=== PATIENT | female | born 1980 | race Caucasian/White ===

== ENCOUNTER → 2018-10-04 14:54 | Outpatient (CLI) | payer OTHER, SELFPAY ==
--- NOTE | 2018-10-04 14:58 | MR_ITS ---
MR ankle RT wo/w con CLINICAL INDICATION: Bilateral ankle pain following injury, posterior tibial strain, anterior talofibular ligament sprain, strain of the peroneal muscle group, peroneal tendinitis ITS.REASON: pain, ankle sprain ORDERING PHYSICIAN: Monica Dillon DPM PATIENT AGE: 38 years Comparison: 09/26/2018 TECHNIQUE: Multiplanar multiecho sequences are performed of the ankle without and with gadolinium enhancement. FINDINGS: No fracture or bone bruises evident Edema is present within the subcutaneous tissues along the medial aspect of the lower leg and ankle and to a lesser extent laterally. The anterior and posterior tibiofibular ligaments appear intact. The anterior tibiofibular ligament is however somewhat thin There does appear to be tear of the anterior talofibular ligament. The posterior talofibular ligament shows some increased signal but does appear intact. The deltoid ligament appears intact as does the Achilles tendon. The posterior tibialis, flexor digitorum longus, and flexor hallucis longus tendons appear intact.. There does appear to be a tear of the peroneal longus tendon approximately 2.8 cm distal to the tip of the fibula. The tendon fragments appear retracted by approximately 2.5 cm. There may be a few intact fibers present. The peroneal brevis appears intact.. The other tendons and ligaments appear intact. IMPRESSION: 1. Tear of the anterior talofibular ligament with sprain of the posterior talofibular ligament. 2. Tear of the peroneal longus tendon as described above. There may be a few intact fibers present. 3. Soft tissue swelling along the medial aspect of the ankle
== END ==
PROVIDERS: PCP Family Medicine; Visit Provider Podiatrist
DX: S93.401A Sprain of unspecified ligament of right ankle, initial encounter (principal)
CPT/HCPCS: 73723; A9576

== ENCOUNTER → 2018-10-10 15:21 | Outpatient (CLI) | payer OTHER, SELFPAY ==
[2018-10-10 16:28] LABS: Basophils % 0.4 % (0.1-2.0); Eosinophils % 0.2 % (0.1-12.0); Hematocrit 39.6 % (37.0-47.0); Lymphocytes # 1.8 K/mm3 (0.7-4.5); Lymphocytes % 24.5 % (10-50); Mean Corpuscular HGB Conc 32.9 g/dL (31.8-35.4); Mean Corpuscular Hemoglobin 29.2 pg (27.0-31.2); Mean Corpuscular Volume 88.9 fl (81-99); Mean Platelet Volume 8.3 fl (7.4-10.4); Monocytes # 0.4 K/mm3 (0.1-1.0); Monocytes % 5.8 % (1.7-9.3); Platelet Count 303 K/mm3 (142-424); Red Blood Count 4.45 M/mm3 (4.20-5.40); Red Cell Distribution Width 13.1 % (11.5-17.5); White Blood Count 7.3 K/mm3 (4.8-10.8)
[2018-10-10 17:16] LABS: Anion Gap 14.1 mEq/L (5-15); Blood Urea Nitrogen 14 mg/dL (7-18); Calcium 9.7 mg/dL (8.5-10.1); Carbon Dioxide 28 mmol/L (21.0-32.0); Chloride 103 mmol/L (98-107); Creatinine,Serum 0.67 mg/dL (0.55-1.02); Estimated Glomerular Filt Rate 100 ml/min (>60); GFR (African American) 121 ML/MIN (>60); Glucose 87 mg/dL (74-106); Potassium 4.1 mmoL/L (3.5-5.1); Sodium 141 mmol/L (136-145)
== END ==
PROVIDERS: PCP Family Medicine; Visit Provider Podiatrist
DX: Z01.818 Encounter for other preprocedural examination (principal); S86.311D Strain of muscle(s) and tendon(s) of peroneal muscle group at lower leg level, right leg, subsequent encounter
CPT/HCPCS: 36415; 80048; 85025; 93005

== ENCOUNTER → 2018-11-29 13:25 | Outpatient (CLI) | payer OTHER, SELFPAY ==
--- NOTE | 2018-11-29 13:30 | XR_ITS ---
PROCEDURE: XR ANKLE WT BEARING RT MIN 3V CLINICAL INDICATION: Post-op Follow-up ORIF COMPARISON: Ankle R from 09/11/2018 Ankle R from 09/26/2018 FINDINGS: Status post lateral bone plate placement with translucent fixator through the distal aspect of the tibia and fibula with a button along the medial aspect of the distal tibia and a small metallic anchor in the distal fibula. There is good alignment. IMPRESSION: Postsurgical changes as described above Dictated by: Bret Devi MD 11/29/2018 14:58 Electronically signed by Bret Devi MD in [place] 11/29/2018 14:58
== END ==
PROVIDERS: PCP Family Medicine; Visit Provider Podiatrist
DX: Z98.890 Other specified postprocedural states (principal); M25.571 Pain in right ankle and joints of right foot
CPT/HCPCS: 73610

== ENCOUNTER 2019-01-12 08:30 | Outpatient (RCR) | payer OTHER, SELFPAY ==
--- NOTE | 2018-12-19 16:33 | HMH.PTOPEV ---
PT Outpatient Evaluation Rehab PT Outpatient Evaluation Start: 12/19/18 15:50 Freq: Status: Active Protocol: Document 12/19/18 15:51 PEREZ (Rec: 12/19/18 16:33 ISSAFABY [id number]) Electronically Signed By Alvaro Prajapati PT 12/19/18 15:51 Outpatient Therapy Subjective History Subjective History This is the initial Physical Therapy evaluation for Winifred Fulton. Pt is a 38 y/o female referred to PT s/p R ankle surgery. Pt had syndesmosis repair, peroneal tendon debridement and ATF repair. 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 Pt reports she just thought she sprained her ankle. Pt reports this occurred 09/09/18 and she saw MD 09/11/18. Pt reports she was referred to DPM for care and had sx on 10/21/18. Pt is PPWB in boot, pt came in w/out axillary crutches. Pt also reports she is supposed to be on light duty but was full duty today and her ankle is hurting. Chief Complaint Pain,Stiff,Swelling,Weakness Symptom Type Ache,Throb,Sharp,Dull,Stabbing ,Burning,Shooting Symptoms Relieved By Rest/Positioning,Ice,OTC Meds, Prescription Meds Symptoms Aggravated By Standing,Physical Activity, Walking Prior Functional Limitations None Current Functional Limitations Housework,Driving,Squatting, Recreation Activity,Walking, Stairs Symptom Description Intermittent Level of pain today (0-10) 5 Pain scale - at its best (0-10) 0 Pain scale - at its worst (0-10) 5 Ankle/Foot Eval Gait Observation General Gait Pattern Observation Antalgic Gait,Decrease Weight Bear (R) Assistive Device Ambulation Assistive Device None Palpation Tenderness right Ankle/Foot Palpation Findings Tenderness Ankle/Foot Palpation Overall Comment TTP along incision/peroneal line and T/C joint ATF TTP positive Deltoid ligament TTP positive ROM Ankle/Foot Dorsiflexion w/Knee Extended -12 Active Range Motion (degrees) Ankle/Foot Plantar Flexion Active Range 40 o
== END 2019-01-12 08:35 | disposition home or self-care (01) ==
LOC: PT 08:30
PROVIDERS: Visit Provider Podiatrist
DX: M25.571 Pain in right ankle and joints of right foot (principal); Z98.890 Other specified postprocedural states
CPT/HCPCS: 97010; 97014; 97016; 97033; 97035; 97110; 97140; 97163; 97164; G0283

== ENCOUNTER → 2019-01-26 08:58 | Outpatient (CLI) | payer OTHER, SELFPAY ==
--- NOTE | 2019-01-26 09:03 | XR_ITS ---
PROCEDURE: XR FOOT WT BEARING RT 3V CLINICAL INDICATION: post op Pain in the arch of the foot status post surgery COMPARISON: FTR3 FOOT-RT-3 VIEWS from 03/19/2015 Foot R from 09/26/2018 XR ANKLE WT BEARING RT MIN 3V from 11/29/2018 XR ANKLE WT BEARING RT MIN 3V from 01/26/2019 FINDINGS: Hallux valgus with osteoarthritis of the 1st MTP joint with bunion formation at the distal aspect of the 1st metatarsal. No acute fracture or dislocation. Status post syndesmotic repair of the distal tib fib with lateral bone plate and medial metallic button as well as the small anchor screw in the distal fibula unchanged. The ankle mortise is preserved. There is some faint subcortical lucency of the talar dome both medially laterally and centrally. Other findings:None. IMPRESSION: 1. Postsurgical changes of the distal tib fib. 2. Faint lucency in the subcortical region of the talus dome nonspecific and could be related to osteopenia or developing osteonecrosis 3. Hallux valgus with osteoarthritis of the 1st MTP joint with bunion formation Dictated by: Bret Devi MD 01/26/2019 16:02 Electronically signed by Bret Devi MD in [place] 01/26/2019 16:02
== END ==
PROVIDERS: PCP Family Medicine; Visit Provider Podiatrist
DX: Z98.890 Other specified postprocedural states (principal); S99.911D Unspecified injury of right ankle, subsequent encounter; S93.421D Sprain of deltoid ligament of right ankle, subsequent encounter; S93.491D Sprain of other ligament of right ankle, subsequent encounter; R20.2 Paresthesia of skin
CPT/HCPCS: 73610; 73630

== ENCOUNTER 2019-05-25 08:00 | Outpatient (RCR) | payer OTHER, SELFPAY ==
--- NOTE | 2019-02-14 10:39 | HMH.PTOPEV ---
PT Outpatient Evaluation Rehab PT Outpatient Evaluation Start: 02/14/19 10:17 Freq: Status: Active Protocol: Document 02/14/19 10:17 ALEXANDREA (Rec: 02/14/19 10:38 ALEXANDREA [id number]) Electronically Signed By Israel Clement, PT 02/14/19 10:17 Outpatient Therapy Subjective History Subjective History Patient is a 39 year old female presenting to oupatient PT with reports of R foot/ ankle pain S/P R peroneus brevis/longs and ATFL repair performed on 10/21. Pt reports hx of recurrent ankle sprains . Initial injury occurred 09/07 while running at work. She had previously started PT after surgery, which was put on hold when she experienced a pop and resultant elevated pain levels. Pt reports MD ordered to hold on PT for 4 weeks and continue with boot. Comorbidities include asthma and allergies. Chief Complaint Pain,Spasms,Stiff,Clicks, Swelling Symptom Type Throb,Sharp,Burning,Tingling Symptoms Relieved By Rest/Positioning,Ice,OTC Meds Symptoms Aggravated By Standing,Physical Activity, Walking Prior Functional Limitations Housework,Standing,Squatting, Recreation Activity,Walking, Stairs,Balance Current Functional Limitations Housework,Standing,Squatting, Recreation Activity,Walking, Stairs,Balance Symptom Description Intermittent Level of pain today (0-10) 0 Pain scale - at its best (0-10) 0 Pain scale - at its worst (0-10) 8 Ankle/Foot Eval Gait Observation General Gait Pattern Observation Antalgic Gait,Decrease Weight Bear (R) Palpation Tenderness right Ankle/Foot Palpation Findings Tenderness ATF TTP positive ROM Ankle/Foot Dorsiflexion w/Knee Extended -11 Active Range Motion (degrees) Ankle/Foot Dorsiflexion w/Knee Extended -5 Passive Range (degrees) Ankle/Foot Plantar Flexion Active Range 40 of Motion (degrees) Ankle/Foot Plantar Flexion Passive Range 50 of Motion (degrees) Ankle/Foot Eversion Active Range of 16 Motion (degrees) Ankle/Foot Eversion Passive Range of 20 Motion (degrees) Ankle/Foot Inversion Active Range of
--- NOTE | 2019-03-21 09:46 | HMH.RHREAS ---
Rehab Reassessment Rehab OP Re-assessment Start: 03/21/19 09:26 Freq: Status: Active Protocol: Document 03/21/19 09:32 ALEXANDREA (Rec: 03/21/19 09:44 ALEXANDREA [id number]) Electronically Signed By Israel Clement, PT 03/21/19 09:32 Rehab Re-assessment Subjective Subjective Pt reports 75% improvement since start of care. Objective Objective Notes AROM/PROM: DF -5/-2; PF WNL; INV WNL; EV MMT: DF 4+/5, PF 5/5; INV 4/5; EV 4/5 Neuro WNL Pain: current 0/10; at worst 6 /10 Special tests: neg Assessment Progress Assessment Progressing as Expected Assessment Notes Pt has been seen for 8 visits to date. AROM improvements as noted above. ROM deficits persist with DF. Pt continues to have difficulty with prolonged standing/ walking actvities resulting in functional limitations with household, work related and recreational activities. Patient goals met STG 2 Goals Not Met STG 1, LTG's Revised Goals NA Plan Plan Continue with current POC Frequency of Therapy 2x/week Duration of therapy 4 weeks Time and Billing Re-Eval Time 15 Re-Eval Billing Units 1 PHYSICIAN CERTIFICATION: I certify the specified therapy services for Winifred Sanders are required, authorized, and reviewed every 30 days.
--- NOTE | 2019-04-27 08:36 | HMH.RHREAS ---
Rehab Reassessment Rehab OP Re-assessment Start: 03/21/19 09:26 Freq: Status: Active Protocol: Document 04/27/19 08:20 ALEXANDREA (Rec: 04/27/19 08:35 ALEXANDREA [id number]) Electronically Signed By Israel Clement, PT 04/27/19 08:20 Rehab Re-assessment Subjective Subjective Pt reports 80% improvement since start of care. Objective Objective Notes AROM: DF -2; PF WNL; INV WNL; EV 20 MMT: DF 5-/5, PF 5/5; INV 4+/5 ; EV 4+/5 Neuro WNL Pain: current 03/17; at worst Special tests: neg Walking tolerance 20' Standing tolerance 20' Assessment Progress Assessment Progressing as Expected Assessment Notes Pt has been seen for 18 visits to date. AROM improvements as noted above. ROM deficits persist with DF. Pt continues to have difficulty with prolonged standing/ walking actvities resulting in functional limitations with household, work related and recreational activities. Overall, improvements noted. Patient goals met STG's; LTG 1 Goals Not Met LTG 2-6 Revised Goals NA Plan Plan Continue with POC Frequency of Therapy 2x/week Duration of therapy 2 weeks Time and Billing Re-Eval Time 15 Re-Eval Billing Units 1 PHYSICIAN CERTIFICATION: I certify the specified therapy services for Winifred Sanders are required, authorized, and reviewed every 30 days.
== END 2019-05-25 09:06 | disposition home or self-care (01) ==
LOC: PT 08:00
PROVIDERS: Visit Provider Podiatrist
DX: S92.014 Nondisplaced fracture of body of right calcaneus (principal)
CPT/HCPCS: 20560; 97010; 97014; 97016; 97033; 97035; 97110; 97140; 97163; 97164; G0283

== ENCOUNTER → 2019-07-04 07:59 | Outpatient (CLI) | payer OTHER, SELFPAY ==
--- NOTE | 2019-07-04 08:08 | XR_ITS ---
PROCEDURE: XR FOOT WT BEARING RT 3V CLINICAL INDICATION: POST OP Pain COMPARISON: FTR3 FOOT-RT-3 VIEWS from 03/19/2015 Foot R from 09/26/2018 XR FOOT WT BEARING RT 3V from 01/26/2019 FINDINGS: There is mild hallux valgus with mild osteoarthritis of the 1st MTP joint with bunion formation. Normal alignment. No acute fracture or dislocation. Postsurgical changes are present with a bone plate at the distal fibula and an anchor screw in the distal aspect of the fibula. The joint spaces are well-preserved. No significant degenerative/arthritic changes. No erosive changes evident. Other findings:None. IMPRESSION: Postsurgical changes. Hallux valgus. Otherwise negative Dictated by: Bret Devi MD 07/05/2019 14:50 Electronically signed by Bret Devi MD in [place] 07/05/2019 14:50
--- NOTE | 2019-07-04 08:08 | XR_ITS ---
PROCEDURE: XR ANKLE WT BEARING RT MIN 3V CLINICAL INDICATION: POST OP Follow-up surgery COMPARISON: Ankle R from 09/26/2018 XR ANKLE RT MIN 3V from 10/21/2018 XR ANKLE WT BEARING RT MIN 3V from 11/29/2018 XR ANKLE WT BEARING RT MIN 3V from 01/26/2019 FINDINGS: Lateral fibular bone plate is present with a translucent fixator to the distal tibia. There is preservation of the ankle mortise. There is slight decreased attenuation along the lateral aspect of the talar dome. This is of questionable clinical significance. There is some generalized osteopenia which could account for this finding. Small anchor screw remains present in the distal fibula IMPRESSION: Good alignment status post ORIF as described above Dictated by: Bret Devi MD 07/04/2019 14:01 Electronically signed by Bret Devi MD in [place] 07/04/2019 14:01
== END ==
PROVIDERS: PCP Family Medicine; Visit Provider Podiatrist
DX: S93.491D Sprain of other ligament of right ankle, subsequent encounter (principal); M76.821 Posterior tibial tendinitis, right leg; Z98.890 Other specified postprocedural states
CPT/HCPCS: 73610; 73630

== ENCOUNTER 2019-08-21 13:07 | Emergency (ER) | payer OTHER, SELFPAY ==
[2019-08-21 13:32] VITALS: BP 128/75; PULSE 85; RESP 20; TEMP 36.7; O2SAT 98; BMI 26.5
[2019-08-21 13:48] LABS: UTC Strep Screen (Rapid) Positive (Negative)
--- NOTE | 2019-08-21 13:50 | HMH.EDUTC ---
[facility] [place] [facility] Disposition Clinical Impression: Strep throat Disposition: Home, Self-Care Condition on Discharge: Good Instructions: Strep Throat, DI for Strep Throat Additional Instructions: Drink plenty of fluids. Take tylenol or ibuprofen for pain or fever. Take the medications as directed. Follow up with your regular doctor. GO TO THE ER FOR ANY WORSENING SYMPTOMS Throw your tooth brush away and get a new one. Prescriptions: Amoxicillin [Amoxicillin 500mg Tab] 500 mg PO TID 10 Days #30 tab Transmission Status: Received by [facility] #[id number] Referrals: Babak Weller MD [Primary Care Provider] - Forms: Work/School Release Time of Disposition: 13:53 Medical Decision Making - Medical Records Medical records reviewed: No: I reviewed the patient's medical records. - Eron Inquiry Pt receiving controlled substance: No Vital Signs: 08/21/19 13:32 08/21/19 13:59 Temperature 98.0 F 98.0 F Temperature Source Oral Pulse Rate 85 Pulse Rate [Right Brachial] 85 Respiratory Rate 20 20 Blood Pressure 128/75 Blood Pressure [Right Arm] 128/75 Blood Pressure Mean [Right Arm] 92 Blood Pressure Source [Right Arm] Automatic Cuff Blood Pressure Position [Right Arm] Sitting 02 Sat by Pulse Oximetry 98 Oxygen Delivery Method Room Air - Lab Data Lab results reviewed: Yes: I reviewed the patient's lab results. Lab Results 08/21/19 13:40: Strep Scn Rapid Clinic Positive [facility] HPI - General Stated complaint: fever Time Seen by Provider: 08/21/19 13:50 Mode of Arrival: Ambulatory Source of Information: Patient Limitations: No Limitations Description of Symptoms (Recalled from Triage Doc. by RN): PATIENT C/O SORE THROAT SINCE WEDNESDAY, BUT OTHERWISE FEELS FINE. SHE THINKS IT IS DUE TO ALLERGIES. STATES THAT HER WORK IS REQUESTING A NOTE THAT IT'S OK FOR HER TO RETURN TO WORK HEENT Symptoms (Recalled from RN notes): No Resp Symptoms (Recalled from RN notes): No Skin Symptoms (Recalled from RN notes): No MS Symptoms (Recalled from RN notes): Yes Functional Status (Recalled from RN notes): WNL - History of Present Illness Provider Complaint: She c/o sore throat for the past 2 days. When she had her temperature checked this morning on her way in at work, it was 99.4. So, she was told that she needed to get checked out. She denies any cough or other documented fever. - Related Data Home Medications Medication Instructions Recorded Confirmed Albuterol Sulfate [Ventolin HFA 2 puffs PO DIRECTED 04/17/18 07/04/19 Inhaler] Loratadine [Claritin 10mg 10 mg PO DAILY 04/17/18 07/04/19 Tablet] Montelukast Sodium [Singulair 10mg 10 mg PO PM 04/17/18 07/04/19 tablet] beclomethasone dipropionate 40 1 spray INHALATION DAILY 30 Days 06/15/18 07/04/19 mcg/actuation HFA breath activated #11 g aerosol fluticasone propionate 50 1 spray INTRANASAL DAILY 30 Days 06/15/18 07/04/19 mcg/actuation nasal #16 g spray,suspension epinephrine 0.3 mg/0.3 mL 0.3 ml IM NEEDED PRN #2 each 07/30/18 07/04/19 injection, auto-injector ketotifen fumarate 0.025 % (0.035 1 drp OPHTHALMIC DAILY #5 ml 07/30/18 07/04/19 %) eye drops oxcarbazepine 300 mg tablet 300 mg PO DAILY #60 tab 07/30/18 07/04/19 azelastine 137 mcg (0.1 %) nasal 1 spray INTRANASAL DAILY #30 ml 09/16/18 07/04/19 spray aerosol amitriptyline 25 mg tablet PO 05/23/19 07/04/19 diclofenac sodium 1 % topical gel TOPICAL 07/04/19 07/04/19 Previous Rx's Medication Instructions Recorded Amoxicillin [Amoxicillin 500mg Tab] 500 mg PO TID 10 Days #30 tab 08/21/19 Allergies Allergy/AdvReac Type Severity Reaction Status Date / Time No Known Allergies Allergy Verified 07/04/19 08:34 - Worker's Comp Is this a Worker's Comp case?: No H History - Hepatitis A Screen Drug use history?: No High risk sexual behaviors?: No History of sexually transmitted infection?: No Currently employed?: No [employer]
[2019-08-21 13:59] VITALS: BP 128/75; PULSE 85; RESP 20; TEMP 36.7; O2SAT 98
== END 2019-08-21 14:04 | disposition home or self-care (01) ==
PROVIDERS: Emergency Provider Nurse Practitioner Family; PCP Family Medicine
DX: J02.0 Streptococcal pharyngitis (principal); J45.909 Unspecified asthma, uncomplicated; G43.709 Chronic migraine without aura, not intractable, without status migrainosus; Z79.899 Other long term (current) drug therapy
CPT/HCPCS: 87880; 99201

== ENCOUNTER → 2019-10-26 13:37 | Outpatient (CLI) | payer OTHER, SELFPAY ==
[2019-10-27 13:56] LABS: Covid-19 Nasal PCR Sendout Lex Not Detected
== END ==
PROVIDERS: Visit Provider Nurse Practitioner Family
DX: Z03.818 Encounter for observation for suspected exposure to other biological agents ruled out (principal)
CPT/HCPCS: U0004

== ENCOUNTER → 2020-07-15 16:32 | Outpatient (CLI) | payer OTHER, SELFPAY ==
--- NOTE | 2020-07-15 16:37 | XR_ITS ---
PROCEDURE: XR ANKLE WT BEARING RT MIN 3V CLINICAL INDICATION: postop pain COMPARISON: CR XR ANKLE RT MIN 3V from 10/21/2018 CR XR ANKLE WT BEARING RT MIN 3V from 11/29/2018 CR XR ANKLE WT BEARING RT MIN 3V from 01/26/2019 CR XR ANKLE WT BEARING RT MIN 3V from 07/04/2019 FINDINGS: Internal fixation of the distal fibular and distal tibia noted. The ankle mortise is congruent and the lateral clear space is preserved. Bone density is normal. No significant soft tissue abnormality is noted. Achilles tendon enthesopathy is noted. IMPRESSION: Postsurgical changes of the distal tibia and fibula. No acute abnormality. Dictated by: Ghada Peacock 07/16/2020 09:57 Ghada Peacock in [place] 07/16/2020 09:57
== END ==
PROVIDERS: PCP Family Medicine; Visit Provider Podiatrist
DX: M25.579 Pain in unspecified ankle and joints of unspecified foot (principal)
CPT/HCPCS: 73610

== ENCOUNTER → 2020-12-09 15:21 | Outpatient (CLI) | payer OTHER, SELFPAY ==
--- NOTE | 2020-12-09 15:24 | XR_ITS ---
PROCEDURE: XR ANKLE WT BEARING RT MIN 3V CLINICAL INDICATION: ankle pain, postop pain COMPARISON: CR XR ANKLE WT BEARING RT MIN 3V from 11/29/2018 CR XR ANKLE WT BEARING RT MIN 3V from 01/26/2019 CR XR ANKLE WT BEARING RT MIN 3V from 07/04/2019 CR XR ANKLE WT BEARING RT MIN 3V from 07/15/2020 FINDINGS: Status post syndesmotic repair distal tib fib with lateral fibular bone plate and translucent fixator with an anchor screw at the distal fibula. The ankle mortise is preserved. No acute fracture or dislocation. There is good alignment. IMPRESSION: Postsurgical changes distal tib fib as described above Dictated by: Bret Devi MD 12/09/2020 15:56 Bret Devi MD in [place] 12/09/2020 15:56
== END ==
PROVIDERS: PCP Family Medicine; Visit Provider Podiatrist
DX: M25.571 Pain in right ankle and joints of right foot (principal)
CPT/HCPCS: 73610

== ENCOUNTER → 2021-01-08 14:21 | Outpatient (CLI) | payer OTHER, SELFPAY ==
--- NOTE | 2021-01-08 14:21 | MR_ITS ---
PROCEDURE INFORMATION: Exam: MR Right Lower Extremity Joint Without and With Contrast; Ankle Exam date and time: 01/08/2021 2:21 PM Age: 40 years old Clinical indication: Right; Prior surgery; Surgery date: 6+ months; Surgery type: Tendon/ligament repair; Patient HX: PT C/O medial RT ankle pain with no known injury or trauma. ; Additional info: Right ankle pain TECHNIQUE: Imaging protocol: MR of the Right lower extremity without and with contrast. Exam focused on the ankle. Contrast material: ISOVUE; Contrast volume: 17 ml; Contrast route: IV; COMPARISON: FINDINGS: Bones and cartilage: Postoperative internal fixation identified of the distal fibula and tibia. This is new compared to the previous MRI. Normal alignment of the tibiotalar joint. No acute marrow edema involving the ankle. Small calcaneal spur. Joint spaces: Minimal tibiotalar and subtalar joint effusions. LIGAMENTS: Distal tibiofibular syndesmosis: No tear. Anterior talofibular ligament: No tear. Posterior talofibular ligament: No tear. Calcaneofibular ligament: No tear. Deltoid ligament complex: No tear. TENDONS: Flexor tendons of foot: See below. Tibialis posterior tendon: See below. Peroneal tendons: Tendinosis of the peroneal tendons. Tenosynovitis of the posterior tibialis tendon. Minimal tenosynovitis of the flexor digitorum tendon. Extensor tendons of foot: Unremarkable as visualized. Tibialis anterior tendon: Unremarkable as visualized. Achilles tendon: Unremarkable as visualized. Tarsal canal (Sinus tarsi): Minimal edema within the sinus tarsi. Muscles: No visualized acute abnormality. Soft tissues: Minimal fluid within the retrocalcaneal bursa. Plantar fascia: Intact, as visualized. IMPRESSION: 1. Postoperative internal fixation identified of the distal fibula and tibia. This is new compared to the previous MRI. 2. Tendinosis of the peroneal tendons. Tenosynovitis of the posterior tibialis tendon. Minimal tenosynovitis of the flexor digitorum tendon. 3. Minimal tibiotalar and subtalar joint effusions. 4. Additional findings described above.
== END ==
PROVIDERS: PCP Family Medicine; Visit Provider Podiatrist
DX: M25.571 Pain in right ankle and joints of right foot (principal); M76.821 Posterior tibial tendinitis, right leg; S86.111A Strain of other muscle(s) and tendon(s) of posterior muscle group at lower leg level, right leg, initial encounter; S99.911A Unspecified injury of right ankle, initial encounter; Z96.9 Presence of functional implant, unspecified
CPT/HCPCS: 73723; A9576

== ENCOUNTER → 2021-01-20 09:35 | Outpatient (CLI) | payer OTHER, SELFPAY | PROVIDERS: Visit Provider Nurse Practitioner | DX: Z20.822 Contact with and (suspected) exposure to COVID-19 (principal) | CPT/HCPCS: C9803; U0003; U0005 ==

== ENCOUNTER 2021-02-28 04:26 | Emergency (ER) | payer OTHER, SELFPAY ==
[2021-02-28 04:27] VITALS: BP 128/62; PULSE 122; RESP 18; TEMP 37.7; O2SAT 98; BMI 26.5
--- NOTE | 2021-02-28 04:52 | XR_ITS ---
PROCEDURE INFORMATION: Exam: XR Chest Exam date and time: 02/28/2021 4:52 AM Age: 41 years old Clinical indication: Shortness of breath and other: Weakness; Patient HX: SOA earlier tonight but not currently; Additional info: Darin TECHNIQUE: Imaging protocol: XR of the chest. Views: 2 views. COMPARISON: CR CXR CHEST(2 VIEWS-NOT PORTABLE) 09/29/2016 6:37 PM FINDINGS: Lungs: Unremarkable. No consolidation. Pleural spaces: Unremarkable. No pleural effusion. No pneumothorax. Heart/Mediastinum: Unremarkable. No cardiomegaly. Bones/joints: Unremarkable. IMPRESSION: No acute findings.
[2021-02-28 04:59] LABS: Influenza A, PCR Not Detected (NotDetected); Influenza B, PCR Not Detected (NotDetected); Microscopic, Urine URINE MICROSCOPIC (MICROSCOPIC)
[2021-02-28 05:02] LABS: Basophils # 0.1 K/mm3 (0-0.2); Basophils % 1.4 % (0.1-2.0); Eosinophils # 0.1 K/mm3 (0.0-0.4); Eosinophils % 1.3 % (0.1-12.0); Hematocrit 43.1 % (37.0-47.0); Hemoglobin 14.1 g/dL (12.2-16.2); Lymphocytes # 0.8 K/mm3 (0.7-4.5); Lymphocytes % 18.5 % (10-50); Mean Corpuscular HGB Conc 32.6 g/dL (31.8-35.4); Mean Corpuscular Hemoglobin 29.4 pg (27.0-31.2); Mean Corpuscular Volume 89.9 fl (81-99); Mean Platelet Volume 9.2 fl (7.4-10.4); Monocytes # 0.2 K/mm3 (0.1-1.0); Monocytes % 4.7 % (1.7-9.3); Neutrophils # 3.3 K/mm3 (1.8-7.8); Neutrophils % 74.1 % (37.0-80.0); Platelet Count 221 K/mm3 (142-424); Red Blood Count 4.79 M/mm3 (4.20-5.40); Red Cell Distribution Width 13.7 % (11.5-17.5); White Blood Count 4.5 K/mm3 (4.8-10.8)
[2021-02-28 05:05] LABS: Appearance,Urine CLEAR (Clear); Bilirubin,Urine Negative (Negative); Blood, Urine TRACE-I (Negative); Color,Urine YELLOW (Yellow); Glucose,Urine (UA) Negative (Negative); Ketones,Urine Negative (Negative); Leukocyte Esterase,Urine TRACE (Negative); Nitrate,Urine Negative (Negative); Protein,Urine Negative (Negative); Urobilinogen,Urine 0.2 EU/dl (0.2)
[2021-02-28 05:14] LABS: Alanine Aminotransferase 27 U/L (12-78); Albumin Level 4.5 g/dl (3.5-5.0); Albumin/Globulin Ratio 1.5 (1.1-1.8); Alkaline Phosphatase 107 U/L (38-126); Anion Gap 10.4 mEq/L (5-15); Aspartate Amino Transferase 36 U/L (14-36); Blood Urea Nitrogen 10 mg/dl (7-17); Calcium 8.9 mg/dl (8.4-10.2); Carbon Dioxide 30 mmol/L (22.0-30.0); Chloride 99 mmol/L (98-107); Creatinine Clearance Estimated 101 mL/min (50-200); Estimated Glomerular Filt Rate 80 ml/min (>60); GFR (African American) 97 ML/MIN (>60); Glucose 135 mg/dl (74-100); Potassium 3.4 mmoL/L (3.5-5.1); Sodium 136 mmol/L (136-145); Total Protein,Serum 7.5 g/dl (6.3-8.2)
[2021-02-28 05:15] LABS: Bilirubin,Total < 0.1 mg/dl (0.2-1.3)
[2021-02-28 05:18] LABS: Bacteria,Urine 1+ /lpf; Barbiturates Screen,Urine Negative ng/ml (<200); Benzodiazepines Screen,Urine Negative ng/ml (<200); WBC,Urine Occasional #/hpf (0-3)
[2021-02-28 05:19] LABS: Amphetamine/Metha Screen,Urine Negative ng/ml (<1000); Methadone Screen,Urine Negative ng/ml (<300)
[2021-02-28 05:20] LABS: C-Reactive Protein 29.8 mg/L (0-4); Cannabinoid Screen,Urine Negative ng/ml (<50)
[2021-02-28 05:21] LABS: Cocaine Screen,Urine Negative ng/ml (<300)
[2021-02-28 05:22] LABS: Opiate Screen,Urine Negative ng/ml (<300); Phencyclidine Screen,Urine Negative ng/ml (<25)
[2021-02-28 05:30] LABS: Coronavirus 19, PCR Detected (NotDetected)
[2021-02-28 05:33] LABS: Procalcitonin 0.067 ng/mL (0.0-2.0)
[2021-02-28 05:43] LABS: Erythrocyte Sedimentation Rate 41 mm/hr (0-20)
--- NOTE | 2021-02-28 05:44 | HMH.EDURI ---
ED Disposition Clinical Impression: COVID-19, Vasovagal episode Disposition: Home, Self-Care Condition on Discharge: Good Instructions: DI for COVID-19 (Suspected or Confirmed ) Additional Instructions: fluids and see pcp for follow up Referrals: Babak Weller MD [Primary Care Provider] - - Critical Care Critical Care Time: No Attestation: On 02/28/21, the high probability of a clinically significant, sudden or life threatening deterioration of the following system(s) required my full and direct attention, intervention and personal management. The time I documented below is in addition to time spent performing reported procedures but includes the following listed in this critical care notation. Medical Decision Making - Medical Records Medical records reviewed: Yes: I reviewed the patient's medical records. - Eron Inquiry Pt receiving controlled substance: No Vital Signs: 02/28/21 04:27 Temperature 99.9 F H Temperature Source Oral Pulse Rate [Right] 122 H Respiratory Rate 18 Blood Pressure [Right Arm] 128/62 Blood Pressure Mean [Right Arm] 84 02 Sat by Pulse Oximetry 98 - Lab Data Lab results reviewed: Yes: I reviewed the patient's lab results. Lab Results 02/28/21 04:44: Urine Color Yellow, Urine Appearance Clear, Urine pH 6.0, Ur Specific [place] 1.020, Urine Protein Negative, Urine Glucose (UA) Negative, Urine Ketones Negative, Urine Blood Trace-i, Urine Nitrate Negative, Urine Bilirubin Negative, Urine Urobilinogen 0.2, Ur Leukocyte Esterase Trace, Urine RBC 3-5, Urine WBC Occasional, Urine Bacteria 1+ 02/28/21 04:44: WBC 4.5 L, RBC 4.79, Hgb 14.1, Hct 43.1, MCV 89.9, MCH 29.4, MCHC 32.6, RDW 13.7, Plt Count 221, MPV 9.2, Neut % (Auto) 74.1, Lymph % (Auto) 18.5, [place] % (Auto) 4.7, Eos % (Auto) 1.3, Baso % (Auto) 1.4, Neut # (Auto) 3.3, Lymph # (Auto) 0.8, [place] # (Auto) 0.2, Eos # (Auto) 0.1, Baso # (Auto) 0.1, ESR 41 H 02/28/21 04:44: Sodium 136, Potassium 3.4 L, Chloride 99, Carbon Dioxide 30, Anion Gap 10.4, BUN 10, Creatinine 0.80, Estimated Creat Clear 101, Estimated GFR 80, Est GFR ( Amer) 97, Glucose 135 H, Calcium 8.9, Total Bilirubin < 0.1 L, AST 36, ALT 27, Alkaline Phosphatase 107, C-Reactive Protein 29.8 H, Total Protein 7.5, Albumin 4.5, Globulin 3.0, Albumin/Globulin Ratio 1.5, Procalcitonin 0.067 02/28/21 04:44: Urine Opiates Screen Negative, Urine Methadone Screen Negative, Ur Barbituates Screen Negative, Ur Phencyclidine Scrn Negative, Ur Amphetamines Screen Negative, U Benzodiazepines Scrn Negative, Urine Cocaine Screen Negative, U Marijuana (THC) Screen Negative 02/28/21 04:44: SARS-CoV-2 (PCR) Detected A, Influenza A Untype (PCR) Not detected, Influenza Type B (PCR) Not detected 02/28/21 04:57: Lactate 1.0 Result diagrams: 02/28/21 04:44 02/28/21 04:44 Orders (Tests/Meds): ED MEDICATIONS Generic Name Dose Route Start Last Admin Trade Name Freq PRN Reason Stop Dose Admin Sodium Chloride 1,000 mls @ 999 mls/hr 02/28/21 05:00 02/28/21 05:14 Sod Chlor 0.9% 1000ml Bag IV 02/28/21 06:00 999 mls/hr .[id number] HENRY Administration Discontinued Medications Generic Name Dose Route Start Last Admin Trade Name Freq PRN Reason Stop Dose Admin Dexamethasone Sodium Phosphate 10 mg 02/28/21 05:41 Dexamethasone 4mg/Ml 5ml Mdv IV 02/28/21 05:42 ONCE ONE Ketorolac Tromethamine 30 mg 02/28/21 05:41 Ketorolac 30mg/Ml Vial IV 02/28/21 05:42 ONCE ONE ORDERS Category Date Time Status Blood Culture Stat Micro 02/28/21 04:57 Received - Radiology Data #1 Image(s): Chest Image Reviewed: Yes I have reviewed radiologist's interpretation Preliminary Findings: Normal/NAD Medical Decision Narrative: has uri sx and cough with positive covid-19 and no o2 requirement and neg cxr URI/Sore Throat HPI - General Chief Complaint: Weakness Stated Complaint: abd pain , fainting Time Seen by Provider: 02/28/21 05:44 Mode of Arrival: A
[2021-02-28 06:31] VITALS: BP 116/59; PULSE 90; RESP 18; TEMP 37.2; O2SAT 98
== END 2021-02-28 06:35 | disposition home or self-care (01) ==
PROVIDERS: Emergency Provider Emergency Medicine; PCP Family Medicine
DX: U07.1 COVID-19 (principal); R55 Syncope and collapse; J45.909 Unspecified asthma, uncomplicated
CPT/HCPCS: 71046; 80053; 80305; 81001; 83605; 84145; 85025; 85651; 86140; 87040; 87086; 96365; 96375; 99284; C9803; U0003; U0005

== ENCOUNTER 2021-03-05 14:59 | Emergency (ER) | payer OTHER, SELFPAY ==
[2021-03-05 15:01] VITALS: BP 109/46; PULSE 103; RESP 18; TEMP 39.1; O2SAT 94; BMI 31.8
[2021-03-05 15:19] VITALS: BMI 31.8
--- NOTE | 2021-03-05 15:20 | XR_ITS ---
PROCEDURE: XR CHEST PORTABLE CLINICAL HISTORY: covid +, SOA, cough COMPARISON: No exams were available for comparison FINDINGS: The cardiomediastinal silhouette and pulmonary vascularity are within normal limits. Multifocal bilateral patchy areas of infiltrate in the mid lower lung zones suspicious for Covid19 pneumonia.. No acute bony abnormalities. IMPRESSION: Multifocal infiltrates suspicious for Covid19 pneumonia Dictated by: Bret Devi MD 03/05/2021 16:02 Bret Devi MD in OV 03/05/2021 16:02
--- NOTE | 2021-03-05 16:15 | HMH.EDGENADL ---
ED Disposition Clinical Impression: COVID-19 Disposition: Home, Self-Care Condition on Discharge: Good Referrals: Babak Weller MD [Primary Care Provider] - - Critical Care Critical Care Time: No Attestation: On 03/05/21, the high probability of a clinically significant, sudden or life threatening deterioration of the following system(s) required my full and direct attention, intervention and personal management. The time I documented below is in addition to time spent performing reported procedures but includes the following listed in this critical care notation. Medical Decision Making - Eron Inquiry Pt receiving controlled substance: No Vital Signs: 03/05/21 15:01 03/05/21 16:34 03/05/21 17:00 Temperature 102.3 F H Temperature Source Oral Pulse Rate 92 H 91 H Pulse Rate [Right Radial] 103 H Respiratory Rate 18 18 18 Blood Pressure 101/56 L 100/53 L Blood Pressure [Right Arm] 109/46 L Blood Pressure Mean 73 65 Blood Pressure Mean [Right Arm] 67 Blood Pressure Source [Right Arm] Automatic Cuff Blood Pressure Position [Right Arm] Sitting 02 Sat by Pulse Oximetry 94 L 95 94 L Oxygen Delivery Method Room Air Orders (Tests/Meds): ED MEDICATIONS Generic Name Dose Route Start Last Admin Trade Name Freq PRN Reason Stop Dose Admin Sodium Chloride 1,000 mls @ 999 mls/hr 03/05/21 16:30 03/05/21 16:37 Sod Chlor 0.9% 1000ml Bag IV 03/05/21 17:30 999 mls/hr .[id number] HENRY Administration Discontinued Medications Generic Name Dose Route Start Last Admin Trade Name Freq PRN Reason Stop Dose Admin Acetaminophen 1,000 mg 03/05/21 15:19 03/05/21 15:25 Acetaminophen 500mg Tab PO 03/05/21 15:20 1,000 mg ONCE ONE Administration Ketorolac Tromethamine 30 mg 03/05/21 16:19 03/05/21 16:37 Ketorolac 30mg/Ml Vial IV 03/05/21 16:20 30 mg ONCE ONE Administration Medical Decision Narrative: Patient presents with vital signs significant for fever and tachycardia. Patient is otherwise well-appearing with the exception of minor malaise. Patient's oxygenation remained stable while in emergency department. Patient was treated with symptomatic support including ibuprofen and Tylenol and observed for any signs of decline. After reasonable amount of observation, the patient was discharged. General Adult HPI - General Stated complaint: covid pos 02/28 worsening Time Seen by Provider: 03/05/21 16:15 - History of Present Illness HPI narrative: Patient is an otherwise healthy 41-year-old female who presents for worsening symptoms of Covid. Patient was diagnosed on the , symptoms preceded by 1 day. Patient's had persistent fevers and malaise. This has been complicated by a headache. Patient reports no neurologic symptoms such as weakness, numbness, ataxia. Patient has been taking ibuprofen and Tylenol without resolution of fever. No chest pain. Intermittent cough. No rash. - Related Data Home Medications Medication Instructions Recorded Confirmed Albuterol Sulfate [Ventolin HFA 2 puffs PO DIRECTED 04/17/18 02/28/21 Inhaler] Montelukast Sodium [Singulair 10mg 10 mg PO PM 04/17/18 02/28/21 tablet] fluticasone propionate 50 1 spray INTRANASAL DAILY 30 Days 06/15/18 02/28/21 mcg/actuation nasal #16 g spray,suspension epinephrine 0.3 mg/0.3 mL 0.3 ml IM NEEDED PRN #2 each 07/30/18 02/28/21 injection, auto-injector ketotifen fumarate 0.025 % (0.035 1 drp OPHTHALMIC DAILY #5 ml 07/30/18 02/28/21 %) eye drops oxcarbazepine 300 mg tablet 300 mg PO DAILY #60 tab 07/30/18 02/28/21 amitriptyline 25 mg tablet 25 mg PO DAILY 05/23/19 02/28/21 sumatriptan succinate 100 mg tablet 100 mg PO DAILY 09/25/19 02/28/21 levocetirizine 5 mg tablet 5 mg PO DAILY 12/23/20 02/28/21 Previous Rx's Medication Instructions Recorded diclofenac sodium 1 % topical gel 4 g TOPICAL QID PRN #30 g 09/25/19 Allergies Allergy/AdvReac Type Severi
[2021-03-05 16:34] VITALS: BP 101/56; PULSE 92; RESP 18; O2SAT 95
[2021-03-05 17:00] VITALS: BP 100/53; PULSE 91; RESP 18; O2SAT 94
[2021-03-05 17:46] VITALS: BP 100/53; PULSE 84; RESP 19; TEMP 36.9; O2SAT 94
== END 2021-03-05 17:46 | disposition home or self-care (01) ==
PROVIDERS: Emergency Provider Internal Medicine Critical Care Medicine; PCP Family Medicine
DX: U07.1 COVID-19 (principal); J45.909 Unspecified asthma, uncomplicated; G43.709 Chronic migraine without aura, not intractable, without status migrainosus
CPT/HCPCS: 71045; 96365; 96375; 99282

== ENCOUNTER → 2021-08-08 16:35 | Outpatient (CLI) | payer OTHER, SELFPAY ==
--- NOTE | 2021-08-08 16:43 | XR_ITS ---
PROCEDURE INFORMATION: Exam: XR Right Tibia and Fibula Exam date and time: 08/08/2021 4:45 PM Age: 41 years old Clinical indication: Pain; Ankle; Right; Prior surgery; Surgery date: 6+ months; Additional info: Pain, injury TECHNIQUE: Imaging protocol: XR Right tibia and fibula. Views: 2 views. COMPARISON: CR XR TIBIA FIBULA RT 2V 10/29/2018 6:47 PM FINDINGS: Bones/joints: Lateral fixation plate and numerous corticomedullary screws are identified along the distal lateral fibular diaphysis. There is a bone plug in the region of the lateral malleolus and a fixation button along the medial tibial diaphysis. Dorsal calcaneal spur is present. Soft tissues: Normal. IMPRESSION: 1. No acute fracture is identified. 2. Lateral fixation plate and numerous corticomedullary screws are identified along the distal lateral fibular diaphysis. There is a bone plug in the region of the lateral malleolus and a fixation button along the medial tibial diaphysis. 3. Dorsal calcaneal spur is present.
--- NOTE | 2021-08-08 16:43 | XR_ITS ---
PROCEDURE INFORMATION: Exam: XR Right Ankle Exam date and time: 08/08/2021 4:45 PM Age: 41 years old Clinical indication: Pain; Ankle; Right; Prior surgery; Surgery date: 6+ months; Additional info: Ankle pain, injury TECHNIQUE: Imaging protocol: XR Right ankle. Views: 3 or more views. COMPARISON: MR ANKLE RT WO/W CON 01/08/2021 2:30 PM FINDINGS: Bones/joints: Postoperative changes consistent with previous ORIF. Involving the distal tibia and fibula. No evidence of acute osseous injury. No findings to suggest widening of the syndesmosis. Soft tissues: Normal. IMPRESSION: 1. Postoperative changes as described above. 2. No evidence of acute osseous injury. No findings to suggest syndesmotic injury.
== END ==
PROVIDERS: PCP Family Medicine; Visit Provider Podiatrist
DX: S99.911A Unspecified injury of right ankle, initial encounter (principal); R52 Pain, unspecified
CPT/HCPCS: 73590; 73610

== ENCOUNTER → 2021-09-18 07:58 | Outpatient (CLI) | payer OTHER, SELFPAY ==
--- NOTE | 2021-09-18 08:17 | MR_ITS ---
FINAL REPORT CLINICAL HISTORY: pain.HISTORY OF ANKLE SURGERY 2 YEARS AGO. MEDIAL SIDED ANKLE PAIN FOR 1 MONTH SINCE ROLLED ANKLE. 17ML PROHANCE GIVEN. FINDINGS: Multiplanar MR imaging of the right ankle was obtained with and without contrast. The Achilles tendon appears intact. There is mild fusiform enlargement of the Achilles tendon which may be related to a mild chronic partial tear. Magnetic susceptibility artifact is seen in the distal fibula consistent with sideplate and screws. There is no evidence of osteochondral lesion. The supporting tendons appear intact. There is no evidence of abnormal contrast enhancement. IMPRESSION: Postsurgical changes in the distal fibula. Mild fusiform enlargement of the Achilles tendon, may be mild chronic partial tear. Reviewed, Interpreted and Dictated by Arpit Sam MD Transcribed by Ely Kennedy Authenticated and . [facility]
== END ==
PROVIDERS: PCP Nurse Practitioner Family; Visit Provider Podiatrist
DX: M25.572 Pain in left ankle and joints of left foot (principal)
CPT/HCPCS: 73723; A9576

== ENCOUNTER → 2021-10-29 14:19 | Outpatient (CLI) | payer OTHER, SELFPAY ==
--- NOTE | 2021-10-29 14:29 | XR_ITS ---
FINAL REPORT CLINICAL HISTORY: right knee pain FINDINGS: RIGHT KNEE: Four views of the right knee obtained. There is no acute fracture or dislocation. The joint spaces are intact.. There is no soft tissue abnormality. IMPRESSION: No acute bony abnormality. Reviewed, Interpreted and Dictated by Arpit Sam MD Transcribed by Lorena Alvarado Authenticated and . [facility]
== END ==
PROVIDERS: PCP Nurse Practitioner Family
DX: M25.561 Pain in right knee (principal)
CPT/HCPCS: 73564

== ENCOUNTER → 2021-12-31 16:15 | Outpatient (CLI) | payer OTHER, SELFPAY ==
--- NOTE | 2021-12-31 16:16 | MR_ITS ---
PROCEDURE INFORMATION: Exam: MR Right Lower Extremity Joint Without Contrast; Ankle Exam date and time: 12/31/2021 4:43 PM Age: 41 years old Clinical indication: Pain; Ankle; Right; Prior surgery; Surgery date: 6+ months; Additional info: Pain. Ankle surgery 2019. Fell and ankle pain 5 months ago. Swelling in ankle. TECHNIQUE: Imaging protocol: Magnetic resonance imaging of the Right lower extremity without contrast. Exam focused on the ankle. COMPARISON: MR ANKLE RT WO/W CON 09/18/2021 8:16 AM FINDINGS: Bones and cartilage: Magnetic susceptibility is associated with postoperative internal fixation of the distal tibia and fibula, stable compared to the previous exam. A calcaneal spur is identified. Degenerative spurring is identified of the 1st metatarsal head. Mild edema is again visualized within the 1st metatarsal head, likely secondary to arthropathy. Evaluation of the forefoot is limited on this study. Degenerative spurring of the medial malleolus and adjacent talus. No dislocation of the ankle. Aside from the areas of postoperative change, there is no significant marrow edema involving the ankle to suggest osteomyelitis. Joint spaces: Small tibiotalar and subtalar joint effusions. A small amount of fluid is seen within the spring ligament recess, with a small talonavicular effusion. LIGAMENTS: Distal tibiofibular syndesmosis: Minimal edema/fluid adjacent to the anterior tibiofibular ligament. Ligament sprain cannot be excluded. Anterior talofibular ligament: No visualized tear. Posterior talofibular ligament: No visualized tear. Calcaneofibular ligament: No visualized tear. Deltoid ligament complex: No visualized tear. TENDONS: Flexor tendons of foot: Unremarkable as visualized. Tibialis posterior tendon: Tenosynovitis of the posterior tibialis tendon. Peroneal tendons: Unremarkable as visualized. Extensor tendons of foot: Unremarkable as visualized. Tibialis anterior tendon: Unremarkable as visualized. Achilles tendon: Mild swelling is identified posterior to the Achilles tendon. No visualized Achilles tendon tear identified. Tarsal canal (Sinus tarsi): Edema is seen within the sinus tarsi. Muscles: No visualized acute abnormality. Soft tissues: Minimal fluid within the retrocalcaneal bursa. Additional soft tissue swelling is identified medial and lateral to the ankle, as well as involving the foot. Plantar fascia: Intact, as visualized. IMPRESSION: 1. Tenosynovitis of the posterior tibialis tendon. 2. Degenerative spurring is identified of the 1st metatarsal head. Mild edema is again visualized within the 1st metatarsal head, likely secondary to arthropathy. 3. Stable postoperative changes involving the distal tibia and fibula. 4. Small effusions. 5. Mild soft tissue swelling of the foot and ankle. 6. Additional findings described above.
== END ==
PROVIDERS: PCP Podiatrist; Visit Provider Podiatrist
DX: S86.011D Strain of right Achilles tendon, subsequent encounter (principal)
CPT/HCPCS: 73721

== ENCOUNTER 2022-01-27 16:00 | Outpatient (RCR) | payer OTHER, SELFPAY ==
--- NOTE | 2021-11-03 11:14 | HMH.PTOPEV ---
PT Outpatient Evaluation Rehab PT Outpatient Evaluation Start: 11/03/21 07:56 Freq: Status: Active Protocol: Document 11/03/21 07:59 VICKI (Rec: 11/03/21 11:14 VICKI [id number]) E-signed By Olesya Liu, PT Outpatient Therapy Subjective History Subjective History Pt is a 41 y/o female that reports she had right ankle surgery in 2018. 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 Pt reports she tried to rest that weekend without improvements then went to the doctor. Per operative report surgery performed on 10/21/18 included right peroneus brevis tendon debridement and repair , right peroneus longus tendon debridement and repair, right ATFL open primary repair modified Brostrum, right syndesmosis ORIF, and right ankle and STJ synovectomy. Pt reports she was progressing well, going to PT and was walking FWB in a tennis shoe until she fell on July 31 when her foot caught the edge of a sidewalk. Pt reports she had xrays after the fall without signs of fractures. Pt had an ankle MRI at [facility] on showing postsurgical changes of the distal fibula and potential mild chronic partial Thornton's tear. Pt reports after the fall she was placed in a short cast which was recently removed on and was placed in a boot with TTWB using bilateral axillary crutches. Pt reports she was given medication for pain she takes at night to assist with sleeping. Pt reports shooting pain into the posterior calf that started when she was placed in the
--- NOTE | 2021-12-02 18:12 | HMH.RHREAS ---
Rehab Reassessment Rehab OP Re-assessment Start: 12/02/21 16:21 Freq: Status: Active Protocol: Document 12/02/21 17:09 VICKI (Rec: 12/02/21 18:11 VICKI [id number]) E-signed By Olesya Liu PT Rehab Re-assessment Subjective Subjective Pt reports her knee has been feeling better since starting PT; however, states she feels that her ankle has not improved much. Pt reports it has become more irritated since getting injections. Pt reports hypersensitivty of the medial ankle & distal calf ( placing foot in water, with light touch), changing colors such as red/purple, and decreased temperature compared to the L foot when asked. Pt also reports noted swelling of the dorsum of the R foot. Pt reports stinging of the lower calf and sometimes medial ankle as well as intermittents sharp jabs. Pt denies noted sweating or dryness. Pt reports she has been trying to put some weight through the foor with 6-7/10 pain. Pt reports she has been performing her HEP off and on at home. Objective Objective Notes Observation: redness and swelling on dorsum of the R foot compared to L TTP: hypersensitivity to light touch of the heel, medial ankle, and achilles tendon R ankle figure 8: 51.5 cm (51 cm on L) R ankle AROM: DF 6, PF 30, Inv 13, Eversion 9 (pain with all planes) R ankle MMT: PF 3/5, DF 4-/5, Eversion 3+/5, Inv 4-/5 (all painful) Assessment Progress Assessment Slower Than Expected Assessment Notes Pt has attended 8 PT session consisting of [facility] ankle AROM, LE strengthening/stretching exercises, and modalities with
--- NOTE | 2022-01-01 09:07 | HMH.RHREAS ---
Rehab Reassessment Rehab OP Re-assessment Start: 12/02/21 16:21 Freq: Status: Active Protocol: Document 01/01/22 07:57 MAURYSHAUN (Rec: 01/01/22 09:06 VICKI [id number]) E-signed By Olesya Liu PT Rehab Re-assessment Subjective Subjective Pt reports her ankle doesn't seem like it is improving overall. Pt reports she has some days that it feels okay when she is not doing any activity but most days she is painful. Pt reports pain at worse as 7/10 within the past week with worse pain at night time, with driving, and when she is up on her feet a lot. Pt reports her knee feels better overall. Pt reports she has been trying to sit with her foot flat on the ground while at rest and only putting pressure through it when standing at rest. Pt reports on Wednesday she had her foot hanging down and noticed her pinky toe turned blue and then improved with elevation and her foot still feels cold a lot. Pt also reports intermittent tingling in various places of her foot. She reports stinging/stabbing pain of her calf. Objective Objective Notes R ankle AROM: DF 5, PF 22, 12 eversion (lateral p!), 13 inversion [5/10 pain with AROM ] R ankle strength: inversion 4- /5, eversion 3+/5, DF 4-/5, PF 4-/5 [6/10 pain with RROM ] Palpation: moderate tenderness to distal fibula, lateral malleolus, ATFL, medial malleolus, posterior tibialis tendon, Assessment Progress Assessment Slower Than Expected Assessment Notes Pt has attended 13 visits of PT consisting of [facility] ankle AROM, isometrics strengthening , stretching, hip/quad
== END 2022-01-27 16:05 | disposition home or self-care (01) ==
LOC: PT 16:00
PROVIDERS: PCP Nurse Practitioner Family; Visit Provider Podiatrist
DX: S86.001D Unspecified injury of right Achilles tendon, subsequent encounter (principal); Z98.890 Other specified postprocedural states
CPT/HCPCS: 97010; 97014; 97016; 97033; 97035; 97110; 97112; 97140; 97163; 97164; 97530; G0283

== ENCOUNTER → 2022-02-02 10:38 | Outpatient (CLI) | payer OTHER, SELFPAY ==
--- NOTE | 2022-02-02 10:53 | ECG_ITS ---
APPROVED REPORT Exam: Resting ECG HR:97 bpm ECG Measurements Heart Rate 97 AXES TX 176 P 68 QRSd 91 QRS 92 QT 316 T 19 QTc 371 Conclusion SINUS RHYTHM BORDERLINE RIGHT AXIS DEVIATION [QRS AXIS > 90] NONSPECIFIC T-WAVE ABNORMALITY BORDERLINE ECG UNCONFIRMED REPORT Electronically signed by : Babak Bui MD 02/02/2022 21:09:48
--- NOTE | 2022-02-02 11:05 | XR_ITS ---
FINAL REPORT CLINICAL HISTORY: asthma, pre op COMPARISON: 03/05/2021 FINDINGS: TWO-VIEW CHEST Two views of the chest were obtained. The heart size and pulmonary vascularity are within normal limits. The mediastinum is normal. There is resolved pneumonia since the prior exam. There is scattered scarring noted throughout the lungs at the site of the prior pneumonia. There is no acute consolidation. No pulmonary effusion is seen. There is no pneumothorax. The bony thorax is intact. IMPRESSION: Scattered scarring noted throughout the lungs from prior pneumonia. Reviewed, Interpreted and Dictated by Debra Womack MD Transcribed by Lore Chinchilla Authenticated and [facility]
[2022-02-02 11:30] LABS: Basophils % 0.8 % (0.1-2.0); Eosinophils # 0.2 K/mm3 (0.0-0.4); Eosinophils % 3.4 % (0.1-12.0); Hematocrit 42.4 % (37.0-47.0); Hemoglobin 13.5 g/dL (12.2-16.2); Lymphocytes # 1.7 K/mm3 (0.7-4.5); Lymphocytes % 31.8 % (10-50); Mean Corpuscular HGB Conc 31.8 g/dL (31.8-35.4); Mean Corpuscular Hemoglobin 28.5 pg (27.0-31.2); Mean Corpuscular Volume 89.7 fl (81-99); Mean Platelet Volume 8.7 fl (7.4-10.4); Monocytes # 0.3 K/mm3 (0.1-1.0); Neutrophils # 3.1 K/mm3 (1.8-7.8); Platelet Count 274 K/mm3 (142-424); Red Blood Count 4.72 M/mm3 (4.20-5.40); Red Cell Distribution Width 13.5 % (11.5-17.5); White Blood Count 5.3 K/mm3 (4.8-10.8)
[2022-02-02 12:13] LABS: Alanine Aminotransferase 18 U/L (12-78); Albumin Level 4.6 g/dl (3.5-5.0); Albumin/Globulin Ratio 1.8 (1.1-1.8); Alkaline Phosphatase 128 U/L (38-126); Aspartate Amino Transferase 23 U/L (14-36); Bilirubin,Total 0.2 mg/dl (0.2-1.3); Blood Urea Nitrogen 12 mg/dl (7-17); Calcium 9.9 mg/dl (8.4-10.2); Carbon Dioxide 29 mmol/L (22.0-30.0); Chloride 96 mmol/L (98-107); Estimated Glomerular Filt Rate 93 ml/min (>60); GFR (African American) 112 ML/MIN (>60); Globulin 2.6 g/dL (1.3-3.2); Glucose 100 mg/dl (74-100); Sodium 140 mmol/L (136-145); Total Protein,Serum 7.2 g/dl (6.3-8.2)
[2022-02-08 23:25] LABS: 1,25 Dihydroxy Vitamin D 57 pg/mL (.); 1,25-Dihydroxy, Vitamin D-2 <10 pg/mL (.); 1,25-Dihydroxy, Vitamin D-3 57 pg/mL (.)
== END ==
PROVIDERS: PCP Nurse Practitioner Family; Visit Provider Podiatrist
DX: S86.011A Strain of right Achilles tendon, initial encounter (principal); M65.9 Synovitis and tenosynovitis, unspecified; M76.811 Anterior tibial syndrome, right leg; Z01.818 Encounter for other preprocedural examination
CPT/HCPCS: 36415; 71046; 80053; 82652; 85025; 93005

== ENCOUNTER 2022-02-11 06:06 | Day surgery (SDC) | payer OTHER, SELFPAY ==
[2022-02-09 09:57] VITALS: BMI 31.8
[2022-02-11] VITALS (13 sets, daily range): BP systolic 127–138; BP diastolic 51–82; PULSE 89–99; RESP 15–18; TEMP 36.4–43; O2SAT 96–100
--- NOTE | 2022-02-11 07:12 | P.PN_ITS ---
[facility] Disclaimer: The information contained in this section may have been updated after the patient was seen, as this information can be updated by other users. Medical History Allergies Asthma History of anemia History of COVID-19 History of gastroesophageal reflux (GERD) Migraine Pneumonia Sinus headache Surgical History H/O tubal ligation History of surgery Family History Other Diabetes Social History Smoking Status: Never smoker second hand exposure: No alcohol intake: never substance use type: denies use current occupational status: employed Travel in the last 8 weeks: None household members: family housing: house current occupation: [employer] current occupational exposures/hazards: No caffeine: Yes [facility] Anesthesia Checklist Patient Identification Patient Identification: Arm Band Structural Data Admitted From: Home Planned Operative Procedure/s: Right Ankle Arthroscopy Consent for Planned Operative Procedure(s) Verified: Yes Verified Documents: Surgical Consent and History and Physical NPO Status Verified Time NPO: 00:00 Additional verifications Anesthesia Reactions: No Hx Blood Transfusions: No Blood Transfusion Reaction: No Airway Assessment C-Spine Mobility Assessed: Yes TMJ Mobility Assessed: Yes Dentition: Good Dentition Neurological Assessment Level of Consciousness: Awake and Alert Anesthesia Plan Anesthesia Risk discussed: Yes Anesthesia Plan: Verified ASA Class: II Anesthesia Type: General w/block (Popliteal/Adductor Canal)
[2022-02-11 07:17] LABS: HCG Qualitative, Serum Negative (Negative)
--- NOTE | 2022-02-11 08:41 | SUR.OPER ---
0821-family updated at this time
--- NOTE | 2022-02-11 10:00 | XR_ITS ---
FINAL REPORT CLINICAL HISTORY: Post op ankle stab FINDINGS: Fluoroscopy guidance was provided for operating services of the right ankle. Two spot films were obtained. 0.29 seconds of fluoroscopy time was utilized. IMPRESSION: 0.29 seconds of fluoroscopy time. Reviewed, Interpreted and Dictated by Noel Sanches III, MD Transcribed by Ely Kennedy Authenticated and [facility]
--- NOTE | 2022-02-11 10:21 | XR_ITS ---
FINAL REPORT CLINICAL HISTORY: TENDON REPAIR fluoro time: .29 FINDINGS: FLUORO TIME PROCEDURE: Fluoroscopy in the operating room. FINDINGS: Fluoroscopy time was provided by the radiology department for the clinical service. Two films were obtained. Fluoroscopy exposure time: 0.29 min IMPRESSION: See above Reviewed, Interpreted and Dictated by Noel Sanches III, MD Transcribed by Lore Chinchilla Authenticated and [facility]
--- NOTE | 2022-02-11 11:06 | EXP.ANES.I ---
[facility] Anesthesia Record Part I Anesthesia Record I Intake, IV Amount: 1,300 Estimated blood loss (mL): 10 Urine output (mL): 0 Blood Pressure: 135/76 SaO2: 96 Pulse Rate: 99 Respiratory Rate: 16 Temperature: 98.5 F Patient is:: Drowsy and Stable Stable to PACU at:: 11:05
--- NOTE | 2022-02-11 11:19 | EXP.OP.NOTE ---
Date of procedure: 02/11/22 Pre-op Diagnosis:: Right ankle instability Right posterior tibial tendonitis Right peroneal tendonitis Right ankle synovitis Right deltoid ligament tear Post-op Diagnosis:: Same Procedure performed:: Right ankle/foot synovectomy Right ankle ligament repair/modified Brostrum Right ankle arthroscopy w/ extensive debridement Right posterior tibial tendon debridement w/ repair Right PTT advancement/transplant (single tendon) Right peroneal tendon repair x2, peroneal tendon anastomosis Right deltoid ligament repair Application of allograft Surgeon:: Monica Dillon DPM BALLOON MAKER:: Martín Simmons Anesthesia: GETA and regional (right pop block) Estimated blood loss (mL): 20 Clinical Note:: Patient is a 42-year-old female who sustained an ankle sprain 07/18/21. She has failed conservative care including immobilization, RICE protocol, NSAIDs, steroid pack, steroid injections, formal physical therapy. Patient is not progressing as accepted. We reviewed her imaging including x-ray and the 2 MRIs. I explained is possible that there is something else going on that the MRI is missing. Her pain in the office does not match the MRI. The Achilles pain has resolved. She reports pain is getting worse to the medial ankle. I explained at this point I expected her to be improving with a period of immobilization plus the physical therapy however she is not responding. At this point she has failed conservative care. We discussed surgery including ankle scope, debridement and repair of the posterior tibial and peroneal tendons as needed, synovectomy, possible ankle stabilization. All risks and benefits were discussed including but not limited to: damage to blood vessels and nerves, bleeding, infection, wound complications, delayed, mal or non-union of bone, post-traumatic arthritis, need for further surgery, implant failure, need for removal of implant, prolonged or permanent swelling of the extremity, prolonged or permanent pain or deformity, CRPS/RSD, DVT/PE, and anesthetic complications including . No guarantees were given. All questions fully answered. The patient verbalized understanding and agreed to proceed with surgery. Consent was obtained. PCP: Debra Gonzalez 02/03/22 for clearance. Operative findings:: Positive anterior drawer. No definitive osteochondral defect noted to the talus. There is some scuffing on the tibial plafond anteriorly consistent with an impaction ankle twisting type injury. Right ankle synovitis noted. Partial tear of the deltoid ligament. Posterior tibial tendon had a longitudinal tear inferior to the medial malleolus. Prior debridement and suture intact to the peroneal tendons x2. There was thickening noted to the peroneus longus tendon at the level of the lateral malleolus. There was a lack of peroneus brevis eversion strength with thinning and a tear at the level of the lateral malleolus. Post debridement of the nonviable tissue, the peroneus brevis was nonviable so a 2 cm section was removed and the brevis was anastomosed to the longus via a pulverweave leonor suture technique. The syndesmosis was stable. Syndesmotic hardware from prior surgery left intact. Postanastomosis the eversion strength was improved. There was negative anterior drawer post modified Brostr?m and peroneal tendon anastomosis. Operative note:: On this date and time, the patient was deemed an appropriate surgical candidate. With informed consent signed, the patient was taken to the operating theater after a pre-op regional popliteal nerve block was given by anesthesia. The patient was positioned supine. General anesthesia induced. Tourniquet applied to right thigh @250mmHg. The lower extremity was prepped and draped in normal sterile fashion. The tourniquet was inflated at 250 mmHg.? Right ankle arthroscopy: Attention was directed to the ankle where anatomic structures were mapped out. Attention given to the ankle where saline was used to distend the joint.
--- NOTE | 2022-02-11 11:19 | SUR.PHASEI ---
1114 radiology at bedside
--- NOTE | 2022-02-11 11:35 | SUR.PHASEI ---
1130 called and gave detailed report to Benjamin Liu RN [id number] transported via stretcher to post op. vital signs stable. denies pain at this time. left in stable condition with Benjamin Liu RN at bedside
--- NOTE | 2022-02-11 11:38 | SUR.PHASEII ---
family states they have a polar pack and crutches at home and does not need new.
--- NOTE | 2022-02-12 07:31 | P.PNANES_ITS ---
[facility] Anesthesia Record Part II Anesthesia Record Part II Discharge Time: 11:35 Destination: Surgical Day Care (OP Surgery) PACU nurse assessment reviewed?: Yes Patient Condition:: Good Anesthesia Complications:: None Swallowing reflex intact?: Yes Cyanosis?: No Blood Pressure: 134/68 Pulse Rate: 97 Temperature: 98.2 F Mental Status: Alert & Oriented Pain level:: 0 Nausea and/or vomitting:: None Intake, IV Amount: 0
[2022-02-12 07:32] VITALS: BP 134/68; PULSE 97; TEMP 36.8
== END 2022-02-11 12:34 | disposition home or self-care (01) ==
PROVIDERS: PCP Nurse Practitioner Family; Visit Provider Podiatrist
PROC: (CPT 27626; principal; 2022-02-11 07:30)
DX: S86.011A Strain of right Achilles tendon, initial encounter (principal); M25.371 Other instability, right ankle; M76.821 Posterior tibial tendinitis, right leg; M65.871 Other synovitis and tenosynovitis, right ankle and foot; S86.111A Strain of other muscle(s) and tendon(s) of posterior muscle group at lower leg level, right leg, initial encounter; W01.0XXA Fall on same level from slipping, tripping and stumbling without subsequent striking against object, initial encounter; Y93.F9 Activity, other caregiving; Y92.89 Other specified places as the place of occurrence of the external cause
CPT/HCPCS: 27626; 27696; 29898; 27658; 15275; 73600; 73610; 84703; 96374; C1713; C1762; J2405; Q4211

== ENCOUNTER → 2022-04-30 08:46 | Outpatient (CLI) | payer OTHER, SELFPAY ==
--- NOTE | 2022-04-30 08:54 | XR_ITS ---
FINAL REPORT CLINICAL HISTORY: LEFT SIDE LOW BACK PAIN FINDINGS: 5 views of the lumbar spine were obtained. There is no evidence of fracture or dislocation. The vertebral alignment is normal. There are mild degenerative changes with small osteophytes. No paraspinous soft tissue abnormalities identified. IMPRESSION: No acute bony abnormality. Reviewed, Interpreted and Dictated by Noel Sanches III, MD Transcribed by Teresa Warren Authenticated and . [facility]
== END ==
PROVIDERS: PCP Nurse Practitioner Family; Visit Provider Nurse Practitioner Family
DX: M54.42 Lumbago with sciatica, left side (principal)
CPT/HCPCS: 72110

== ENCOUNTER 2022-06-11 17:30 | Outpatient (RCR) | payer OTHER, SELFPAY | END 2022-06-11 17:35 | disposition home or self-care (01) | LOC: PT 17:30 | PROVIDERS: PCP Nurse Practitioner Family; Visit Provider Nurse Practitioner Family | DX: M54.42 Lumbago with sciatica, left side (principal) | CPT/HCPCS: 97010; 97012; 97014; 97110; 97163; 97164; 97530; G0283 ==

== ENCOUNTER 2022-07-15 17:30 | Outpatient (RCR) | payer SELFPAY ==
--- NOTE | 2022-03-30 16:52 | HMH.PTOPEV ---
PT Outpatient Evaluation Rehab PT Outpatient Evaluation Start: 03/30/22 15:54 Freq: Status: Active Protocol: Document 03/30/22 15:54 VICKI (Rec: 03/30/22 16:52 VICKI [id number]) E-signed By Olesya Liu, PT Outpatient Therapy Subjective History Subjective History Pt is a 42 y/o female that reports to PT 6.5 weeks s/p R ankle stabilization surgery. Per MD note, surgical procedures involved right ankle/foot synovectomy, ankle ligament repair/modified Brostrum, ankle arthroscopy w/ extensive debridement, posterior tibial tendon debridement w/ repair, peroneal tendon repair x2, peroneal tendon anastomosis, deltoid ligament repair, application of allograft. Pt denies post-operative complications and reports pain has greatly improved compared to before surgery. Pt reports she only has pain with prolonged walking on the medial side of the ankle. Pt reports constant swelling and intermittent pin/needles of the medial ankle as well. Pt reports she started PPWB in fx boot without crutches 2 days ago per approval by MD at last followup session and is doing well with this. Pt reports the MD wants her to be FWB in tennis shoe/brace by 04/08/22 if tolerated. Pt reports 1 fall about a week after surgery due to slipping on crutches but denies further injury due to this. Pt denies having imaging since the surgery. Pt also has history of previous right ankle/foot surgery in 2019 with complicated healing process. Pt saw this PT prior to most recent surgery without improvements with conservative care.
--- NOTE | 2022-04-28 10:14 | HMH.RHREAS ---
Rehab Reassessment Rehab OP Re-assessment Start: 04/28/22 09:54 Freq: Status: Active Protocol: Document 04/28/22 09:54 VICKI (Rec: 04/28/22 10:13 VICKI [id number]) E-signed By Olesya Liu PT Rehab Re-assessment Subjective Subjective Pt reports her ankle feels a lot better after this surgery compared to before. Pt reports pain at worst as 2-3/10 of the lateral ankle. Pt also reports intermittent bouts of medial paresthesia described as stinging with weight bearing activities. Pt reports she had a recent followup appointment with Dr. Dillon who stated she could return to work in person Wed, Wed, Fridays starting 04/27/22 with restrictions and rest breaks as needed. Pt reports Wednesday was her first day back and she had some ankle soreness and required a couple rest breaks but otherwise tolerated it well. Objective Objective Notes R Ankle AROM: DF 8, PF 35, Inv 12, Ev 12 R Ankle MMT: 4/5 grossly with exception of eversion 3+/5 Gait: antalgic gait with decreased WB on RLE and decreased heel strike/push off Mild TTP of lateral ankle Assessment Progress Assessment Progressing as Expected Assessment Notes Pt has attended 3 PT visits consisting of aerobic exercise , ankle AROM, LE stretching/ strengthening, gait training, balance/proprioception training, manual therapy and modalities with good tolerance . Pt demonstrated improved ankle AROM in all planes and improved MMT this date compared to initial evaluation . Pt's progress however has been limited because of delayed start after evaluation due to insurance issues. Pt would
--- NOTE | 2022-05-27 17:37 | HMH.RHREAS ---
Rehab Reassessment Rehab OP Re-assessment Start: 04/28/22 09:54 Freq: Status: Active Protocol: Document 05/27/22 17:08 VICKI (Rec: 05/27/22 17:37 VICKI [id number]) E-signed By Olesya Liu PT Rehab Re-assessment Subjective Subjective Pt reports she feels 75% improved since starting PT. Pt reports pain at worst as 5/10 which occurs when her low back hurts. Pt denies paresthesia or falls. 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 Pt reports she has to use a step to pattern while negotiating stairs at home. Pt also reports she has to take a bath because if she stands in the shower for ~10 minutes her foot turns blue and starts to hurt. Pt denies paresthesia or falls . Pt reports she is using a step to pattern and a hand rail to navigate stairs at home and has some pain with this. 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 Pt reports her foot turns blue when standing for a shower ~10 minutes and thats when it starts hurting. Objective Objective Notes R Ankle AROM: DF 10, PF 37, Inv 15, Ev 12 R Ankle MMT: 4+/5 grossly with exception of eversion 4/5 Gait: antalgic gait with decreased WB on RLE and decreased heel strike/push off Girth: 52.5 cm Assessment Progress Assessment Progressing as Expected Assessment Notes Pt has attended 9 PT visits consisting of aerobic exercise , LE stretching/strengt
--- NOTE | 2022-06-23 15:12 | HMH.RHREAS ---
Rehab Reassessment Rehab OP Re-assessment Start: 04/28/22 09:54 Freq: Status: Active Protocol: Document 06/23/22 14:59 [email or web address] (Rec: 06/23/22 15:12 VICKI [id number]) E-signed By Olesya Liu PT Rehab Re-assessment Subjective Subjective Pt reports her ankle continues to feel better and improve overall. Pt reports pain at worst as 4-5/10 with prolonged WB activities. Pt also reports intermittent stinging sensation of the medial ankle. Pt reports when negotiating stairs she is cautious and uses a step to pattern. 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 Pt states she returns to her MD in about a month or so. Objective Objective Notes R ankle AROM: DF 10, PF 37, Inv 25, Eversion 12 R ankle MMT: 5/5 in open chain with exception of eversion 4+ /5 Gait: antaglic gait with dec WB R and dec heel strike Assessment Progress Assessment Progressing as Expected Assessment Notes Pt has attended 14 PT sessions consisting of aerobic exercise, ankle AROM/ strengthening/stretching, balance/proprioception & gait training, manual therapy and modalities with good tolerance . Pt demonstrated improved ankle strength and inversion AROM this date compared to last reassessment. Pt continues to demonstrate antalgic gait and reports increased pain with activities during PT sessions. Pt would continue to benefit from
== END 2022-07-15 17:35 | disposition home or self-care (01) ==
LOC: PT 17:30
PROVIDERS: PCP Nurse Practitioner Family; Visit Provider Podiatrist
DX: M76.61 Achilles tendinitis, right leg (principal)
CPT/HCPCS: 97010; 97014; 97035; 97110; 97112; 97140; 97163; 97164; 97530; G0283

== ENCOUNTER → 2022-11-12 10:14 | Outpatient (CLI) | payer OTHER, SELFPAY ==
--- NOTE | 2022-11-12 10:23 | XR_ITS ---
FINAL REPORT CLINICAL HISTORY: Rt ankle pain, recent fall, last sx on ankle was Feb COMPARISON: None FINDINGS: LEFT ANKLE: Three views of the left ankle were obtained. There are postoperative changes in the distal tibia and fibula and in the tarsal navicular. There is no acute fracture or dislocation. The joint spaces and mortise are intact. There is no soft tissue abnormality. IMPRESSION: No acute bony abnormality. Postoperative changes in the distal tibia and fibula and in the navicular. Reviewed, Interpreted and Dictated by Noel Sanches III, MD Transcribed by Anna Grant Authenticated and [facility]
== END ==
PROVIDERS: PCP Nurse Practitioner Family; Visit Provider Orthopaedic Surgery
DX: M25.571 Pain in right ankle and joints of right foot (principal); S99.911A Unspecified injury of right ankle, initial encounter
CPT/HCPCS: 73610

== ENCOUNTER → 2022-11-30 14:44 | Outpatient (CLI) | payer OTHER, SELFPAY ==
--- NOTE | 2022-11-30 14:45 | MR_ITS ---
FINAL REPORT CLINICAL HISTORY: Rt ankle pain. PRIOR HX 2 ANKLE SURGERIES. LAST SURGERY IN 2021. ENTIRE ANKLE PAIN SINCE FALL. SWELLING IN ANKLE COMPARISON: 12/31/2021 FINDINGS: Multiplanar and multisequence imaging of the right ankle was obtained without intravenous contrast. BONES/JOINT: Bone marrow signal intensity is normal. There is no edema, contusion or pathologic marrow replacement. There are postoperative changes of ORIF distal tibia and fibula, the hardware appears similar to the prior examination. LIGAMENTS: The anterior talofibular ligament, posterior talofibular ligament and calcaneofibular ligament are intact. The tibiofibular ligaments are intact. The deltoid and spring ligaments are within normal limits. TENDONS: The Achilles tendon is normal in size and signal intensity. The posterior tibial tendon is enlarged without a definite tear seen, with less surrounding fluid than the prior exam. There has been interval development of peroneal tendinosis, particularly the peroneus longus tendon. No definite tear is identified. The extensor tendons are within normal limits. OTHER SOFT TISSUES: Soft tissue swelling both medial and lateral is once again identified. There is no joint effusion. Signal intensity within the sinus tarsi is preserved. The plantar fascia is normal in size and signal intensity. There are no additional areas of abnormal signal intensity. There are no masses or abnormal fluid collections. IMPRESSION: There has been interval development of peroneal tendinosis, particularly involving the peroneus longus tendon. No tear is seen. The posterior tibial tendon is enlarged without a tear, with less surrounding fluid than seen on the prior MR. Reviewed, Interpreted and Dictated by Emi Chapman MD Transcribed by Anna Grant Authenticated and [facility]
== END ==
PROVIDERS: PCP Nurse Practitioner Family; Visit Provider Orthopaedic Surgery
DX: M25.571 Pain in right ankle and joints of right foot (principal); S86.111A Strain of other muscle(s) and tendon(s) of posterior muscle group at lower leg level, right leg, initial encounter
CPT/HCPCS: 73721

== ENCOUNTER 2023-01-15 17:00 | Outpatient (RCR) | payer OTHER, SELFPAY | END 2023-01-15 18:10 | disposition home or self-care (01) | LOC: PT 17:00 | PROVIDERS: Visit Provider Orthopaedic Surgery | DX: S86.311A Strain of muscle(s) and tendon(s) of peroneal muscle group at lower leg level, right leg, initial encounter (principal); S93.401A Sprain of unspecified ligament of right ankle, initial encounter | CPT/HCPCS: 97010; 97014; 97033; 97035; 97110; 97163; 97530; G0283 ==

== ENCOUNTER 2023-04-27 11:12 | Emergency (ER) | payer OTHER, SELFPAY ==
--- NOTE | 2023-04-27 11:41 | EXP.UTC ---
Discharge Plan Disposition Patient Disposition: Home, Self-Care Condition: Good Prescriptions Prescriptions: New azithromycin [Zithromax] 250 mg tablet 250 mg PO UD DOSE PK Qty: 6 0RF Rx Instructions: Take two (2) tablets today, then one (1) tablet days #2 thru #5 benzonatate [benzonatate] 100 mg capsule 100 mg PO TIDP PRN (Reason: Cough) Qty: 30 0RF methylprednisolone 4 mg Tablets,Dose Pack 4 mg PO DIRECTED 6 Days Qty: 21 0RF Rx Instructions: Take 1 pack as directed for 6 days No Action fluticasone propionate 50 mcg/actuation spray,suspension 1 spray INTRANASAL DAILY 30 Days Qty: 16 Patient Comments: instill 2 sprays into each nostril once daily Qvar RediHaler 40 mcg/actuation HFA aerosol breath activated 2 inh inhalation BID epinephrine 0.3 mg/0.3 mL auto-injector 0.3 ml IM NEEDED PRN (Reason: Allergic Reaction) Qty: 2 oxcarbazepine 300 mg tablet 300 mg PO DAILY Qty: 60 ketotifen fumarate 0.025 % (0.035 %) drops 1 drp OPHTHALMIC DAILY Qty: 5 amitriptyline 25 mg tablet 25 mg PO DAILY cetirizine 10 mg tablet 10 mg PO DAILY Patient Comments: TAKE 1 TABLET BY MOUTH EVERY DAY triamcinolone acetonide 0.1 % cream 1 applic topical DAILY Patient Comments: APPLY 2 A SMALL AMOUNT TO AFFECTED AREA TWICE A DAY NEEDED AVOID USE ON FACE, ARMPITS, AND GROIN. sumatriptan succinate 100 mg tablet 100 mg PO ONCE ibuprofen 800 mg tablet 800 mg PO BID Qty: 60 3RF montelukast 10 MG tablet 10 mg PO PM albuterol sulfate 108 HFA aerosol inhaler 2 puffs PO DIRECTED omeprazole 20 mg Tablet,Delayed Release (Dr/Ec) 20 mg PO DAILY Referrals Follow up/Referrals: Radha Gonzalez APRN [Primary Care Provider] - See instructions Activity Restrictions/Add. Instructions Additional Instructions/Restrictions: Drink plenty of fluids. Take tylenol or ibuprofen for pain or fever. Take the medications as directed. Follow up with your regular doctor. GO TO THE ER FOR ANY WORSENING SYMPTOMS Clinical Impressions Clinical Impression: Acute bronchitis, Acute sinusitis Stand Alone Forms Stand Alone Forms: Work/School Release Instructions Patient Instructions: Sinusitis, DI for Sinusitis Discharge ED Provider: Austyn Mills [facility] HPI General Stated complaint: chest tightness, sneezing, runny nose Time Seen by Provider: 04/27/23 11:41 Related Data Home Medications Medication Instructions Recorded Confirmed albuterol sulfate 90 mcg/actuation 2 puffs PO DIRECTED Asthma 04/17/18 12/03/22 aerosol inhaler montelukast 10 mg tablet 10 mg PO PM Asthma 04/17/18 12/03/22 fluticasone propionate 50 1 spray intranasal DAILY ALLERGIES 06/15/18 12/03/22 mcg/actuation nasal 30 days #16 grams spray,suspension epinephrine 0.3 mg/0.3 mL 0.3 ml IM NEEDED PRN Allergic 07/30/18 12/03/22 injection, auto-injector Reaction #2 ea ketotifen fumarate 0.025 % (0.035 1 drp ophthalmic (eye) DAILY 07/30/18 12/03/22 %) eye drops allergies #5 mL oxcarbazepine 300 mg tablet 300 mg PO DAILY trigeminal nerve 07/30/18 12/03/22 damage #60 tabs amitriptyline 25 mg tablet 25 mg PO DAILY . 05/23/19 12/03/22 cetirizine 10 mg tablet 10 mg PO DAILY allergies 08/11/21 12/03/22 omeprazole 20 mg tablet,delayed 20 mg PO DAILY GERD 02/11/22 12/03/22 release sumatriptan succinate 100 mg tablet 100 mg PO ONCE 02/19/22 12/03/22 triamcinolone acetonide 0.1 % 1 applic topical DAILY . 04/23/22 12/03/22 topical cream beclomethasone dipropionate 40 2 inh inhalation BID 07/30/22 12/03/22 mcg/actuation HFA breath activated aerosol (Qvar RediHaler) Previous Rx's Medication Instructions Recorded ibuprofen 800 mg tablet 800 mg PO BID pain, mild #60 tabs 02/16/23 azithromycin 250 mg tablet 250 mg PO UD DOSE PK #6 tabs 04/27/23 (Zithromax) benzonatate 100 mg capsule 100 mg PO TIDP PRN Cough #30 caps 04/27/23 methylprednisolone 4 mg tablets in 4 mg PO DIRECTED 6 days #21 tabs 04/27/23 a dose pack Allergies Allergy/AdvReac Type Severity Reaction Status Date / Time No Known Allergies Allergy Verified 04/27/23 12:15 [facility] Disclaimer: The information contained in this section may have been updated after the patient was seen, as this information can be updated by other users. Medical History Allergies Asthma History of anemia History of COVID-19 History of gastroesophageal reflux (GERD) Migraine Pneumonia Sinus headache Surgical History H/O tubal ligation History of surgery RIGHT ANKLE Family History Other Diabetes Social History Smoking Status: Never smoker second hand exposure: No alcohol intake: never substance use type: denies use current occupational status: employed Travel in the last 8 weeks: None household members: family housing: house current occupation: [employer] [place] current occupational exposures/hazards: No caffeine: Yes ROS Obtained: Yes All systems reviewed & no additional complaints except as documented Constitutional Constitutional: Reports poor appetite Eyes Eyes: Reports system reviewed and no additional complaints, except as documented ENT Ears, Nose, Mouth, and Throat: Reports as per HPI Cardiovascular Cardiovascular: Reports system reviewed and no additional complaints, except as documented and Denies chest pain Respiratory Respiratory: Denies shortness of breath, Reports chest congestion, Reports cough, Denies stridor and Denies wheezing Gastrointestinal Gastrointestingal: Reports system reviewed and no additional complaints, except as documented; Denies abdominal pain, diarrhea or vomiting Musculoskeletal Musculoskeletal: Reports system reviewed and no additional complaints, except as documented and Denies arthralgias Integumentary/Breasts Skin/Breast: Reports system reviewed and no additional complaints, except as documented and Denies rash Neurologic Neurologic: Denies paresthesias Allergic/Immunologic Allergic/Immunologic: Denies wheezing Physical Exam General General appearance: alert and in no apparent distress Eye Eye exam: Present normal appearance, PERRL and EOMI ENT ENT exam: Present mucous membranes moist and normal external ear exam Expanded ENT Exam External ear exam: Present normal external inspection TM/Canal exam: Bilateral TM: erythema and bulging Nose exam: Absent sinus tenderness Nasal speculum exam: Bilateral: normal Mouth exam: Present normal external inspection; Absent drooling Teeth exam: Present normal inspection Throat exam: Present tonsillar erythema and tonsillomegaly Neck Neck exam: Present normal inspection, full ROM and trachea midline; Absent tenderness, lymphadenopathy or thyromegaly Chest Chest inspection: Present normal inspection and symmetric chest wall rise; Absent tenderness or rash Respiratory Respiratory exam: Present normal lung sounds bilaterally; Absent respiratory distress, wheezes, stridor or accessory muscle use Cardiovascular Cardiovascular exam: Present regular rate, normal rhythm and normal heart sounds Abdominal Exam Abdominal exam: Present soft; Absent distention, tenderness, guarding, rebound or rigidity Extremities Exam Extremities exam: Present normal inspection, full ROM and normal capillary refill; Absent tenderness or calf tenderness Back Exam Back exam: Present normal inspection and full ROM; Absent tenderness Neurological Exam Neurological exam: Present alert and oriented X3 Psychiatric Psychiatric exam: Present normal affect and normal mood Skin Skin exam: Present warm, dry, intact and normal color Lymphatic Lymphatic Findings: no adenopathy Medical Decision Making Medical Records Medical records reviewed: No I reviewed the patient's medical records. Eron Inquiry Pt receiving controlled substance: No Lab Data Lab results reviewed: Yes I reviewed the patient's lab results.
[2023-04-27 11:50] VITALS: BP 136/64; PULSE 106; RESP 16; TEMP 36.9; O2SAT 100; BMI 32.8
[2023-04-27 12:16] LABS: UTC Strep Screen (Rapid) Negative (Negative)
[2023-04-27 12:17] VITALS: BP 136/64; PULSE 106; RESP 16; TEMP 36.9; O2SAT 100
[2023-04-27 12:17] LABS: UTC Influenza A Antigen Negative (Negative); UTC Influenza B Antigen Negative (Negative)
== END 2023-04-27 12:17 | disposition home or self-care (01) ==
PROVIDERS: Emergency Provider Nurse Practitioner Family; PCP Nurse Practitioner Family
DX: J20.9 Acute bronchitis, unspecified (principal); J01.90 Acute sinusitis, unspecified; R09.81 Nasal congestion
CPT/HCPCS: 87804; 87880; 99204; 99212; G0463

== ENCOUNTER 2023-12-23 15:00 | Outpatient (CLI) | payer OTHER, SELFPAY ==
--- NOTE | 2023-12-23 15:07 | XR_ITS ---
PROCEDURE INFORMATION: Exam: XR Cervical Spine Exam date and time: 12/23/2023 3:24 PM Age: 43 years old Clinical indication: Neck pain; Additional info: Cervical neck pain, injury TECHNIQUE: Imaging protocol: Radiologic exam of the cervical spine. Views: 2 or 3 views. COMPARISON: CR XR HUMERUS RT 12/23/2023 3:24 PM FINDINGS: Bones/joints: Normal. No acute fracture. Normal alignment. Soft tissues: Unremarkable. IMPRESSION: No acute findings.
--- NOTE | 2023-12-23 15:07 | XR_ITS ---
PROCEDURE INFORMATION: Exam: XR Right Scapula Exam date and time: 12/23/2023 3:24 PM Age: 43 years old Clinical indication: Pain; Shoulder; Right; Additional info: Right scapula pain, injury TECHNIQUE: Imaging protocol: Radiologic exam of the right scapula. Complete exam. COMPARISON: CR XR HUMERUS RT 12/23/2023 3:24 PM FINDINGS: Bones/joints: Normal. No fracture identified. No significant degenerative changes appreciated. Soft tissues: Normal. IMPRESSION: No acute findings.
--- NOTE | 2023-12-23 15:07 | XR_ITS ---
PROCEDURE INFORMATION: Exam: XR Right Humerus Exam date and time: 12/23/2023 3:24 PM Age: 43 years old Clinical indication: Injury or trauma; Fall; Blunt trauma (contusions or hematomas); Arm, upper; Right; Additional info: Injury to right arm TECHNIQUE: Imaging protocol: Radiologic exam of the right humerus. Views: 2 or more views. COMPARISON: CR XR SCAPULA RT 12/23/2023 3:24 PM FINDINGS: Bones/joints: Normal. No fracture or destructive bone lesion. Normal alignment of the shoulder and elbow. Soft tissues: Normal. IMPRESSION: No acute findings.
--- NOTE | 2023-12-23 15:07 | XR_ITS ---
PROCEDURE INFORMATION: Exam: XR Right Shoulder Exam date and time: 12/23/2023 3:24 PM Age: 43 years old Clinical indication: Pain; Shoulder; Right; Additional info: Right shoulder pain, injury TECHNIQUE: Imaging protocol: Radiologic exam of the right shoulder. Views: 2 or more views. COMPARISON: CR XR HUMERUS RT 12/23/2023 3:24 PM FINDINGS: Bones/joints: Normal. No fracture or destructive bone lesion. Soft tissues: Normal. IMPRESSION: No acute findings.
--- NOTE | 2023-12-23 15:07 | XR_ITS ---
PROCEDURE INFORMATION: Exam: XR Thoracic Spine Exam date and time: 12/23/2023 3:24 PM Age: 43 years old Clinical indication: Pain in thoracic spine; Additional info: Thoracic spine pain, injury TECHNIQUE: Imaging protocol: Radiologic exam of the thoracic spine. Views: 2 views. COMPARISON: CR XR CERVICAL SPINE 2V 12/23/2023 3:24 PM FINDINGS: Bones/joints: There is normal anatomic alignment of the thoracic spine. No evidence of a fracture or destructive bone lesion. There are mild chronic degenerative changes in the upper thoracic spine. Soft tissues: Unremarkable. Lungs: The visualized lung johnston are unremarkable. Heart/Mediastinum: The heart is normal in size. IMPRESSION: Mild chronic degenerative changes in the upper thoracic spine, otherwise normal study.
== END 2023-12-23 23:59 | disposition home or self-care (01) ==
PROVIDERS: PCP Nurse Practitioner Family; Visit Provider Nurse Practitioner Family
DX: M25.511 Pain in right shoulder (principal); M54.2 Cervicalgia; M89.8X1 Other specified disorders of bone, shoulder; M54.6 Pain in thoracic spine; M89.8X2 Other specified disorders of bone, upper arm
CPT/HCPCS: 72040; 72070; 73010; 73030; 73060

== ENCOUNTER 2024-02-08 17:00 | Outpatient (RCR) | payer OTHER, SELFPAY ==
--- NOTE | 2024-01-07 08:13 | HMH.PTOPEV ---
PT Outpatient Evaluation Rehab PT Outpatient Evaluation Start: 01/07/24 07:41 Freq: Status: Active Protocol: Document 01/06/24 15:59 ALEXANDREA (Rec: 01/07/24 08:13 ALEXANDREA [id number]) E-signed By Israel Clement, PT Outpatient Therapy Subjective History Subjective History Patient is a 43 year old female presenting to outpatient PT with reports of acute cervical/UT/R shoulder/ interscapular pain. Symptom onset approx 3 weeks ago. Symptoms started after a TV fell on her. Most recent imaging indicates mild thoracic degenerative changes. Other comorbidities include hx of L ankle ORIF. New diagnosis of cancer in past 12 No months? Chief Complaint Pain,Stiff Symptom Type Stabbing,Burning Symptoms Relieved By Rest/Positioning,Heat,OTC Meds Symptoms Aggravated By Standing,Physical Activity, Lifting Prior Functional Limitations None Current Functional Limitations Reaching,Lifting,Housework, Driving,Sleeping Symptom Description Constant but Variable Level of pain today (0-10) 3 Pain scale - at its best (0-10) 3 Pain scale - at its worst (0-10) 8 Cervical Eval Palpation Cervical Muscles R Upper Trapezius Cervical/Thoracic Palpation Findings Tenderness Posture Head/C-Spine Posture Sitting Position C-Spine Flattened Head/C-Spine Posture Standing Position C-Spine Flattened Flexibility Deficits Upper Trapezius Muscle Length (R) Moderate Tightness Levaetor Scapulae Muscle Length (R) Moderate Tightness Scalene Group Muscle Length (R) Moderate Tightness Pectoralis Minor Muscle Length (R) Moderate Tightness Passive Joint Mobility Cervical PIVM WNL: R OA L OA R AA L AA R C2/3 L C2/3 R C3/4 L C3/4 R C4/5 L C4/5 R C5/6 L C5/6 R C6/7 L C6/7 R C7/T1 L C7/T1 AROM Cervical Spine Extension Active Range of 34 Motion (degrees) Cervical Spine Flexion Active Range of 45 Motion (degrees) Cervical Spine Right Lateral Flexion 18 Active Range of Motion (degrees) Cervical Spine Left Lateral Flexion 30 Active Range of Motion (degrees) Cervical Spine Right Rotation Active 47 Range of Motion (degrees) Cervical Spine Left Rotation Active 42 Range of Motion (degrees) MMT Right Deltoid (C5) 4- Good- Biceps Brachii Strength Grade 4- Good- Wrist Extension Strength Grade 5 Normal Triceps Brachii Strength Grade 4 Good Wrist Flexion Strength Grade 4 Good Extensor Pollicis Longus Strength Grade 4 Good Finger Abduction Strength Grade 4 Good Special Test C-Spine Foraminal Compression (Spurling) Negative Left,Negative Right Test C-Spine Foraminal Distraction Test Negative Shoulder/Elbow Eval Shoulder Objective Measurements Shoulder ROM Right Shoulder Abduction Active Range of 84 Motion (degrees) Shoulder Flexion Active Range of Motion 91 (degrees) Query Text: Shoulder External Rotation Active Range WNL of Motion (degrees) Shoulder Internal Rotation Active Range WNL of Motion (degrees) pain with passive ROM shoulder exam right standard Shoulder MMT Shoulder External Rotation Strength 4- Good- Grade Shoulder Internal Rotation Strength 4 Good Grade Elbow Objective Measurements Neck Disability Index Neck Disability Index Section 1: Pain Intensity The pain is very mild at moment Section 2: Personal Care (washing, I can look after myself dressing, etc.) normally but it causes extra pain Section 3: Lifting I can only lift very light weights Section 4: Reading I can read as much as I want to with no pain in my neck Section 5: Headaches I have moderate headaches, which come frequently Section 6: Concentration I can concentrate fully when I want to with slight difficulty Section 7: Work I can only do my usual work, but no more Section 8: Driving I can drive my car as long as I want with moderate pain in my neck Section 9: Sleeping My sleep is moderately disturbed (2-3 hrs. 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 Number of Weeks 4-6 Decreased Palpation Tenderness Yes: 1/4 Increase Range of Motion Yes: CROM/GHJ ROM WNL Increase Strength Yes: GHJ 5/5 Restore Ability to Lift Objects to Yes: 10 lb without difficulty Shoulder Level Restore Ability to Lift Objects Overhead Yes: Improve Ability For Household Care Yes Improve Tolerance to Work Activities Yes Decrease Subjective C/O Pain Yes: 2/10 at worst Outpatient Therapy Plan of Care Treatment Plan May Include Therapeutic Exercise Including Home Yes Exercise Program Manual Therapy Techniques Yes Neuromuscular Re-education Yes Therapeutic Activities to Return to Yes Previous Functional/Work Level ADL/Self Care Education Yes Mechanical Traction Yes Dry Needling Yes Thermal Modalities Yes Electrical Stimulation Yes Ultrasound/Phonophoresis Yes Iontophoresis Yes Massage Yes Eval/Re-Eval Yes Frequency Times per week 2-3 Duration Number of Weeks 4-6 Addendums This patient is a candidate for social No or vocational rehab? Patient/Guardian verbally acknowledges Yes understanding of treatment program and consents to further treatment? Patient/Guardian verbally acknowledges Yes understanding of diagnosis, prognosis and goals for treatment? Eval Complexity PT Charges 43721 - Moderate Complexity PHYSICIAN CERTIFICATION: I certify the specified therapy services for Winifred Sanders are required, authorized, and reviewed every 30 days.
== END 2024-02-08 23:59 | disposition home or self-care (01) ==
LOC: PT 17:00
PROVIDERS: Visit Provider Nurse Practitioner Family
DX: M54.2 Cervicalgia (principal); M54.6 Pain in thoracic spine; M25.511 Pain in right shoulder
CPT/HCPCS: 97014; 97035; 97110; 97140; 97163; G0283

== ENCOUNTER 2024-03-06 12:52 | Emergency (ER) | payer OTHER, SELFPAY ==
[2024-03-06 14:10] VITALS: BP 122/72; PULSE 92; RESP 19; TEMP 36.6; O2SAT 100; BMI 33.1
[2024-03-06 14:27] LABS: Apearance,Urine Clear (Clear); Bilirubin,Urine Negative (Negative); Blood, Urine Negative (Negative); Color,Urine Dark Yellow (Yellow); Glucose,Urine (UA) Negative (Negative); Ketones,Urine Negative (Negative); PH,Urine 6.5 (5.0-8.5); Protein,Urine Negative (Negative); Specific Gravity, Urine 1.015 (1.005-1.030); UTC Leukocyte Esterase,Urine 1+ (Negative); UTC Nitrate,Urine Negative (Negative); Urobilinogen,Urine 0.2 EU/dl (0.2)
--- NOTE | 2024-03-06 14:35 | ED_ITS ---
Discharge Plan Disposition Patient Disposition: Home, Self-Care Condition: Good Prescriptions Prescriptions: No Action epinephrine 0.3 mg/0.3 mL auto-injector 0.3 ml IM NEEDED PRN (Reason: Allergic Reaction) Qty: 2 levocetirizine 5 mg tablet 5 mg PO ONCE Patient Comments: TAKE 1 TABLET BY MOUTH EVERY DAY Nurtec ODT 75 mg tablet,disintegrating 75 mg PO Q OTHER DAY PRN (Reason: Migraine) Qty: 8 3RF amitriptyline 25 mg tablet 50 mg PO QHS oxcarbazepine 300 mg tablet 300 mg PO BID Qty: 90 3RF Rx Instructions: Take 1 tablet in the morning and 2 tablets at night Qvar RediHaler 80 mcg/actuation HFA aerosol breath activated 1 inh inhalation BID azelastine 137 mcg (0.1 %) spray,non-aerosol 2 spray intranasal BID Patient Comments: SPRAY 1-2 SPRAY INTO BOTH NOSTRILS TWICE A DAY montelukast 10 MG tablet 10 mg PO PM albuterol sulfate 108 HFA aerosol inhaler 2 puffs PO DIRECTED Referrals Follow up/Referrals: Radha Gonzalez APRN [Primary Care Provider] - See instructions Activity Restrictions/Add. Instructions Additional Instructions/Restrictions: Call your family doctor to establish care for this visit to the emergency department and schedule follow-up within 48 hours to ensure improvement. If you have any worsening of your condition or any other concerning signs or symptoms, return to the emergency department or your primary care doctor for further evaluation. Take Tylenol 1000 mg every 6 hours (4 times daily) and ibuprofen 400 mg every 6 hours (4 times daily) as needed with food and water to prevent GI upset and kidney damage. Clinical Impressions Clinical Impression: Left lower quadrant abdominal pain Stand Alone Forms Stand Alone Forms: Work/School Release Instructions Patient Instructions: DI for Acute Abdominal Pain Print Language Print Language: Nam[place]ian Discharge ED Provider: Aime Hoffman [facility] General Chief complaint: Abdominal Pain Stated complaint: Pain Lower L abd Mode of Arrival: Ambulatory Source of Information: Patient Limitations: No Limitations Time Seen by Provider: 03/06/24 14:35 Description of Symptoms (Recalled from Triage Doc. by RN): PATIENT C/O PAIN TO LLQ/SIDE X 5 DAYS HEENT Symptoms (Recalled from RN notes): No Resp Symptoms (Recalled from RN notes): No Skin Symptoms (Recalled from RN notes): No MS Symptoms (Recalled from RN notes): No Functional Status (Recalled from RN notes): WNL History of Present Illness Provider Complaint: Patient states that she woke on morning having pain in her left lower quad States that the pain has continued to get progressively worse and has remained in her left lower quad States that pain is constant but at times she has a stabbing like sensation and it makes it nauseous, Denies fever, denies trouble urinating, denies hx of stones or ovarian cysts States today it was bothering her worse so she came in Reports last menstrual period was in the middle of the month, last BM yesterday and normal Related Data Home Medications ?Medication ?Instructions ?Recorded ?Confirmed albuterol sulfate 90 mcg/actuation 2 puffs PO DIRECTED Asthma 04/17/18 03/06/24 aerosol inhaler montelukast 10 mg tablet 10 mg PO PM Asthma 04/17/18 03/06/24 epinephrine 0.3 mg/0.3 mL 0.3 ml IM NEEDED PRN Allergic 07/30/18 03/06/24 injection, auto-injector Reaction #2 ea azelastine 137 mcg (0.1 %) nasal 2 spray intranasal BID 12/23/23 03/06/24 spray beclomethasone dipropionate 80 1 inh inhalation BID 12/23/23 03/06/24 mcg/actuation HFA breath activated aerosol (Qvar RediHaler) amitriptyline 25 mg tablet 50 mg PO QHS .migraine 02/15/24 03/06/24 levocetirizine 5 mg tablet 5 mg PO ONCE 02/15/24 03/06/24 Previous Rx's ?Medication ?Instructions ?Recorded oxcarbazepine 300 mg tablet 300 mg PO BID trigeminal neuralgia 02/15/24 #90 tabs rimegepant 75 mg disintegrating 75 mg PO Q OTHER DAY PRN Migraine 02/15/24 tablet (Nurtec ODT) #8 tabs Allergies Allergy/AdvReac Type Severity Reaction Status Date / Time No Known Allergies Allergy Verified 02/15/24 07:38 Worker's Comp Is this a Worker's Comp case?: No [facility] Disclaimer: The information contained in this section may have been updated after the patient was seen, as this information can be updated by other users. Medical History Muscle spasm Right ankle instability Tenosynovitis of right ankle Anterior tibialis tendinitis of right lower extremity Class 1 obesity Partial tear of right Achilles tendon Strain of gastrocnemius tendon of right lower extremity Pes anserinus bursitis of right knee Vasovagal episode COVID-19 Posterior tibial tendinitis, right leg Strep throat Paresthesia and pain of right extremity Postoperative edema Injury of right ankle Right Achilles tendinitis Fall Contusion of right thigh Contusion of right lower leg Contusion of right hip Contusion of right knee Ankle sprain Nausea & vomiting Sinusitis Sprain Wrist pain Forearm pain Retained suture Left sided sciatica Right posterior tibial strain Acute bronchitis Acute sinusitis Pneumonia History of COVID-19 Asthma Sinus headache Migraine History of gastroesophageal reflux (GERD) Allergies History of anemia Surgical History Status post foot surgery H/O tubal ligation History of surgery RIGHT ANKLE Family History (Updated 02/15/24 @ 09:17 by Kaylee Lord) Other Diabetes Hyperlipidemia Hypertension Social History (Updated 02/15/24 @ 09:19 by Kaylee Lord) Smoking Status: Never smoker second hand exposure: No alcohol intake: never substance use type: denies use current occupational status: employed Travel in the last 8 weeks: None household members: family housing: house marital status: number of children: 3 current occupation: [employer] current occupational exposures/hazards: No caffeine: Yes Have you lived/traveled outside [place] in past 30 days?: No Contact w/someone who lives/traveled outside US past 30 days?: No Exposure to someone with infectious disease in past 14 days?: No Do you have a fever (greater than 100.4 F or 38 C)?: No Have you tested positive for COVID-19: No Exposed to someone with COVID-19 in past 14 days?: No Do you have a sore throat?: No Do you have a cough?: No Do you have any weakness?: No Do you have any diarrhea?: No Are you experiencing any unusual bleeding?: No Do you have any muscle aches/pain?: No Do you have any abdominal pain?: Yes Are you experiencing loss of taste or smell?: No ROS Obtained: Yes All systems reviewed & no additional complaints except as documented and Yes Systems reviewed as appropriate & no additional complaints except as documented Constitutional Constitutional: Reports system reviewed and no additional complaints, except as documented, Reports as per HPI, Denies body ache, Denies chills and Denies fever(s) Eyes Eyes: Reports system reviewed and no additional complaints, except as documented and Reports as per HPI ENT Ears, Nose, Mouth, and Throat: Reports system reviewed and no additional complaints, except as documented and Reports as per HPI Cardiovascular Cardiovascular: Reports system reviewed and no additional complaints, except as documented and Reports as per HPI Respiratory Respiratory: Reports system reviewed and no additional complaints, except as documented and Reports as per HPI Gastrointestinal Gastrointestingal: Reports system reviewed and no additional complaints, except as documented, as per HPI, abdominal pain (left lower quad pain got worse over last 5 days rates pain a 7) and nausea (reports the pain makes her nauseous); Denies diarrhea or vomiting Genitourinary Female Genitourinary: Reports system reviewed and no additional complaints, except as documented and Reports as per HPI Physical Exam General General appearance: alert and in no apparent distress ENT ENT exam: Present normal exam, normal oropharynx and mucous membranes moist Respiratory Respiratory exam: Present normal lung sounds bilaterally; Absent respiratory distress or wheezes Cardiovascular Cardiovascular exam: Present regular rate, normal rhythm and normal heart sounds Abdominal Exam Abdominal exam: Present tenderness (reports tenderness in left lower quad rates pain 7/10) and normal bowel sounds Neurological Exam Neurological exam: Present alert, oriented X3 and normal gait Medical Decision Making Medical Records Screening: Per USPSTF and CDC recommendations, given the prevalence of disease in our region, it is our hospital?s policy to screen for HIV and viral Hepatitis for all patients aged 18 and over and those with ongoing risk factors. Eron Inquiry Pt receiving controlled substance: No Eron was queried for this patient: No Vital Signs: 03/06/24 14:10 Temperature 97.9 F Temperature Source Oral Pulse Rate [Left Brachial] 92 H Respiratory Rate 19 Blood Pressure [Left Arm] 122/72 Blood Pressure Mean [Left Arm] 88 Blood Pressure Source [Left Arm] Automatic Cuff Blood Pressure Position [Left Arm] Sitting 02 Sat by Pulse Oximetry 100 Oxygen Delivery Method Room Air Lab Data Lab results reviewed: Yes I reviewed the patient's lab results. Lab Results 03/06/24 14:14: Urine Color Dark yellow, Urine Appearance Clear, Urine pH 6.5, Ur Specific [place] 1.015, Urine Protein Negative, Urine Glucose (UA) Negative, Urine Ketones Negative, Urine Blood Negative, Urine Nitrate Negative, Urine Bilirubin Negative, Urine Urobilinogen 0.2, Ur Leukocyte Esterase 1+ A 03/06/24 15:05 03/06/24 15:05 Orders (Tests/Meds): ORDERS Category Date Time Status Urine Culture Stat Micro 03/06/24 14:06 Received Medical Decision Narrative: Patient states that she started about 5 days ago with pain in her left lower quad that has got progressively worse and at times describes pain as stabbing pain rates pain a 7/10 States today the pain was unbearable and very uncomfortable so she came in to get it checked Discussed with patient and due to pain in left lower quad that is stabbing like pain at this time recommended transfer to the ED for further work up and evaluation and she agreed
--- NOTE | 2024-03-06 14:54 | PC.NURSE ---
PATIENT SENT TO ER PER Ósacr MEYERS APRN FOR FURTHER EVALUATION. REPORT GIVEN TO DR. BOLAÑOS BY Óscar MEYERS APRN. PATIENT AMBULATED TO ER WITH [facility] STAFF AT THIS TIME
[2024-03-06 14:55] LABS: Urine Pregnancy, HCG Qual. Negative (Negative)
[2024-03-06 15:02] VITALS: BP 134/88; PULSE 94; RESP 18; TEMP 36.6; O2SAT 100; BMI 32.8
--- NOTE | 2024-03-06 16:09 | US_ITS ---
PROCEDURE INFORMATION: Exam: US Duplex Artery and Vein of the Abdominal and/or Reproductive Organs. Complete Ovaries Exam date and time: 03/06/2024 4:11 PM Age: 44 years old Clinical indication: Pelvic pain; Additional info: Llq intermittent stabbing pains TECHNIQUE: Imaging protocol: Real-time duplex ultrasound scan of the arterial and venous flow with color Doppler flow and spectral waveform analysis with image documentation. Duplex exam was performed to evaluate for torsion and other vascular conditions. Total images: 283 COMPARISON: CR XR HIP RT 2-3V W/PELVIS 10/29/2018 6:42 PM FINDINGS: Right ovary/adnexa: Blood flow is demonstrated to the right ovary. Left ovary/adnexa: Blood flow is demonstrated to the left ovary. IMPRESSION: No evidence of ovarian torsion. PROCEDURE INFORMATION: Exam: US Pelvis, Transvaginal, Non-Obstetric Exam date and time: 03/06/2024 4:11 PM Age: 44 years old Clinical indication: Pelvic pain; Additional info: Llq intermittent stabbing pains TECHNIQUE: Imaging protocol: Real-time transvaginal pelvic (non-obstetric) ultrasound with image documentation. Transvaginal imaging was used for better evaluation of the endometrium, adnexa, and/or cervix. COMPARISON: CR XR HIP RT 2-3V W/PELVIS 10/29/2018 6:42 PM FINDINGS: Uterus: Uterus measures 7.3 x 4.1 x 5.8 cm. Fluid is noted within the endometrial canal. No uterine masses. Right ovary/adnexa: Right ovary measures 4.1 x 3.2 x 2.1 cm. Right ovarian cyst is present measuring 1.7 x 2.4 x 1.5 cm. Left ovary/adnexa: Left ovary measures 3.1 x 1.4 x 1.6 cm. Left ovarian cysts are present measuring 8 and 6 mm. Urinary bladder: Urinary bladder is limited. Intraperitoneal space: Fluid is noted within the cul-de-sac. IMPRESSION: 1. Fluid is noted within the endometrial canal. 2. No uterine masses. 3. Fluid is noted within the cul-de-sac. 4. Right ovarian cyst is present measuring 1.7 x 2.4 x 1.5 cm. 5. Left ovarian cysts are present measuring 8 and 6 mm.
--- NOTE | 2024-03-06 16:11 | HMH.EDGENADL ---
Discharge Plan Disposition Patient Disposition: Home, Self-Care Prescriptions Prescriptions: No Action epinephrine 0.3 mg/0.3 mL auto-injector 0.3 ml IM NEEDED PRN (Reason: Allergic Reaction) Qty: 2 levocetirizine 5 mg tablet 5 mg PO ONCE Patient Comments: TAKE 1 TABLET BY MOUTH EVERY DAY Nurtec ODT 75 mg tablet,disintegrating 75 mg PO Q OTHER DAY PRN (Reason: Migraine) Qty: 8 3RF amitriptyline 25 mg tablet 50 mg PO QHS oxcarbazepine 300 mg tablet 300 mg PO BID Qty: 90 3RF Rx Instructions: Take 1 tablet in the morning and 2 tablets at night Qvar RediHaler 80 mcg/actuation HFA aerosol breath activated 1 inh inhalation BID azelastine 137 mcg (0.1 %) spray,non-aerosol 2 spray intranasal BID Patient Comments: SPRAY 1-2 SPRAY INTO BOTH NOSTRILS TWICE A DAY montelukast 10 MG tablet 10 mg PO PM albuterol sulfate 108 HFA aerosol inhaler 2 puffs PO DIRECTED Referrals Follow up/Referrals: Radha Gonzalez APRN [Primary Care Provider] - See instructions Activity Restrictions/Add. Instructions Additional Instructions/Restrictions: Call your family doctor to establish care for this visit to the emergency department and schedule follow-up within 48 hours to ensure improvement. If you have any worsening of your condition or any other concerning signs or symptoms, return to the emergency department or your primary care doctor for further evaluation. Take Tylenol 1000 mg every 6 hours (4 times daily) and ibuprofen 400 mg every 6 hours (4 times daily) as needed with food and water to prevent GI upset and kidney damage. Clinical Impressions Clinical Impression: Left lower quadrant abdominal pain Instructions Patient Instructions: DI for Acute Abdominal Pain Print Language Print Language: Albanian Discharge ED Provider: Aime Hoffman General Adult [facility] General Chief complaint: Abdominal Pain Stated complaint: Pain Lower L abd Time Seen by Provider: 03/06/24 14:35 Mode of Arrival: Ambulatory Source of Information: Patient Limitations: No Limitations Description of Symptoms (Recalled from ER Triage Doc. by RN): pt states at 0100 on 03/01 she awoke with severe abd pain. pt reports LUQ/LLQ abd pain thast is constant, worse in waves, 7/10 and stabbing in nature. pt reports some nausea. pts last BM was yesterday LMP mid February. pt has a hx of a tubal. pt denies urinary symptoms, chest pain or SOA History of Present Illness HPI narrative: Please note that above description of symptoms, in this electronic medical record under categorization of recalled from ER triage doctor by RN are reflective of an initial nursing assessment, however, is not reflective of my full history and physical exam that was personally taken and clarified. Consequentially, this preceding description of symptoms, which may include the patient's categorized chief complaint in the EMR, do not reflect my personal clinical impression, and the ultimate description of history of present illness and patient stated complaints should be deferred to this section of the note. Unless stated otherwise or congruent with this section of the note, additional signs, symptoms, or incongruence should be interpreted as inaccurate with my clinical impression. Related Data Home Medications ?Medication ?Instructions ?Recorded ?Confirmed albuterol sulfate 90 mcg/actuation 2 puffs PO DIRECTED Asthma 04/17/18 03/06/24 aerosol inhaler montelukast 10 mg tablet 10 mg PO PM Asthma 04/17/18 03/06/24 epinephrine 0.3 mg/0.3 mL 0.3 ml IM NEEDED PRN Allergic 07/30/18 03/06/24 injection, auto-injector Reaction #2 ea azelastine 137 mcg (0.1 %) nasal 2 spray intranasal BID 12/23/23 03/06/24 spray beclomethasone dipropionate 80 1 inh inhalation BID 12/23/23 03/06/24 mcg/actuation HFA breath activated aerosol (Qvar RediHaler) amitriptyline 25 mg tablet 50 mg PO QHS .migraine 02/15/24 03/06/24 levocetirizine 5 mg tablet 5 mg PO ONCE 02/15/24 03/06/24 Previous Rx's ?Medication ?Instructions ?Recorded oxcarbazepine 300 mg tablet 300 mg PO BID trigeminal neuralgia 02/15/24 #90 tabs rimegepant 75 mg disintegrating 75 mg PO Q OTHER DAY PRN Migraine 02/15/24 tablet (Nurtec ODT) #8 tabs Allergies Allergy/AdvReac Type Severity Reaction Status Date / Time No Known Allergies Allergy Verified 02/15/24 07:38 [facility] Disclaimer: The information contained in this section may have been updated after the patient was seen, as this information can be updated by other users. Medical History Muscle spasm Right ankle instability Tenosynovitis of right ankle Anterior tibialis tendinitis of right lower extremity Class 1 obesity Partial tear of right Achilles tendon Strain of gastrocnemius tendon of right lower extremity Pes anserinus bursitis of right knee Vasovagal episode COVID-19 Posterior tibial tendinitis, right leg Strep throat Paresthesia and pain of right extremity Postoperative edema Injury of right ankle Right Achilles tendinitis Fall Contusion of right thigh Contusion of right lower leg Contusion of right hip Contusion of right knee Ankle sprain Nausea & vomiting Sinusitis Sprain Wrist pain Forearm pain Retained suture Left sided sciatica Right posterior tibial strain Acute bronchitis Acute sinusitis Pneumonia History of COVID-19 Asthma Sinus headache Migraine History of gastroesophageal reflux (GERD) Allergies History of anemia Surgical History Status post foot surgery H/O tubal ligation History of surgery RIGHT ANKLE Family History (Updated 02/15/24 @ 09:17 by Kaylee Lord) Other Diabetes Hyperlipidemia Hypertension Social History (Updated 02/15/24 @ 09:19 by Kaylee Lord) Smoking Status: Never smoker second hand exposure: No alcohol intake: never substance use type: denies use current occupational status: employed Travel in the last 8 weeks: None household members: family housing: house marital status: number of children: 3 current occupation: [email or web address] current occupational exposures/hazards: No caffeine: Yes Have you lived/traveled outside [place] in past 30 days?: No Contact w/someone who lives/traveled outside US past 30 days?: No Exposure to someone with infectious disease in past 14 days?: No Do you have a fever (greater than 100.4 F or 38 C)?: No Have you tested positive for COVID-19: No Exposed to someone with COVID-19 in past 14 days?: No Do you have a sore throat?: No Do you have a cough?: No Do you have any weakness?: No Do you have any diarrhea?: No Are you experiencing any unusual bleeding?: No Do you have any muscle aches/pain?: No Do you have any abdominal pain?: Yes Are you experiencing loss of taste or smell?: No Other Medical History Have you received the Flu Vaccine for this season: No Have you received the Pneumonia Vaccine: No ROS Obtained: Yes All systems reviewed & no additional complaints except as documented Physical Exam General General appearance: alert and in distress (Secondary to pain) Head Head exam: atraumatic and normocephalic Eye Eye exam: Present normal appearance, PERRL and EOMI Neck Neck exam: Present normal inspection, full ROM and trachea midline Respiratory Respiratory exam: Absent respiratory distress, wheezes, stridor, accessory muscle use or prolonged expiratory phase Cardiovascular Cardiovascular exam: Present other (Pulses equal symmetric in upper and lower extremities) Abdominal Exam Abdominal exam: Present soft and tenderness; Absent distention, guarding, rebound, rigidity or pulsatile mass Abdominal tenderness: Present moderate Extremities Exam Extremities exam: Absent edema Back Exam Back exam: Absent CVA tenderness (R) or CVA tenderness (L) Neurological Exam Neurological exam: Present alert, oriented X3 and CN II-XII intact; Absent motor sensory deficit Skin Skin exam: Present warm and dry; Absent diaphoresis or erythema Medical Decision Making Medical Records Medical records reviewed: Yes I reviewed the patient's medical records. Screening: Per USPSTF and CDC recommendations, given the prevalence of disease in our region, it is our hospital?s policy to screen for HIV and viral Hepatitis for all patients aged 18 and over and those with ongoing risk factors. Eron Inquiry Pt receiving controlled substance: No Eron was queried for this patient: No Vital Signs: 03/06/24 14:10 03/06/24 15:02 03/06/24 18:46 Temperature 97.9 F 97.8 F Temperature Source Oral Oral Pulse Rate 90 Pulse Rate [Left Brachial] 92 H 94 H Respiratory Rate 19 18 Blood Pressure 117/65 Blood Pressure [Left Arm] 122/72 134/88 Blood Pressure Mean 84 Blood Pressure Mean [Left Arm] 88 103 Blood Pressure Source [Left Arm] Automatic Cuff Blood Pressure Position [Left Arm] Sitting 02 Sat by Pulse Oximetry 100 100 100 Oxygen Delivery Method Room Air Room Air Lab Data Lab Results 03/06/24 14:06: Urine HCG, Qual Negative 03/06/24 14:14: Urine Color Dark yellow, Urine Appearance Clear, Urine pH 6.5, Ur Specific [place] 1.015, Urine Protein Negative, Urine Glucose (UA) Negative, Urine Ketones Negative, Urine Blood Negative, Urine Nitrate Negative, Urine Bilirubin Negative, Urine Urobilinogen 0.2, Ur Leukocyte Esterase 1+ A 03/06/24 15:05: WBC 6.3, RBC 4.44, Hgb 12.0 L, Hct 36.1 L, MCV 81.3, MCH 27.0, MCHC 33.2, RDW 13.7, Plt Count 268, MPV 10.9 H, Neut % (Auto) 61.0, Lymph % (Auto) 29.6, Whiteside % (Auto) 6.4, Eos % (Auto) 2.2, Baso % (Auto) 0.6, Neut # (Auto) 3.8, Lymph # (Auto) 1.9, Whiteside # (Auto) 0.4, Eos # (Auto) 0.1, Baso # (Auto) 0.0, Sodium 135 L, Potassium 3.6, Chloride 103, Carbon Dioxide 23, Anion Gap 12.6, BUN 9, Creatinine 0.70, Estimated Creat Clear 139, Estimated GFR 92, Est GFR ( Amer) 111, Glucose 87, Calcium 9.5, Total Bilirubin 0.4, AST 28, ALT 18, Alkaline Phosphatase 110, Total Protein 7.3, Albumin 4.6, Globulin 2.7, Albumin/Globulin Ratio 1.7, Lipase 35, HIV Ag/Ab Combo Qual Negative 03/06/24 15:05 03/06/24 15:05 Orders (Tests/Meds): ED MEDICATIONS Generic Name Dose Route Start Last Admin Trade Name Freq PRN Reason Stop Dose Admin Sodium Chloride 10 ml 03/06/24 15:18 Sodium Chloride 0.9% 10ml Flush Syringe IV 04/05/24 15:17 NEEDED PRN Maintain IV Site Discontinued Medications Generic Name Dose Route Start Last Admin Trade Name Freq PRN Reason Stop Dose Admin Iopamidol 75 ml 03/06/24 18:27 03/06/24 18:29 Iopamidol-370 (76%);100ml Bottle IV 03/06/24 18:28 75 ml ONCE ONE Administration Ketorolac Tromethamine 15 mg 03/06/24 16:09 03/06/24 16:33 Ketorolac 30mg/Ml Vial IV 03/06/24 16:10 15 mg ONCE ONE Administration Morphine Sulfate 4 mg 03/06/24 16:09 03/06/24 16:33 Morphine 4mg/Ml Syringe IV 03/06/24 16:10 4 mg ONCE ONE Administration Ondansetron HCl 4 mg 03/06/24 16:09 03/06/24 16:34 Ondansetron 4mg/2ml Vial IV 03/06/24 16:10 4 mg ONCE ONE Administration Sodium Chloride 10 ml 03/06/24 18:27 03/06/24 18:28 Sodium Chloride 0.9% 10ml Syr (Rad Only) IV 03/06/24 18:28 10 ml ONCE ONE Administration ORDERS Category Date Time Status CT abdomen pelvis w con Stat Cat Scan 03/06/24 17:35 Completed US transvaginal Stat Exams 03/06/24 16:09 Completed CBC w/Auto Diff [Complete Blood Count Auto Diff] Stat Lab 03/06/24 15:05 Completed CMP [Comprehensive Metabolic Panel] Stat Lab 03/06/24 15:05 Completed HIV Combo Stat Lab 03/06/24 15:05 Completed Hep C Ab with Reflex to RNA Stat Lab 03/06/24 15:05 Received Lipase Stat Lab 03/06/24 15:05 Completed Urine , HCG Qual. Stat Lab 03/06/24 14:06 Completed Urine Culture Stat Micro 03/06/24 14:06 Received Medical Decision Narrative: 44-year-old female presenting with abdominal pain. Patient states that 5 days prior to this, she started having left lower quadrant pain it woke her up from sleep at 1 AM. Since that time, has been waxing and waning, intermittently stabbing. 10 out of 10 when at its worst, mild in intensity when it is not flaring up. Stabbing, radiates to her left flank. No nausea, vomiting, dysuria, hematuria, diarrhea, fevers, chills, urinary symptoms, vaginal discharge or bleeding, or any other concerns. Has not taken anything for the pain because it comes and goes and has not caught in time to take anything necessarily make it better. Patient went to urgent care earlier this morning, was told to come to the emergency department. History was obtained via conversation with patient. On arrival, patient hemodynamically stable, alert, oriented x4, appropriate, GCS 15, moving all extremities spontaneously, pupils equal and reactive to light. Full physical exam performed and significant for uncomfortable appearing female who is appears to be in mild distress secondary to pain. Abdomen is soft, nondistended, but moderately tender in her left lower quadrant. No signs of peritonitis. No flank tenderness. No overlying skin changes. Differential includes PUD, gastritis, enteritis, gastroenteritis, pancreatitis, SBO, colitis, diverticulitis, nephrolithiasis, UTI, cholecystitis, choledocholithiasis, appendicitis, torsion, hepatitis, less likely aortic pathology, mesenteric ischemia among others. Patient placed on continuous cardiac monitoring and continuous pulse ox with initial blood pressure 134/88, heart rate 94,, saturation 100% on room air. Patient was given Toradol, morphine, Zofran for symptomatic management and correction of underlying abnormalities. Workup independently interpreted and significant for nonactionable hematologic workup. Nonactionable urine. On independent interpretation of imaging, patient has small amount of fluid in the cul-de-sac, but overall nonactionable pelvic ultrasound. Patient reevaluated, still having pain in her left lower quadrant so CT abdomen pelvis was ordered. On independent interpretation, no acute intra-abdominal abnormality. On reevaluation, patient states that she is feeling much better. Given patient presentation, workup, history, this most likely represents ruptured ovarian cyst versus other intra-abdominal abnormality. Given significant improvement and very well-appearing patient on reevaluation, I feel there is low likelihood for acute surgical or medical emergency. Do not have a great answer for patient's pain today, but close follow-up recommended. She voiced her understanding. Because patient at baseline without signs or symptoms of clinical decompensation, deemed appropriate for discharge. Results were relayed to patient who voiced understanding and were agreeable to outpatient management and follow up. I discussed my clinical impression with patient and answered all questions. At this time, the evidence for any other entities in the differential is insufficient to warrant any further testing or ED observation. This was explained as well. Advisory was given that persistent or worsening symptoms require further evaluation. I confirmed the understanding of this discussion. Assortment Planner disclaimer Much of this encounter note is an electronic online user experience strategist spoken language to printed text. Electronic online user experience strategist of the spoken language may permit errors. Although I have reviewed the note, some errors may still exist. Critical Care Critical Care Time Critical Care Time: No
[2024-03-06 16:15] LABS: HIV Combo NEGATIVE (Negative)
[2024-03-06 16:17] LABS: Basophils % 0.6 % (0.1-2.0); Eosinophils # 0.1 K/mm3 (0.0-0.4); Eosinophils % 2.2 % (0.1-12.0); Hematocrit 36.1 % (37.0-47.0); Lymphocytes # 1.9 K/mm3 (0.7-4.5); Lymphocytes % 29.6 % (10-50); Mean Corpuscular HGB Conc 33.2 g/dL (31.8-35.4); Mean Corpuscular Volume 81.3 fl (81-99); Mean Platelet Volume 10.9 fl (7.4-10.4); Monocytes # 0.4 K/mm3 (0.1-1.0); Monocytes % 6.4 % (1.7-9.3); Neutrophils # 3.8 K/mm3 (1.8-7.8); Platelet Count 268 K/mm3 (142-424); Red Blood Count 4.44 M/mm3 (4.20-5.40); Red Cell Distribution Width 13.7 % (11.5-17.5); White Blood Count 6.3 K/mm3 (4.8-10.8)
[2024-03-06] MEDS: KETOROLAC 30MG/ML VIAL 15 MG IV (16:33)
[2024-03-06] MEDS: MORPHINE 4MG/ML SYRINGE 4 MG IV (16:33)
[2024-03-06] MEDS: ONDANSETRON 4MG/2ML VIAL 4 MG IV (16:34)
[2024-03-06 16:55] LABS: Alanine Aminotransferase 18 U/L (12-78); Albumin Level 4.6 g/dl (3.5-5.0); Albumin/Globulin Ratio 1.7 (1.1-1.8); Alkaline Phosphatase 110 U/L (38-126); Anion Gap 12.6 mEq/L (5-15); Aspartate Amino Transferase 28 U/L (14-36); Bilirubin,Total 0.4 mg/dl (0.2-1.3); Blood Urea Nitrogen 9 mg/dl (7-17); Calcium 9.5 mg/dl (8.4-10.2); Carbon Dioxide 23 mmol/L (22.0-30.0); Chloride 103 mmol/L (98-107); Creatinine Clearance Estimated 139 mL/min (50-200); Estimated Glomerular Filt Rate 92 ml/min (>60); GFR (African American) 111 ML/MIN (>60); Globulin 2.7 g/dL (1.3-3.2); Glucose 87 mg/dl (74-100); Lipase 35 U/L (23-300); Potassium 3.6 mmoL/L (3.5-5.1); Sodium 135 mmol/L (136-145); Total Protein,Serum 7.3 g/dl (6.3-8.2)
--- NOTE | 2024-03-06 17:35 | CT_ITS ---
PROCEDURE INFORMATION: Exam: CT Abdomen And Pelvis With Contrast Exam date and time: 03/06/2024 6:27 PM Age: 44 years old Clinical indication: Other: Severe llq pain, normal tvus TECHNIQUE: Imaging protocol: Computed tomography of the abdomen and pelvis with contrast. Radiation optimization: All CT scans at this facility use at least one of these dose optimization techniques: automated exposure control; mA and/or kV adjustment per patient size (includes targeted exams where dose is matched to clinical indication); or iterative reconstruction. Contrast material: ISOVUE; Contrast volume: 75 ml; Contrast route: IV; COMPARISON: 1. CR XR HIP RT 2-3V W/PELVIS 10/29/2018 6:42 PM 2. US TRANSVAGINAL 03/06/2024 4:11 PM 3. CR XR SCAPULA RT 12/23/2023 3:24 PM FINDINGS: Lungs: There are areas of subpleural reticulation throughout the visualized lungs which are nonspecific. Liver: Normal. Gallbladder and biliary ducts: No acute process. Pancreas: Normal. Spleen: Normal. Adrenal glands: The adrenal glands appear normal. Kidneys and ureters: There are no soft tissue renal masses or hydronephrosis. Stomach and bowel: The stomach, small bowel, and colon are well-distended and show no evidence of wall thickening, masses, or obstruction. Appendix: No evidence of appendicitis. Intraperitoneal space: Unremarkable. Vasculature: The abdominal aorta and its major branches appear normal without evidence of aneurysm or stenosis. There are pelvic phleboliths. Lymph nodes: No lymphadenopathy. Urinary bladder: There is mild bladder wall thickening, nonspecific. Reproductive: 2 cm right corpus luteum. Bones/joints: The visualized osseous structures of the abdomen and pelvis appear normal for patient age. Soft tissues: There is a small fat containing umbilical hernia. IMPRESSION: Mild bladder wall thickening could reflect an element of cystitis, please correlate clinically.
[2024-03-06] MEDS: SODIUM CHLORIDE 0.9% 10ML SYR (RAD ONLY) 10 ML IV (18:28)
[2024-03-06] MEDS: IOPAMIDOL-370 (76%);100ML BOTTLE 75 ML IV (18:29)
[2024-03-06 18:46] VITALS: BP 117/65; PULSE 90; O2SAT 100
[2024-03-06 19:26] VITALS: BP 117/65; PULSE 84; RESP 18; TEMP 36.6; O2SAT 100
[2024-03-07 05:33] LABS: HCV Ab Non Reactive (Non Reactive)
== END 2024-03-06 19:28 | disposition home or self-care (01) ==
LOC: UTC 14:48 → ER 14:53
PROVIDERS: Nurse Practitioner; Emergency Provider Emergency Medicine; PCP Nurse Practitioner Family
DX: R10.32 Left lower quadrant pain (principal); R10.31 Right lower quadrant pain; R11.0 Nausea
CPT/HCPCS: 74177; 76830; 80053; 81003; 81025; 83690; 85025; 86803; 87086; 87389; 96374; 96375; 99285; J1885; J2270; J2405; Q9967

== ENCOUNTER 2024-04-08 16:59 | Emergency (ER) | payer OTHER, SELFPAY ==
[2024-04-08 17:19] VITALS: BP 137/80; PULSE 108; RESP 19; TEMP 37.2; O2SAT 99; BMI 34.4
--- NOTE | 2024-04-08 17:28 | EXP.UTC ---
Discharge Plan Disposition Patient Disposition: Home, Self-Care Condition: Good Prescriptions Prescriptions: No Action epinephrine 0.3 mg/0.3 mL auto-injector 0.3 ml IM NEEDED PRN (Reason: Allergic Reaction) Qty: 2 levocetirizine 5 mg tablet 5 mg PO ONCE Patient Comments: TAKE 1 TABLET BY MOUTH EVERY DAY Nurtec ODT 75 mg tablet,disintegrating 75 mg PO Q OTHER DAY PRN (Reason: Migraine) Qty: 8 3RF oxcarbazepine 300 mg tablet 300 mg PO BID Qty: 90 3RF Rx Instructions: Take 1 tablet in the morning and 2 tablets at night Qvar RediHaler 80 mcg/actuation HFA aerosol breath activated 1 inh inhalation BID azelastine 137 mcg (0.1 %) spray,non-aerosol 2 spray intranasal BID Patient Comments: SPRAY 1-2 SPRAY INTO BOTH NOSTRILS TWICE A DAY pantoprazole [Protonix] 20 mg tablet,delayed release (DR/EC) 20 mg PO DAILY Qty: 30 2RF amitriptyline 25 mg tablet 50 mg PO QHS Qty: 60 2RF montelukast 10 MG tablet 10 mg PO PM albuterol sulfate 108 HFA aerosol inhaler 2 puffs PO DIRECTED Referrals Follow up/Referrals: Radha Gonzalez APRN [Primary Care Provider] - See instructions Activity Restrictions/Add. Instructions Additional Instructions/Restrictions: Too late to start Tamiflu. Most effective when started within 48 hours of symptoms onset Lots of rest Increase Fluids water, Gatorade, powerade, pedialyte,if infant/toddler/child Alternate Tylenol and / or ibuprofen as discussed for fever, aches, chills Follow up IMMEDIATELY with your family doctor for new or worsening Symptoms OR no noticeable improvement over the next 48-72 hours, 911 for difficulty or breathing You or your child area contagious until no fever, aches, chills for 24 hours with medication for symptoms Help Prevent the spread of influenza: ?Wash your hands often. Use soap and water. Wash your hands after you use the bathroom, change a child's diapers, or sneeze. Wash your hands before you prepare or eat food. Use gel hand cleanser that has 60% alcohol, when soap and water are not available. Do not touch your eyes, nose, or mouth unless you have washed your hands first. Cover your mouth when you sneeze or cough. Cough into a tissue or the bend of your arm. If you use a tissue, throw it away immediately and wash your hands. Clean shared items with a germ-killing room cleaner. Clean table surfaces, doorknobs, and light switches. Do not share towels, silverware, and dishes with people who are sick. Wash bed sheets, towels, silverware, and dishes with soap and water. Wear a mask over your mouth and nose if you are sick. The face mask may help protect others from becoming infected with the flu. Wear the mask when in common areas of your home or if you seek care with a healthcare provider. Stay away from others if you are sick. Stay at home until 24 hours after your fever and symptoms are gone. Clinical Impressions Clinical Impression: Influenza Stand Alone Forms Stand Alone Forms: Work/School Release Instructions Patient Instructions: Influenza, DI for Influenza -- Adult Print Language Print Language: Urdu Discharge ED Provider: Dayna Hu [facility] [place] HPI General Stated complaint: congestion,runny nose,MIJARES,sore throat Mode of Arrival: Ambulatory Source of Information: Patient Limitations: No Limitations Time Seen by Provider: 04/08/24 17:28 Description of Symptoms (Recalled from Triage Doc. by RN): Pt c/o sinus pressure and drainage, rt ear pain, cough, and fever. Says she has been exposed to flu. HEENT Symptoms (Recalled from RN notes): Yes Resp Symptoms (Recalled from RN notes): Yes Skin Symptoms (Recalled from RN notes): No MS Symptoms (Recalled from RN notes): No Functional Status (Recalled from RN notes): wnl History of Present Illness Provider Complaint: Patient states that she was exposed to the flu States that she has been having sinus congestion, cough, body aches, chills and over all not feeling well for the last few days so today when she was still not feeling well she came in Related Data Home Medications ?Medication ?Instructions ?Recorded ?Confirmed albuterol sulfate 90 mcg/actuation 2 puffs PO DIRECTED Asthma 04/17/18 04/04/24 aerosol inhaler montelukast 10 mg tablet 10 mg PO PM Asthma 04/17/18 04/04/24 epinephrine 0.3 mg/0.3 mL 0.3 ml IM NEEDED PRN Allergic 07/30/18 04/04/24 injection, auto-injector Reaction #2 ea azelastine 137 mcg (0.1 %) nasal 2 spray intranasal BID 12/23/23 04/04/24 spray beclomethasone dipropionate 80 1 inh inhalation BID 12/23/23 04/04/24 mcg/actuation HFA breath activated aerosol (Qvar RediHaler) levocetirizine 5 mg tablet 5 mg PO ONCE 02/15/24 04/04/24 Previous Rx's ?Medication ?Instructions ?Recorded oxcarbazepine 300 mg tablet 300 mg PO BID trigeminal neuralgia 02/15/24 #90 tabs rimegepant 75 mg disintegrating 75 mg PO Q OTHER DAY PRN Migraine 02/15/24 tablet (Nurtec ODT) #8 tabs pantoprazole 20 mg tablet,delayed 20 mg PO DAILY #30 tabs 03/09/24 release (Protonix) amitriptyline 25 mg tablet 50 mg (2 x 25 mg) PO QHS .migraine 03/20/24 #60 tabs Allergies Allergy/AdvReac Type Severity Reaction Status Date / Time No Known Allergies Allergy Verified 04/04/24 13:24 Worker's Comp Is this a Worker's Comp case?: No [facility] Disclaimer: The information contained in this section may have been updated after the patient was seen, as this information can be updated by other users. Medical History Muscle spasm Right ankle instability Tenosynovitis of right ankle Anterior tibialis tendinitis of right lower extremity Class 1 obesity Partial tear of right Achilles tendon Strain of gastrocnemius tendon of right lower extremity Pes anserinus bursitis of right knee Vasovagal episode COVID-19 Posterior tibial tendinitis, right leg Strep throat Paresthesia and pain of right extremity Postoperative edema Injury of right ankle Right Achilles tendinitis Fall Contusion of right thigh Contusion of right lower leg Contusion of right hip Contusion of right knee Ankle sprain Nausea & vomiting Sinusitis Sprain Wrist pain Forearm pain Retained suture Left sided sciatica Right posterior tibial strain Acute bronchitis Acute sinusitis Pneumonia History of COVID-19 Asthma Sinus headache Migraine History of gastroesophageal reflux (GERD) Allergies History of anemia Surgical History Status post foot surgery H/O tubal ligation History of surgery RIGHT ANKLE Family History Other Diabetes Hyperlipidemia Hypertension Social History Smoking Status: Never smoker second hand exposure: No alcohol intake: never substance use type: denies use current occupational status: employed Travel in the last 8 weeks: None household members: family housing: house marital status: number of children: 3 current occupation: [employer] current occupational exposures/hazards: No caffeine: Yes Have you lived/traveled outside [place] in past 30 days?: No Contact w/someone who lives/traveled outside US past 30 days?: No Exposure to someone with infectious disease in past 14 days?: Yes Do you have a fever (greater than 100.4 F or 38 C)?: No Have you tested positive for COVID-19: No Exposed to someone with COVID-19 in past 14 days?: No Do you have a sore throat?: Yes Do you have a cough?: Yes Do you have any weakness?: No Do you have any diarrhea?: No Are you experiencing any unusual bleeding?: No Do you have any muscle aches/pain?: No Do you have any abdominal pain?: No Are you experiencing loss of taste or smell?: No ROS Obtained: Yes All systems reviewed & no additional complaints except as documented and Yes Systems reviewed as appropriate & no additional complaints except as documented Constitutional Constitutional: Reports system reviewed and no additional complaints, except as documented, Reports as per HPI, Reports body ache, Reports chills, Reports fever(s) and Reports headache(s) ENT Ears, Nose, Mouth, and Throat: Reports system reviewed and no additional complaints, except as documented, Reports as per HPI, Reports otalgia (pressure/ feeling of fullness), Reports headache(s), Reports nasal congestion and Reports nasal discharge Cardiovascular Cardiovascular: Reports system reviewed and no additional complaints, except as documented and Reports as per HPI Respiratory Respiratory: Reports system reviewed and no additional complaints, except as documented, Reports as per HPI and Reports cough Gastrointestinal Gastrointestingal: Reports system reviewed and no additional complaints, except as documented and as per HPI Neurologic Neurologic: Reports headache(s) Physical Exam General General appearance: alert and in no apparent distress ENT ENT exam: Present mucous membranes moist Expanded ENT Exam TM/Canal exam: Bilateral TM: bulging (no redness) Nose exam: Absent sinus tenderness Throat exam: Present normal inspection Respiratory Respiratory exam: Present normal lung sounds bilaterally; Absent respiratory distress or wheezes Cardiovascular Cardiovascular exam: Present regular rate, normal rhythm and normal heart sounds Abdominal Exam Abdominal exam: Present soft and normal bowel sounds; Absent distention or tenderness Neurological Exam Neurological exam: Present alert, oriented X3 and normal gait Medical Decision Making Medical Records Screening: Per USPSTF and CDC recommendations, given the prevalence of disease in our region, it is our hospital?s policy to screen for HIV and viral Hepatitis for all patients aged 18 and over and those with ongoing risk factors. Eron Inquiry Pt receiving controlled substance: No Eron was queried for this patient: No Vital Signs: 04/08/24 17:19 Temperature 99.0 F Temperature Source Oral Pulse Rate [Right Brachial] 108 H Respiratory Rate 19 Blood Pressure [Right Arm] 137/80 Blood Pressure Mean [Right Arm] 99 Blood Pressure Source [Right Arm] Manual Cuff/ Auscultation Blood Pressure Position [Right Arm] Sitting 02 Sat by Pulse Oximetry 99 Lab Data Lab results reviewed: Yes I reviewed the patient's lab results.
[2024-04-08 17:30] LABS: UTC Influenza A Antigen Positive (Negative); UTC Influenza B Antigen Negative (Negative)
[2024-04-08 17:40] VITALS: BP 137/80; PULSE 104; RESP 19; TEMP 37.2; O2SAT 100
== END 2024-04-08 17:43 | disposition home or self-care (01) ==
PROVIDERS: Emergency Provider Nurse Practitioner; PCP Nurse Practitioner Family
DX: J10.1 Influenza due to other identified influenza virus with other respiratory manifestations (principal)
CPT/HCPCS: 87804; 99213; G0381

== ENCOUNTER 2024-04-14 13:53 | Outpatient (CLI) | payer OTHER, SELFPAY ==
--- NOTE | 2024-04-14 13:54 | US_ITS ---
PROCEDURE: US TRANSVAGINAL CLINICAL INDICATION: 3 month f/u Ovarian Cyst COMPARISON: US US TRANSVAGINAL from 03/06/[address] ABDOMEN PELVIS W CON from 03/06/2024 FINDINGS: Transvaginal sonographic images of the pelvis were obtained. UTERUS: 6.9 cm x 5.4cmx 4.3cm retroverted with a combined endometrial thickness of 5.7mm. There appears to be a polyp within the endometrium at the fundus that measures 0.8 cm x 0.4 cm. There is a small amount of fluid in the endometrial cavity. LEFT OVARY: 3cmx2.5cmx1.3cm with a volume of 4.3ml. There are multiple small peripheral follicles. RIGHT OVARY: 2.7 cmx1.2cm There are several small peripheral follicles. The largest measures 8 mm. Both ovaries are seen and appear normal. Doppler flow to both ovaries are seen. There is no fluid in the cul-de-sac. IMPRESSION: 1. Retroverted uterus normal in shape and size. The endometrium is thin. 2. Within the endometrium at the fundus there appears to be a polyp that measures 0.8 cm x 0.4 cm. 3. There is a small amount of fluid within the endometrial cavity and patient was having her menses. 4. Both ovaries are seen and appear normal. The previously described 2.4 cm right ovarian follicle has resolved. 5. No fluid in the cul-de-sac. Dictated by: Eugenio Valenzuela MD 04/15/2024 10:16 Eugenio Valenzuela MD in [place] 04/15/2024 10:16
== END 2024-04-14 23:59 | disposition home or self-care (01) ==
LOC: RAD 13:54
PROVIDERS: PCP Nurse Practitioner Family; Visit Provider Obstetrics & Gynecology
DX: N83.201 Unspecified ovarian cyst, right side (principal)
CPT/HCPCS: 76830

== ENCOUNTER 2024-10-02 16:24 | Outpatient (CLI) | payer OTHER, SELFPAY ==
--- OUTSIDE RECORDS SUMMARY | 2024-10-02 16:28 | XMS_ITS | Encounter Summary ---
Author Organization [employer] ([place], [place], [place], [place]) Address [address] [place] [address] Care Team Providers Care Manager Building Name Role Phone Unavailable Primary Care Provider Unavailabl e Encounter Details Date Type Department Care Team (Late st Contact Info) Description 07/25/2018 Transcribed Document [facility] [place] Family Medicine [address] [place] [address] ProviderSamia MD [address], [place] [id number] Social History Tobacco Use Types Packs/Day Years Used Date Smoking Tobacco: Never Assessed Comments Unknown Sex and Gender Information Value Date Recorded Sex Assigned at Female 09/04/2021 5:04 PM CDT Legal Sex Female 6:35 PM CDT Gender Identity Female 09/04/2021 5:04 PM CDT Sexual Orientation Not on file documented as of this encounter Miscellaneous Notes * [employer] Conversion Note - Historical ProviderMD - 07/25/2018 5:10 PM CDT ED Discharge Entered On: 07/25/2018 17:10 EDT Performed On: 07/25/2018 17:10 EDT by Austyn Russell Rn Discharge Process Patient Disposition : Discharge Teaching Evaluation : Verbalizes understanding IV Discontinued : Yes IV Therapy Comment : Cath intact Austyn Russell, Rn - 07/25/2018 17:10 EDT Electronically signed by Cherelle [facility] Conversion Retail Sales Advisor [employer] at 06/26/2022 6:18 PM CDT documented in this encounter Plan of Treatment Not on file documented as of this encounter Visit Diagnoses Not on filedocumented in this encounter
--- OUTSIDE RECORDS SUMMARY | 2024-10-02 16:28 | XMS_ITS | Referral Summary ---
Author Organization [employer] ([place], [place], [place], [place]) Address [address] [place] [address] Care Team Providers Care Consulting Sales Manager Name Role Phone Unavailable Primary Care Provider Unavailabl e Social History Tobacco Use Types Packs/Day Years Used Date Smoking Tobacco: Never Assessed Comments Unknown Sex and Gender Information Value Date Recorded Sex Assigned at Female 09/04/2021 5:04 PM CDT Legal Sex Female 6:35 PM CDT Gender Identity Female 09/04/2021 5:04 PM CDT Sexual Orientation Not on file Plan of Treatment Not on file
--- OUTSIDE RECORDS SUMMARY | 2024-10-02 16:28 | XMS_ITS | Encounter Summary ---
Author Organization [employer] ([place], [place], [place], [place]) Address [address] [place] [address] Care Team Providers [facility] Manager Name Role Phone Unavailable Primary Care Provider Unavailabl e Encounter Details Date Type Department Care Team (Late st Contact Info) Description 07/25/2018 Transcribed Document [facility] Family Medicine [address] [place] [address] ProviderSamia MD [address] [place] [address] Social History Tobacco Use Types Packs/Day Years Used Date Smoking Tobacco: Never Assessed Comments Unknown Sex and Gender Information Value Date Recorded Sex Assigned at Female 09/04/2021 5:04 PM CDT Legal Sex Female 6:35 PM CDT Gender Identity Female 09/04/2021 5:04 PM CDT Sexual Orientation Not on file documented as of this encounter Miscellaneous Notes * Cerner Conversion Note - Samia ProviderMD - 07/25/2018 5:10 [place] [address] WINIFRED SANDERS :1980 Visit Time:07/25/2018 Your Visit Summary Your Care Team Admitting Physician - ALEX BLACKMAN MD-[facility] Attending Physician - ALEX BLACKMAN MD-[facility] Primary Care Physician - JOHANNE ARTIS MD-[facility] Referring Physician - AARON, SELF REFERRED Your Diagnosis Allergic reaction - minor Allergy to peanuts Anxiety reaction Patient Portal Reminder: Be sure to sign up for the [facility] patient portal, which gives you 24/ access to your medical information ??? including these discharge instructions ??? using your computer, smartphone, or tablet. Just go to [email or web address] to get started. Questions? Call . You may also obtain a copy of your Emergency Department visit from Medical Records by calling the hospital phone number listed above and asking to be directed to the Medical Records Department. If you had special tests, such as EKG???s or X-rays, the interpretation of your tests given to you by the Emergency Department Physician is a preliminary report. Some fractures and illnesses fail to show up on preliminary tests. These will be reviewed again and we will call you if there are any new suggestions. If your symptoms continue notify your physician. After you leave, you should follow the instructions provided. What to do next Follow-Up Appointments Follow Up with FOLLOW UP WITH YOUR FAMILY MD GO HOME AND REST DRINK PLENTY WATER . MAY CONTINUE TO USE OVER THE COUNTER BENADRYL OR/AND YOUR INHALER NEEDED. RETURN HERE IF GETTING WORSE When Within 2 to 3 days Follow Up with JOHANNE ARTIS When Within 2 to 3 days Where: [address] [facility] (1) Allergies Peanuts Immunizations This Visit No Immunizations Found Medications The home medications listed are only as accurate as the information you provided. Please continue taking all of your medications prescribed by your Primary Care Provider unless specifically told to change or discontinue the medication. Please direct any questions regarding your home medications to your Primary Care Provider. Take your medications faithfully. Do NOT skip medication. Do NOT stop taking medications without the direction of a physician. Carry a list of your medications with you at all times, and take this medication list with you to your first follow up visit. Report any side effects. Avoid herbal remedies unless discussed with your physician. As part of your treatment plan, your physician may have prescribed a limited course of a controlled substance. This medication may be given to help people with moderate or severe pain or for other medical conditions, but there are risks involved with treatment. Common side effects may include nausea, constipation, drowsiness, sweating, itching, dry mouth, and rash. More serious side effects may include cognitive and motor impairment, like problems with thinking, concentrating, alertness, and movement (e.g. slowed reflexes), and driving and operating heavy machinery can be dangerous. It is important for you to talk to your physician if you have these side effects or questions. These controlled substances can produce physical dependence and be habit-forming if taken for an extended period of time, which means that the body has gotten used to them and may experience withdrawal symptoms if they are abruptly stopped. Withdrawal symptoms can include runny nose, sweating, goose bumps, diarrhea, abdominal cramping, rapid heartbeat, difficulty sleeping, and nervousness. Please dispose of unused and medications per pharmacy guidance. Test Results Laboratory or Other Results This Visit (last charted value for your 07/25/2018 visit) Hematology 07/25/18 14:57:00 WBC: 6.6 K/uL -- Normal range between ( 3.9 and 10.0 ) RBC: 4.37 Million/uL -- Normal range between ( 3.93 and 5.22 ) Hct: 37.9 % -- Normal range between ( 34.1 and 44.9 ) Hgb: 12.9 Gram/dL -- Normal range between ( 11.2 and 15.7 ) Platelet Count: 250 K/uL -- Normal range between ( 163 and 369 ) MCH: 29.5 pg -- Normal range between ( 25.6 and 32.2 ) MCHC: 34.0 Gram/dL -- Normal range between ( 32.3 and 36.5 ) MCV: 86.7 fL -- Normal range between ( 79.0 and 94.8 ) Slide Review: No Eos %: 0.6 % -- Normal range between ( 1.0 and 7.0 ) Millard #: 0.35 K/uL -- Normal range between ( 0.24 and 0.82 ) Eos #: 0.04 K/uL -- Normal range between ( 0.04 and 0.54 ) Millard %: 5.3 % -- Normal range between ( 4.7 and 12.5 ) Baso %: 0.3 % -- Normal range between ( 0.0 and 1.0 ) Baso #: 0.02 K/uL -- Normal range between ( 0.01 and 0.08 ) RDW: 12.7 % -- Normal range between ( 11.6 and 14.4 ) Neut %: 75.8 % -- Normal range between ( 34.0 and 71.0 ) Neut #: 5.04 K/uL -- Normal range between ( 1.56 and 6.13 ) Lymph %: 17.8 % -- Normal range between ( 19.3 and 53.0 ) Lymph #: 1.18 K/uL -- Normal range between ( 1.18 and 3.74 ) MPV: 10.5 fL -- Normal range between ( 9.4 and 12.4 ) IG#: 0 x10(3)/uL IG%: 0 % -- Normal range between ( 0 and 1 ) General Chemistry 07/25/18 14:57:00 Creatinine Level: 0.91 mg/dL -- Normal range between ( 0.55 and 1.02 ) Sodium Level: 141 mmol/L -- Normal range between ( 136 and 146 ) Potassium Level: 3.0 mmol/L -- Normal range between ( 3.5 and 5.1 ) Chloride Level: 108 mmol/L -- Normal range between ( 102 and 112 ) Carbon Dioxide Level: 18 mmol/L -- Normal range between ( 21 and 32 ) Anion Gap: 18 -- Normal range between ( 9 and 20 ) Bilirubin Total: 0.2 mg/dL -- Normal range between ( 0.2 and 1.3 ) A/G Ratio: 1.3 -- Normal range between ( 1.1 and 2.5 ) ALT: 20 Units/Liter -- Normal range between ( 12 and 78 ) AST: 13 Units/Liter -- Normal range between ( 5 and 37 ) Globulin: 3.2 Gram/dL -- Normal range between ( 1.5 and 4.5 ) Alk Phos: 94 Units/Liter -- Normal range between ( 27 and 136 ) Bun/Creatinine: 11.0 -- Normal range between ( 8.0 and 20.0 ) Calcium Level: 9.0 mg/dL -- Normal range between ( 8.5 and 10.1 ) eGFR : >60 mL/min/1.73m2 eGFR NonAfrican: >60 mL/min/1.73m2 Glucose Level: 122 mg/dL -- Normal range between ( 74 and 106 ) Magnesium Level: 1.6 mg/dL -- Normal range between ( 1.5 and 2.4 ) Blood Urea Nitrogen: 10 mg/dL -- Normal range between ( 7 and 22 ) Protein Total: 7.4 Gram/dL -- Normal range between ( 6.4 and 8.2 ) Albumin Level: 4.2 Gram/dL -- Normal range between ( 3.4 and 5.0 ) Education Materials Generalized Anxiety Disorder, Adult Generalized anxiety disorder (FAHAD) is a mental health disorder. People with this condition constantly worry about everyday events. Unlike normal anxiety, worry related to FAHAD is not triggered by a specific event. These worries also do not fade or get better with time. FAHAD interferes with life functions, including relationships, work, and school. FAHAD can vary from mild to severe. People with severe FAHAD can have intense waves of anxiety with physical symptoms (panic attacks). What are the causes? The exact cause of FAHAD is not known. What increases the risk? This condition is more likely to develop in: ??? Women. ??? People who have a family history of anxiety disorders. ??? People who are very shy. ??? People who experience very stressful life events, such as the of a loved one. ??? People who have a very stressful family environment. What are the signs or symptoms? People with FAHAD often worry excessively about many things in their lives, such as their health and family. They may also be overly concerned about: ??? Doing well at work. ??? Being on time. ??? Natural disasters. ??? Friendships. Physical symptoms of FAHAD include: ??? Fatigue. ??? Muscle tension or having muscle twitches. ??? Trembling or feeling shaky. ??? Being easily startled. ??? Feeling like your heart is pounding or racing. ??? Feeling out of breath or like you cannot take a deep breath. ??? Having trouble falling asleep or staying asleep. ??? Sweating. ??? Nausea, diarrhea, or irritable bowel syndrome (IBS). ??? Headaches. ??? Trouble concentrating or remembering facts. ??? Restlessness. ??? Irritability. How is this diagnosed? Your health care provider can diagnose FAHAD based on your symptoms and medical history. You will also have a physical exam. The health care provider will ask specific questions about your symptoms, including how severe they are, when they started, and if they come and go. Your health care provider may ask you about your use of alcohol or drugs, including prescription medicines. Your health care provider may refer you to a mental health specialist for further evaluation. Your health care provider will do a thorough examination and may perform additional tests to rule out other possible causes of your symptoms. To be diagnosed with FAHAD, a person must have anxiety that: ??? Is out of his or her control. ??? Affects several different aspects of his or her life, such as work and relationships. ??? Causes distress that makes him or her unable to take part in normal activities. ??? Includes at least three physical symptoms of FAHAD, such as restlessness, fatigue, trouble concentrating, irritability, muscle tension, or sleep problems. Before your health care provider can confirm a diagnosis of FAHAD, these symptoms must be present more days than they are not, and they must last for six months or longer. How is this treated? The following therapies are usually used to treat FAHAD: ??? Medicine. Antidepressant medicine is usually prescribed for long-term daily control. Antianxiety medicines may be added in severe cases, especially when panic attacks occur. ??? Talk therapy (psychotherapy). Certain types of talk therapy can be helpful in treating FAHAD by providing support, education, and guidance. Options include: ? Cognitive behavioral therapy (CBT). People learn coping skills and techniques to ease their anxiety. They learn to identify unrealistic or negative thoughts and behaviors and to replace them with positive ones. ? Acceptance and commitment therapy (ACT). This treatment teaches people how to be mindful as a way to cope with unwanted thoughts and feelings. ? Biofeedback. This process trains you to manage your body's response (physiological response) through breathing techniques and relaxation methods. You will work with a therapist while machines are used to monitor your physical symptoms. ??? Stress management techniques. These include yoga, meditation, and exercise. A mental health specialist can help determine which treatment is best for you. Some people see improvement with one type of therapy. However, other people require a combination of therapies. Follow these instructions at home: ??? Take [id number] and prescription medicines only as told by your health care provider. ??? Try to maintain a normal routine. ??? Try to anticipate stressful situations and allow extra time to manage them. ??? Practice any stress management or self-calming techniques as taught by your health care provider. ??? Do not punish yourself for setbacks or for not making progress. ??? Try to recognize your accomplishments, even if they are small. ??? Keep all follow-up visits as told by your health care provider. This is important. Contact a health care provider if: ??? Your symptoms do not get better. ??? Your symptoms get worse. ??? You have signs of depression, such as: ? A persistently sad, cranky, or irritable mood. ? Loss of enjoyment in activities that used to bring you dee. ? Change in weight or eating. ? Changes in sleeping habits. ? Avoiding friends or family members. ? Loss of energy for normal tasks. ? Feelings of guilt or worthlessness. Get help right away if: ??? You have serious thoughts about hurting yourself or others. If you ever feel like you may hurt yourself or others, or have thoughts about taking your own life, get help right away. You can go to your nearest emergency department or call: ??? Your local emergency services (911 in the [place] ??? A suicide crisis helpline, such as the National Suicide Prevention Lifeline at . This is open 24 hours a day. Summary ??? Generalized anxiety disorder (FAHAD) is a mental health disorder that involves worry that is not triggered by a specific event. ??? People with FAHAD often worry excessively about many things in their lives, such as their health and family. ??? FAHAD may cause physical symptoms such as restlessness, trouble concentrating, sleep problems, frequent sweating, nausea, diarrhea, headaches, and trembling or muscle twitching. ??? A mental health specialist can help determine which treatment is best for you. Some people see improvement with one type of therapy. However, other people require a combination of therapies. This information is not intended to replace advice given to you by your health care provider. Make sure you discuss any questions you have with your health care provider. Document Released: 06/19/2013 Document Revised: 01/12/2017 Document Reviewed: 01/12/2017 [employer] Patient Education ?? 2019 [employer] Food Allergy A food allergy is when your body reacts to a food in a way that is not normal. The reaction can be gentle or very bad. Signs of a Gentle Reaction ??? Stuffy nose. ??? Tingling in the mouth. ??? An itchy, red rash. ??? Throwing up (vomiting). ??? Watery poop (diarrhea). Signs of a Very Bad Reaction ??? Puffiness (swelling). This may be on the lips, face, or tongue, or in the mouth or throat. ??? Breathing loudly (wheezing). ??? A hoarse voice. ??? Itchy, red, swollen areas of skin (hives). ??? Dizziness or light-headedness. ??? Fainting. ??? Trouble breathing or swallowing. ??? A tight feeling in the chest. ??? A very fast heartbeat. Follow these instructions at home: General instructions ??? Avoid the foods that you are allergic to. ??? Read food labels. Look for ingredients that you are allergic to. ??? When you are at a restaurant, tell your websphere process server developer that you have an allergy. Ask if your meal has an ingredient that you are allergic to. ??? Take medicines only as told by your doctor. Do not drive until the medicine has worn off, unless your doctor says it is okay. ??? Tell all people who care for you that you have a food allergy. This includes your doctor and dentist. ??? If you think that you might be allergic to something else, talk with your doctor. Do not eat a food to see if you are allergic to it without talking with your doctor first. If you have a very bad allergy: ??? Wear a bracelet or necklace that says you have an allergy. ??? Carry your allergy kit (anaphylaxis kit) or an allergy shot (epinephrine injection) with you all the time. Use them as told by your doctor. ??? Make sure that you, your family, and your boss know: ? How to use your allergy kit. ? How to give you an allergy shot. ??? If you use the medicine epinephrine: ? Get more right away in case you have another reaction. ? Get help. You can have a life-threatening reaction after taking the medicine. If you are being tested for an allergy : ??? Follow a diet as told by your doctor. ??? Keep a food diary as told by your doctor. Every day, write down: ? What you eat and drink and when. ? What problems you have and when. Contact a doctor if: ??? The signs of your reaction have not gone away within 2 days. ??? The signs of your reaction get worse. ??? You have new signs of a reaction. Get help right away if: ??? You use the medicine epinephrine. ??? You are having a very bad reaction. Signs of a very bad reaction are: ? Puffiness. This may be on the lips, face, or tongue, or in the mouth or throat. ? Breathing loudly. ? A hoarse voice. ? Itchy, red swollen areas of skin. ? Dizziness or light-headedness. ? Fainting. ? Trouble breathing or swallowing. ? A tight feeling in the chest. ? A very fast heartbeat. This information is not intended to replace advice given to you by your health care provider. Make sure you discuss any questions you have with your health care provider. Document Released: 08/12/2010 Document Revised: 07/30/2016 Document Reviewed: 12/04/2014 [employer] Patient Education ?? 2019 [employer]. Asthma, Adult Asthma is a long-term (chronic) condition in which the airways get tight and narrow. The airways are the breathing passages that lead from the nose and mouth down into the lungs. A person with asthma will have times when symptoms get worse. These are called asthma attacks. They can cause coughing, whistling sounds when you breathe (wheezing), shortness of breath, and chest pain. They can make it hard to breathe. There is no cure for asthma, but medicines and lifestyle changes can help control it. There are many things that can bring on an asthma attack or make asthma symptoms worse (triggers). Common triggers include: ??? Mold. ??? Dust. ??? Cigarette smoke. ??? Cockroaches. ??? Things that can cause allergy symptoms (allergens). These include animal skin flakes (dander) and pollen from trees or grass. ??? Things that pollute the air. These may include household auto radio mechanic, wood smoke, smog, or chemical odors. ??? Cold air, weather changes, and wind. ??? Crying or laughing hard. ??? Stress. ??? Certain medicines or drugs. ??? Certain foods such as dried fruit, potato chips, and grape juice. ??? Infections, such as a cold or the flu. ??? Certain medical conditions or diseases. ??? Exercise or tiring activities. Asthma may be treated with medicines and by staying away from the things that cause asthma attacks. Types of medicines may include: ??? Controller medicines. These help prevent asthma symptoms. They are usually taken every day. ??? Fast-acting reliever or rescue medicines. These quickly relieve asthma symptoms. They are used as needed and provide short-term relief. ??? Allergy medicines if your attacks are brought on by allergens. ??? Medicines to help control the body's defense (immune) system. Follow these instructions at home: Avoiding triggers in your home ??? Change your heating and air conditioning filter often. ??? Limit your use of fireplaces and wood stoves. ??? Get rid of pests (such as roaches and mice) and their droppings. ??? Throw away plants if you see mold on them. ??? Clean your floors. Dust regularly. Use cleaning products that do not smell. ??? Have someone vacuum when you are not home. Use a vacuum coil cleaner with a HEPA filter if possible. ??? Replace carpet with wood, tile, or vinyl teresita. Carpet can trap animal skin flakes and dust. ??? Use allergy-proof pillows, mattress covers, and box spring covers. ??? Wash bed sheets and blankets every week in hot water. Dry them in a dryer. ??? Keep your bedroom free of any triggers. ??? Avoid pets and keep windows closed when things that cause allergy symptoms are in the air. ??? Use blankets that are made of polyester or cotton. ??? Clean bathrooms and rekha with bleach. If possible, have someone repaint the valdes in these rooms with mold-resistant paint. Keep out of the rooms that are being cleaned and painted. ??? Wash your hands often with soap and water. If soap and water are not available, use hand master ship. ??? Do not allow anyone to smoke in your home. General instructions ??? Take [id number] and prescription medicines only as told by your doctor. ? Talk with your doctor if you have questions about how or when to take your medicines. ? Make note if you need to use your medicines more often than usual. ??? Do not use any products that contain nicotine or tobacco, such as cigarettes and e-cigarettes. If you need help quitting, ask your doctor. ??? Stay away from secondhand smoke. ??? Avoid doing things outdoors when allergen counts are high and when air quality is low. ??? Wear a ski mask when doing outdoor activities in the winter. The mask should cover your nose and mouth. Exercise indoors on cold days if you can. ??? Warm up before you exercise. Take time to cool down after exercise. ??? Use a peak flow meter as told by your doctor. A peak flow meter is a tool that measures how well the lungs are working. ??? Keep track of the peak flow meter's readings. Write them down. ??? Follow your asthma action plan. This is a written plan for taking care of your asthma and treating your attacks. ??? Make sure you get all the shots (vaccines) that your doctor recommends. Ask your doctor about a flu shot and a pneumonia shot. ??? Keep all follow-up visits as told by your doctor. This is important. Contact a doctor if: ??? You have wheezing, shortness of breath, or a cough even while taking medicine to prevent attacks. ??? The mucus you cough up (sputum) is thicker than usual. ??? The mucus you cough up changes from clear or white to yellow, green, menezes, or bloody. ??? You have problems from the medicine you are taking, such as: ? A rash. ? Itching. ? Swelling. ? Trouble breathing. ??? You need reliever medicines more than 2???3 times a week. ??? Your peak flow reading is still at 50???79% of your personal best after following the action plan for 1 hour. ??? You have a fever. Get help right away if: ??? You seem to be worse and are not responding to medicine during an asthma attack. ??? You are short of breath even at rest. ??? You get short of breath when doing very little activity. ??? You have trouble eating, drinking, or talking. ??? You have chest pain or tightness. ??? You have a fast heartbeat. ??? Your lips or fingernails start to turn blue. ??? You are light-headed or dizzy, or you faint. ??? Your peak flow is less than 50% of your personal best. ??? You feel too tired to breathe normally. Summary ??? Asthma is a long-term (chronic) condition in which the airways get tight and narrow. An asthma attack can make it hard to breathe. ??? Asthma cannot be cured, but medicines and lifestyle changes can help control it. ??? Make sure you understand how to avoid triggers and how and when to use your medicines. This information is not intended to replace advice given to you by your health care provider. Make sure you discuss any questions you have with your health care provider. Document Released: 08/10/2008 Document Revised: 03/29/2017 Document Reviewed: 03/29/2017 [employer] Patient Education ?? 2019 [employer]. Emergency Awareness and Preventative Care STROKE is an EMERGENCY Every Minute Counts Act FAST and Check for these signs: FACE Does the face look uneven? ARM Does one arm drift down? SPEECH Does their speech sound strange? TIME Call at any sign of stroke Stroke Risk Factors Atrial Fibrillation (irregular heartbeat) Diabetes Family history of stroke Heart Disease Heavy alcohol use High Blood Pressure High Cholesterol Physical inactivity and obesity Smoking Cigarette Smoking The facts are clear, cigarette smoking will shorten your life. Smoking can cause many illnesses along the way. As a healthcare provider, we recommend that you stop smoking. Assistance with quitting is available by contacting 2-271-PWZN-NOW. This is a free resource providing counseling, support, and referral. Or you may contact your personal physician. National Suicide Prevention Lifeline: The National Suicide Prevention Lifeline is a national network of local crisis centers that provides free and confidential emotional support to people in suicidal crisis or emotional distress 24 hours a day, 7 days a week. Don't Wait! Stop a Heart Attack Before it Starts What is a heart attack? A heart attack is damage or to a part of the heart from severely decreased or lack of blood flow to the heart. Over time, arteries can become narrow from the buildup of fat and cholesterol, which is called plaque. The plaque can rupture causing a blood clot to form. When the blood clot forms, the artery can become severely narrowed or completely blocked, causing a heart attack. Heart attack is the leading cause of in the [place]. 85% of muscle damage occurs within the first 2 hours. Delay in the recognition of heart attack symptoms increases the chances of . Know the early symptoms of a heart attack: Nausea Feeling of fullness in chest Jaw Pain Pain that travels down one or both arms Fatigue/being tired Anxiety Back Pain Chest pressure, squeezing, or discomfort Shortness of breath Sweating, or a cold sweat Feeling of impending doom There are unusual signs of a heart attack, too! Women, the elderly, and diabetics may present with atypical symptoms: Fainting/dizziness Weakness Confusion Risk Factors for a Heart Attack Some heart disease risk factors, such as age and family history, cannot be changed. Others, like smoking and lack of exercise, can be changed. Smoking High Cholesterol High Blood Pressure Family History Obesity Age Gender (Males are at higher risk) Lack of Exercise Diabetes Diet Stress Excessive Alcohol Intake If you or someone you know is experiencing the signs and symptoms of a heart attack, DON???T DELAY. Call immediately and seek help. If someone collapses, perform CPR! Do not attempt to drive if you are having symptoms of heart attack. Hands-Only CPR Why Hands-Only CPR? Hands-Only CPR has been shown to be as effective as conventional CPR for cardiac arrests that occur outside of a hospital. Survival depends on immediately receiving CPR from someone nearby. How do you perform Hands-Only CPR? There are two easy steps: Call if you see a teen or adult collapse Push hard and fast in the center of the chest at a beat of 100 beats per minute. Save a life! 4 WAYS TO GET AHEAD OF SEPSIS SEPSIS is a MEDICAL EMERGENCY. Time matters! Infections put you and your family at risk for a life-threatening condition called sepsis. Sepsis is the body's extreme response to an infection. It is life-threatening, and without timely treatment, sepsis can rapidly lead to tissue damage, organ failure, and . Sepsis happens when an infection you already have-in your skin, lungs, urinary tract or somewhere else-triggers a chain reaction throughout your body. 1 PREVENT INFECTIONS Take good care of chronic conditions. Talk to your doctor about getting the recommended vaccines. 2 PRACTICE GOOD HYGIENE Wash your hands frequently. Keep cuts or open sores clean and covered until they are healed. 3 KNOW THE SYMPTOMS Confusion or disorientation Shortness of breath High heart rate Fever, shivering, or feeling very cold Extreme pain or discomfort Clammy or sweaty skin 4 ACT FAST Get medical care IMMEDIATELY if you suspect sepsis or if you have an infection that is not getting better or is getting worse. To learn more about sepsis and how to prevent infections, visit www.cdc.gov/sepsis. The examination and treatment you have received in the Emergency Department has been done to provide an appropriate evaluation and stabilizing treatment on an emergency basis only. Given the limited resources, it is not meant to be a substitute for complete medical care. The follow-up doctor you named will receive a copy of your records and all test reports. IT IS IMPORTANT THAT YOU SCHEDULE A FOLLOW-UP APPOINTMENT AND ARE RE-EVALUATED. You should report any new complaints, symptoms, or remaining problems at that time. IT IS IMPOSSIBLE FOR THE EMERGENCY DEPARTMENT TO RECOGNIZE AND TREAT ALL ELEMENTS OF INJURY OR ILLNESS IN A SINGLE VISIT. If you have been referred to a specialist physician, it means that we believe you may have a condition that requires the expertise of a specialist. These physicians work in partnership with the hospital and have agreed to see referred patients in their office for further evaluation. KEEP IN MIND THAT THE SPECIALIST HAS HIS/HER OWN OFFICE POLICIES WHICH MAY REQUIRE PROPER INSURANCE OR PAYMENT UP FRONT BEFORE THE SPECIALIST WILL SEE YOU. It is your responsibility to call the specialist physician to make an appointment. We do not have the ability to refer patients to specialists/physicians that work with specific insurance companies. Please be advised that all financial charges or billing practices are determined by that practice, not the hospital. If your insurance company requires that you see a specialist from their approved list, it is your responsibility to contact your insurance company to make those arrangements. It is also your responsibility to follow any other requirements of your insurance company necessary to obtain coverage for claims submitted. We will bill your insurance; however, you are responsible today for any co-pay amounts. You will receive a separate bill for any services you may have received including: emergency, radiology, or pathology physicians. Patient Name:WINIFRED SANDERS I have received this information and was given the opportunity to ask questions. 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 Date: documented in this encounter Plan of Treatment Not on file documented as of this encounter Visit Diagnoses Not on filedocumented in this encounter
--- OUTSIDE RECORDS SUMMARY | 2024-10-02 16:28 | XMS_ITS | Encounter Summary ---
Author Organization [email or web address] ([place], [place], [place], [place]) Address [address] [place] [address] Care Team Providers Care Installer Name Role Phone Unavailable Primary Care Provider Unavailabl e Encounter Details Date Type Department Care Team (Late st Contact Info) Description 07/25/2018 Transcribed Document [facility] [place] Family Medicine [address] [place] [address] ProviderSamia MD [address] [place] [address] Social History Tobacco Use Types [...] Conversion Note - Historical ProviderMD - 07/25/2018 1:47 PM CDT ED Assessment Entered On: 07/25/2018 14:33 EDT Performed On: 07/25/2018 14:28 EDT by Austyn Russell Rn ED Quick Look Assessment Level of Consciousness : Alert, Awake Affect/Behavior : Appropriate, Anxious, Other: RR's increased, patient appears to be having a panic attack. VSS with SP02 above 95% AAT's on room air. Patient here for possible allergic reaction to a peanut that was in room at work. Orientation : Oriented x 4 Skin Color : Other: Pale Skin Description : Normal for ethnicity Austyn Russell Rn - 07/25/2018 14:28 EDT ED General-Functional Assess Information Obtained From : Patient Preferred Communication Mode : Verbal Communication Barrier : None Primary Language : Colombian Any Spiritual/Cultural Needs or Requests : No Currently in Unsafe Situation : No Austyn Russell Rn - 07/25/2018 14:28 EDT Social Habits Smoking Status : 10 or more cigarettes (1/2 pack or more)/day in last 30 days Smokeless Tobacco Status : Refused tobacco status screen Desires Tobacco Cessation Medication : No Reason for No Tobacco Cessation Medication : ED/procedural patient only Desires Tobacco Cessation Calc : 1 Austyn Russell Rn - 07/25/2018 14:28 EDT Social History (As Of: 07/25/2018 14:33:20 EDT) Respiratory Respiratory Assessment Comment : No audible wheezing noted- SP02 >95% on RA. Family at bedside. Pt VSS at this time. Asutyn Russell Rn - 07/25/2018 14:28 EDT Electronically signed by Felipa Villarreal Conversion Human Services Program Specialist Cerner at 06/26/2022 6:27 PM CDT documented in this encounter Plan of Treatment Not on file documented as of this encounter Visit Diagnoses Not on filedocumented in this encounter
--- OUTSIDE RECORDS SUMMARY | 2024-10-02 16:28 | XMS_ITS | Clinical Summary ---
Author Organization [employer] ([place], [place], [place], [place]) Address [address] [place] [address] Care Team Providers Care Development Intern Name Role Phone Unavailable Primary Care Provider [...]
--- OUTSIDE RECORDS SUMMARY | 2024-10-02 16:28 | XMS_ITS | Encounter Summary ---
Author Organization [employer] ([place], [place], [place], [place]) Address [address] [place] [address] Care Team Providers Care Rail Car Mechanic Name Role Phone Unavailable Primary Care Provider Unavailabl e Encounter Details Date Type Department Care Team (Late st Contact Info) Description 07/25/2018 Transcribed Document [facility] [place] Family Medicine [address] [place] [address] ProviderSamia MD [address] [place] [address] Social History Tobacco Use Types [...] ProviderMD - 07/25/2018 1:47 PM CDT ED Triage Entered On: 07/25/2018 14:02 EDT Performed On: 07/25/2018 13:56 EDT by YUNG DIETZ RN ED Triage Across the Room Triage Date/Time : 07/25/2018 13:56 EDT Chief Complaint : pt with allergic reaction , was in a room with peanut, did not ingest or touch, gave her epi and took 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 p/w/d. pt breathing fast with o2 sats 100% YUNG DIETZ RN - 07/25/2018 13:56 EDT DCP GENERIC CODE Tracking Acuity : 3 - Urgent Tracking Group : [facility] YUNG DIETZ RN - 07/25/2018 13:56 EDT Mode of Arrival : Ambulatory Transported to ED by : Private vehicle To Room Via : Ambulate Accompanied By : Friend ED Vital Signs : Document Height & Weight : Document ED Allergies : Document ED Reason for Visit : Document Tetanus Immunization : Unknown YUNG DIETZ RN - 07/25/2018 13:56 EDT Infectious Disease History Infectious Disease History : None Fever/Chills Last 48 Hours : No Travel To Regions with Travel Advisories : No Travel Outside [place] Within Last 30 Days : No Contact With Traveler to Advisory Region : No Tuberculosis Symptoms : None YUNG DIETZ RN - 07/25/2018 13:56 EDT Vital Signs ED Temperature Source : Oral Temperature Mode : Fahrenheit Temperature, Fahrenheit : 97.9 Deg F ED Pain : No Clinical Temperature, C : 36.6 Deg C Oxygen Therapy Mode : Room air Peripheral Pulse Rate : 109 bpm (HI) Respiratory Rate : 22 Breaths/Min (HI) Systolic Blood Pressure : 130 mmHg Diastolic Blood Pressure : 61 mmHg Oxygen Saturation : 100 % YUNG DIETZ RN - 07/25/2018 13:56 EDT Allergy (As Of: 07/25/2018 14:02:01 EDT) Allergies (Active) Peanuts Estimated Onset Date: Unspecified ; Created By: YUNG DIETZ RN; Reaction Status: Active ; Category: Food ; Substance: Peanuts ; Type: Allergy ; Updated By: YUNG DIETZ RN; Reviewed Date: 07/25/2018 14:01 EDT Diagnosis Control ED (As Of: 07/25/2018 14:02:01 EDT) Problems(Active) Asthma (SNOMED CT :055261638 ) Name of Problem: Asthma ; Recorder: YUNG DIETZ RN; Confirmation: Confirmed ; Classification: Medical ; Code: [id number] ; Contributor System: [employer] ; Last Updated: 07/25/2018 14:00 EDT ; Life Cycle Date: 07/25/2018 ; Life Cycle Status: Active ; Vocabulary: SNOMED CT Migraine (SNOMED CT :06759028 ) Name of Problem: Migraine ; Recorder: YUNG DIETZ RN; Confirmation: Confirmed ; Classification: Medical ; Code: [id number] ; Contributor System: [employer] ; Last Updated: 07/25/2018 14:00 EDT ; Life Cycle Date: 07/25/2018 ; Life Cycle Status: Active ; Vocabulary: SNOMED CT Diagnoses(Active) Allergic reaction - minor Date: 07/25/2018 ; Diagnosis Type: Reason For Visit ; Confirmation: Complaint of ; Clinical Dx: Allergic reaction - minor ; Classification: Medical ; Clinical Service: Emergency medicine ; Code: PNED ; Probability: 0 ; Diagnosis Code: [id number] ED Height and Weight Height Source : Stated Height Entry Format : Rebuck Height, Feet : 5 ft(Converted to: 152 cm, 60 Inch) Height, Inches : 6 Inch(Converted to: 0 ft 6 Inch, 15.24 cm) Clinical Height : 167.64 cm Weight Source, ED : Standing scale Weight Entry Format : Rebuck Weight, Pounds : 150 lb Clinical Dosing Weight : 68.18 kg Body Surface Area (BSA) : 1.77 m2 Body Mass Index : 24.3 kg/m2 (HI) [place] Body Weight (IBW) : 58.88 kg YUNG DIETZ RN - 07/25/2018 13:56 EDT ED Influenza/Pneumoccocal Vaccine Influenza Immunization, Current Season : Unknown Previous Vaccines from Immunization Schedule : No qualifying data available. YUNG DIETZ RN - 07/25/2018 13:56 EDT documented in this encounter Plan of Treatment Not on file documented as of this encounter Visit Diagnoses Not on filedocumented in this encounter
--- OUTSIDE RECORDS SUMMARY | 2024-10-02 16:28 | XMS_ITS | Encounter Summary ---
Author Organization [employer] ([place], [place], [place], [place]) Address [address] [place] [address] Care Team Providers Care Rotary Drum Tanner Name Role Phone Unavailable Primary Care Provider Unavailabl e Encounter Details Date Type Department Care Team (Late st Contact Info) Description 07/25/2018 Transcribed Document [facility] [place] [address] [place] [address] ProviderSamia MD [address] [place] [id number] Social History Tobacco Use Types Packs/Day Years [...] Conversion Note - Historical ProviderMD - 07/25/2018 4:51 PM CDT Electronically signed by Cherelle Ranken [facility] Conversion [employer]mer [employer] at 06/26/2022 6:20 PM CDT documented in this encounter Plan of Treatment Not on file documented as of this encounter Visit Diagnoses Not on filedocumented in this encounter
--- NOTE | 2024-10-02 16:49 | XR_ITS ---
PROCEDURE INFORMATION: Exam: XR Right Foot Complete; Alignment Exam date and time: 10/02/2024 4:50 PM Age: 44 years old Clinical indication: Pain and injury or trauma; Work related; Sprain or strain; Injury date: 09/28/24; Fall , injured right foot at work , HX of surgery to ankle and foot x twice; Additional info: Right ankle injury TECHNIQUE: Imaging protocol: Radiologic exam of the right foot. Views: 3 or more views. COMPARISON: CR XR FOOT WT BEARING RT 3V 07/04/2019 8:15 AM FINDINGS: Bones/joints: No acute fracture or malalignment. Hallux valgus alignment with mild 1st MTP joint degenerative changes. Postsurgical changes of distal fibula plate and screw fixation and syndesmotic repair. Suture anchors within the medial/lateral malleolar and navicular. Calcaneal enthesopathy. Soft tissues: Unremarkable. IMPRESSION: No acute osseous findings.
--- NOTE | 2024-10-02 16:49 | XR_ITS ---
PROCEDURE INFORMATION: Exam: XR Left Foot Complete; Alignment Exam date and time: 10/02/2024 4:50 PM Age: 44 years old Clinical indication: Pain; Foot; Left; Additional info: Left ankle injury from fall TECHNIQUE: Imaging protocol: Radiologic exam of the left foot. Views: 3 or more views. COMPARISON: FINDINGS: Bones/joints: No acute fracture or malalignment. Hallux valgus with minimal 1st MTP joint degenerative changes. Calcaneal enthesopathy. Soft tissues: Unremarkable. IMPRESSION: No acute osseous findings.
== END 2024-10-02 23:59 | disposition home or self-care (01) ==
LOC: RAD 16:27
PROVIDERS: PCP Nurse Practitioner Family; Visit Provider Nurse Practitioner Family
DX: S99.912A Unspecified injury of left ankle, initial encounter (principal); S99.911A Unspecified injury of right ankle, initial encounter; M19.072 Primary osteoarthritis, left ankle and foot; M19.071 Primary osteoarthritis, right ankle and foot; M77.32 Calcaneal spur, left foot; M77.31 Calcaneal spur, right foot; Z96.698 Presence of other orthopedic joint implants; W19.XXXA Unspecified fall, initial encounter; Y99.0 Civilian activity done for income or pay
CPT/HCPCS: 73630

== ENCOUNTER 2025-01-23 12:11 | Outpatient (CLI) | payer OTHER, SELFPAY ==
--- OUTSIDE RECORDS SUMMARY | 2025-01-04 11:53 | XMS_ITS | Encounter Summary ---
Author Organization [employer] ([place], [place], [place], [place], [place]) Address [address] [place] [address] Care Team Providers Care Picture Copyist Name Role Phone Radha Gonzalez APRN Primary Care Provider [phone] Encounter Details Date Type Department Care Team (Latest Contact Info) Description 01/04/2025 12:53 PM EDT - 01/04/2025 11:59 PM EDT Hospital Encounter [facility] Preadmission Testing [address] [facility] [address] [place] [address] Radha Gonzalez APRN [address] [place] [address] [id number] Preop examination (Primary Dx) Discharge Disposition: Home or Self Care Social History Tobacco Use Types Packs/Day Years Used Date Smoking Tobacco: Never Smokeless Tobacco: Never Tobacco Cessation:Counseling Given: Not Answered Alcohol Use Standard Drinks/Week Comments Not Currently 0 (1 standard drink = 0.6 oz pur e alcohol) Comments Unknown Sex and Gender Information Value Date Recorded Sex Assigned at Female 09/04/2021 5:04 PM CDT Legal Sex Female 6:35 PM CDT Gender Identity Female 09/04/2021 5:04 PM CDT Sexual Orientation Not on file documented as of this encounter Last Filed Vital Signs Vital Sign Reading Time Taken Comments Blood Pressure 143/65 01/04/2025 1:08 PM EDT Pulse 106 01/04/2025 1:08 PM EDT Temperature 37.2 C (99 F) 01/04/2025 1:08 PM EDT Respiratory Rate 18 01/04/2025 1:08 PM EDT Oxygen Saturation 98% 01/04/2025 1:08 PM EDT Inhaled Oxygen Concentration - - Weight 90.7 kg (200 lb) 01/04/2025 1:08 PM EDT Height 160 cm (5' 3 ) 01/04/2025 1:08 PM EDT Body Mass Index 35.43 01/04/2025 1:08 PM EDT documented in this encounter Medications at Time of Discharge acetaminophen (TYLENOL) 500 MG tablet Take 1 tablet (500 mg total) by mouth every 6 (six) hours as needed for pain. albuterol 90 mcg/actuation inhaler Inhale by mouth every 6 (six) hours as needed for wheezing. amitriptyline (ELAVIL) 50 MG tablet Take 1 tablet (50 mg total) by mouth nightly. 10/25/2024 azelastine (ASTELIN) 137 mcg (0.1 %) nasal spray Administer 1 spray into each nostril 2 (two) times daily Use in each nostril as directed. beclomethasone dipropionate (QVAR INHL) Inhale 2 puffs by mouth 2 (two) times daily. diphenhydrAMINE (BENADRYL) 25 mg capsule Take 1 capsule (25 mg total) by mouth every 6 (six) hours as needed for itching. EPINEPHrine 0.3 mg/0.3 mL syrg Inject as directed. ibuprofen (MOTRIN) 800 MG tablet Take 1 tablet (800 mg total) by mouth 2 (two) times daily. levocetirizine (XYZAL) 5 MG tablet Take 1 tablet (5 mg total) by mouth every evening. montelukast (SINGULAIR) 10 mg tablet Take 1 tablet (10 mg total) by mouth nightly. multivitamin per tablet Take 1 tablet by mouth daily. norgestimate-ethin yl estradioL (ORTHO-CYCLEN) 0.25-0.035 mg per tablet Take 1 tablet by mouth daily. 12/07/2024 Nurtec ODT 75 mg TbDL Take 1 tablet by mouth every other day. 11/24/2024 OXcarbazepine (TRILEPTAL) 300 MG tablet Take 1 tablet (300 mg total) by mouth 3 (three) times daily. 12/30/2024 pantoprazole (PROTONIX) 20 MG tablet Take 1 tablet (20 mg total) by mouth daily. 12/08/2024 documented as of this encounter H&P Notes * Francois Zeng PA-C - 01/04/2025 1:00 PM EDT History & Physical Chief Complaint / Reason for Visit: preoperative exam History Of Present Illness Winifred Sanders is a pleasant 44 y.o. female who presents prior to Procedure Laterality Anesthesia LEFT ACHILLES REPAIR WITH GRAFT, LEFT CALC SPUR RESECTION, GASTROC RECESSION LEFT Left General w/Block EXCISION, BONE, FOOT Left General w/Block RECESSION, MUSCLE, GASTROCNEMIUS Left General w/Block due to spontaneous rupture of flexor tendon of the left lower leg, left foot pain, acquired extremal rotation of foot, and calcaneal spur of left foot w/ Dr. Reno Whalen. Past Medical History Pertinent Positives: She has a past medical history of Anesthesia complication, Arthritis, Asthma, Migraines, Seasonal allergies, and Trigeminal neuralgia. Pertinent Negatives: No history of VTE, PE, malignant hyperthermia Pertinent Positives: Patient reports waking up during prior right foot surgery during 2020; Denies any other previous complications with anesthesia Surgical History She has a past surgical history that includes RIGHT FOOT SURGERY (Right) and Tubal ligation. Social History She reports that she has never smoked. She has never used smokeless tobacco. She reports that she does not currently use alcohol. She reports that she does not use drugs. Family History Her family history is not on file. Patient states she did not know her mother or father and unsure of family medical history Allergies Peanut Medications Current Outpatient Medications Medication Instructions acetaminophen (TYLENOL) 500 mg, oral, Every 6 hours PRN albuterol 90 mcg/actuation inhaler inhalation, Every 6 hours PRN amitriptyline (ELAVIL) 50 mg, Every Night azelastine (ASTELIN) 137 mcg (0.1 %) nasal spray 1 spray, each nostril, 2 times daily, Use in each nostril as directed beclomethasone dipropionate (QVAR INHL) 2 puffs, inhalation, 2 times daily diphenhydrAMINE (BENADRYL) 25 mg, oral, Every 6 hours PRN EPINEPHrine 0.3 mg/0.3 mL syrg injection ibuprofen (MOTRIN) 800 mg, oral, 2 times daily levocetirizine (XYZAL) 5 mg, oral, Every evening montelukast (SINGULAIR) 10 mg, oral, Every Night multivitamin per tablet 1 tablet, oral, Daily norgestimate-ethinyl estradioL (ORTHO-CYCLEN) 0.25-0.035 mg per tablet 1 tablet, Daily Nurtec ODT 75 mg TbDL 1 tablet, Every other day OXcarbazepine (TRILEPTAL) 300 mg, 3 times daily pantoprazole (PROTONIX) 20 mg, Daily Review of Systems Endorses left foot pain Denies chest pain, palpitations, or SOB. METS >4. Denies headaches, dizziness, and falls. Denies cough, Denies fever. Denies NVD. Denies easy bleeding or bruising. Denies recent illnesses. Denies sick contacts. Comprehensive ROS is otherwise negative. Vitals Blood pressure (!) 143/65, pulse 106, temperature 99 ??F (37.2 ??C), temperature source Tympanic, resp. rate 18, height 1.6 m (5' 3 ), weight 90.7 kg (200 lb), SpO2 98%. Physical Exam Constitutional: She is oriented to person, place, and time. HENT: Head: Normocephalic. Eyes: Pupils are equal, round, and reactive to light. Cardiovascular: Regular rhythm. Tachycardia present. Abdominal: Soft. Musculoskeletal: Cervical back: Normal range of motion. Comments: Left walking boot Neurological: She is alert and oriented to person, place, and time. Skin: Skin is warm and dry. Patient with noted tachycardia (pulse 106). Rate of 99 on EKG. Patient reports white coat syndrome and was nervous about obtaining lab work today. Laboratory and Diagnostics Diagnostic Results Hospital Outpatient Visit on 01/04/2025 Component Date Value Ref Range Status WBC 01/04/2025 5.8 3.9 - 10.0 K/??L Final RBC 01/04/2025 4.15 3.93 - 5.22 M/??L Final Hemoglobin 01/04/2025 11.3 11.2 - 15.7 GM/DL Final Hematocrit 01/04/2025 35.1 34.1 - 44.9 % Final MCV 01/04/2025 85 79 - 95 fL Final MCH 01/04/2025 27.2 25.6 - 32.2 pg Final MCHC 01/04/2025 32.2 32.2 - 36.5 GM/DL Final RDW 01/04/2025 14.2 11.6 - 14.4 % Final Platelets 01/04/2025 280 163 - 369 K/CU MM Final MPV 01/04/2025 10.1 9.4 - 12.4 fL Final % Neutros 01/04/2025 56 34 - 71 % Final % Lymphs 01/04/2025 28 19 - 53 % Final % Monos 01/04/2025 7 4 - 13 % Final % Eos 01/04/2025 7.5 (H) 1.0 - 7.0 % Final % Baso 01/04/2025 1 0 - 1 % Final # Neutros 01/04/2025 3.24 1.56 - 6.13 K/??L Final # Lymphs 01/04/2025 1.63 1.18 - 3.74 K/??L Final # Monos 01/04/2025 0.40 0.24 - 0.82 K/??L Final # Eos 01/04/2025 0.43 0.04 - 0.54 K/??L Final # Baso 01/04/2025 0.03 0.01 - 0.08 K/??L Final % Imm Grans 01/04/2025 0.30 0.00 - 0.60 % Final # IG 01/04/2025 0.02 0.00 - 0.05 K/uL Final Sodium 01/04/2025 136 136 - 146 meq/L Final Potassium 01/04/2025 4.0 3.5 - 5.1 meq/L Final Chloride 01/04/2025 105 102 - 112 meq/L Final CO2 01/04/2025 27 21 - 32 meq/L Final Calcium 01/04/2025 8.8 8.5 - 10.1 mg/dL Final Glucose 01/04/2025 102 (H) 74 - 100 mg/dL Final BUN 01/04/2025 9 7 - 22 mg/dL Final Creatinine 01/04/2025 0.81 0.55 - 1.02 mg/dL Final BUN/Creatinine 01/04/2025 11 8 - 20 Final Albumin 01/04/2025 3.5 3.4 - 5.0 g/dL Final Alkaline Phosphatase 01/04/2025 115 27 - 136 U/L Final ALT 01/04/2025 18 12 - 78 U/L Final AST 01/04/2025 15 5 - 37 U/L Final Total Bilirubin 01/04/2025 0.2 0.2 - 1.3 mg/dL Final Protein, Total 01/04/2025 7.1 6.4 - 8.2 gm/dL Final Anion Gap 01/04/2025 8 (L) 9 - 20 Final A/G Ratio 01/04/2025 1.0 (L) 1.1 - 2.5 Final Globulin 01/04/2025 3.6 1.5 - 4.5 g/dL Final Osmolality Calc 01/04/2025 270.8 mOsm/kg Final eGFR (mL/min/1.73m2) 01/04/2025 >60 >=60 mL/min/1.73m2 Final VENTRICULAR RATE EKG/MIN 01/04/2025 99 BPM Incomplete ATRIAL RATE (MCT) 01/04/2025 99 BPM Incomplete DC Interval 01/04/2025 182 ms Incomplete QRS-INTERVAL (MSEC) 01/04/2025 84 ms Incomplete QT Interval 01/04/2025 332 ms Incomplete QTC Interval 01/04/2025 426 ms Incomplete P [place] 01/04/2025 52 degrees Incomplete R AXIS (MCT) 01/04/2025 71 degrees Incomplete T Wave [place] 01/04/2025 47 degrees Incomplete [place] Diagnosis 01/04/2025 Incomplete Value:Normal sinus rhythm Normal ECG No image results found. Assessment and Plan Assessment & Plan Active Problems: There are no active Hospital Problems. #Preop evaluation for LEFT ACHILLES REPAIR WITH GRAFT, LEFT CALC SPUR RESECTION, GASTROC RECESSION LEFT EXCISION, BONE, FOOT RECESSION, MUSCLE, GASTROCNEMIUS - Winifred Tracye Sanders underwent preoperative laboratory workup and diagnostic studies as above. - Patient offered surgical intervention as above. Instructed to discontinue NSAIDs 10 days preoperatively, and transition to APAP/narcotics, if prescribed. #Migraines #Trigeminal Neuralgia - Continue Trileptal until night before surgery - Continue Amitriptyline and Nurtec until night before surgery #GERD - Continue Pantoprazole until night before surgery #Allergies - Continue Singulair, Xyzal, and Azelastine nasal spray until night before surgery #Asthma - Continue Albuterol and QVAR inhaler, bring with you day of surgery #Hormone Replacement Therapy Continue norgestimate-ethinyl estradiol until night before surgery EKG 01/04/2025 as interpreted by this provider as NSR, rate of 99. STOP-BAN RCRI: 0 Anesthesia Complications: Patient reports waking up during prior right foot surgery DVT/PE hx: None Pt is low to intermediate risk for low risk surgery. May proceed with scheduled procedure with Dr. Whalen. Electronically signed by: Francois Zeng PA-C, 01/04/2025 Attending: Dr. Moseley Cosigned by Ronald Moseley DO at 01/05/2025 10:17 PM EDT documented in this encounter Procedure Notes * Noyr Garza RN - 01/04/2025 1:00 PM EDTSummary: MEDICATION INSTRUCTIONS Medication List ASK your doctor about these medications acetaminophen 500 MG tablet Commonly known as: TYLENOL Medication Adjustments for Surgery: Continue until night before surgery albuterol 90 mcg/actuation inhaler Medication Adjustments for Surgery: Other (Comment) Notes to patient: BRING WITH YOU DAY OF SURGERY amitriptyline 50 MG tablet Commonly known as: ELAVIL Medication Adjustments for Surgery: Continue until night before surgery azelastine 137 mcg (0.1 %) nasal spray Commonly known as: ASTELIN Medication Adjustments for Surgery: Continue until night before surgery diphenhydrAMINE 25 mg capsule Commonly known as: BENADRYL Medication Adjustments for Surgery: Continue until night before surgery EPINEPHrine 0.3 mg/0.3 mL Syrg Medication Adjustments for Surgery: Other (Comment) Notes to patient: USE NEEDED ibuprofen 800 MG tablet Commonly known as: MOTRIN Medication Adjustments for Surgery: Other (Comment) Notes to patient: STOP ON 01/07/25 levocetirizine 5 MG tablet Commonly known as: XYZAL Medication Adjustments for Surgery: Continue until night before surgery montelukast 10 mg tablet Commonly known as: SINGULAIR Medication Adjustments for Surgery: Continue until night before surgery multivitamin per tablet Medication Adjustments for Surgery: Other (Comment) Notes to patient: STOP ON 01/07/25 norgestimate-ethinyl estradioL 0.25-0.035 mg per tablet Commonly known as: ORTHO-CYCLEN Medication Adjustments for Surgery: Continue until night before surgery Nurtec ODT 75 mg Tbdl Generic drug: rimegepant Medication Adjustments for Surgery: Continue until night before surgery OXcarbazepine 300 MG tablet Commonly known as: TRILEPTAL Medication Adjustments for Surgery: Continue until night before surgery pantoprazole 20 MG tablet Commonly known as: PROTONIX Medication Adjustments for Surgery: Continue until night before surgery QVAR INHL Medication Adjustments for Surgery: Take morning of surgery with sip of water, no other fluids Pre-Operative Vitamin, Minerals, Herbal Supplements Instructions In an effort to ensure a safe and successful surgical experience anesthesia recommends avoiding over the counter vitamins, minerals and herbal supplements for 10 days as these can interfere with anesthesia. Please ask us if you have any specific questions. EXAMPLES: multivitamins, Vitamin E, fish oil, Preservision AREDS Pre-Operative NSAID Medication Instructions Important: To reduce the risk of bleeding during surgery, it is recommended to avoid all Non-Steroidal Anti-Inflammatory Drugs for at least 10 days prior to your scheduled procedure. Do NOT take the following medications prescription or scry-out-bvvmdtn: Ibuprofen (Advil, Motrin) Naproxen (Aleve, Naprosyn) Excedrin, Bufferin Diclofenac (Voltaren) Indomethacin (Indocin) Meloxicam (Mobic) Ketorolac (Toradol) Celecoxib (Celebrex) Etodolac (Lodine) Note: Acetaminophen (Tylenol) may be used for pain relief unless otherwise instructed by your physician. Pre-Operative Bathing Instructions Take a shower with plain soap (dove, dial, ivory) the night before and the morning of surgery. Put clean sheets on your bed and wear clean pajamas the night before surgery. documented in this encounter Plan of Treatment Not on file documented as of this encounter Goals Goal Patient Goal Type Associated Problems Recent Progress Patient-Stated? Author Autogenerat ed Goal Care Plan Autogenerated Problem No Dorita Medina documented as of this encounter Procedures Procedure Name Priority Date/Time Associated Diagnosis Comments CBC W/ AUTO DIFF Routine 01/04/2025 1:07 PM EDT Preop examination COMPREHENSIVE METABOLIC PANEL Routine 01/04/2025 1:07 PM EDT Preop examination [id number] 12-LEAD Routine 01/04/2025 12:09 PM EDT Preop examination documented in this encounter Results * (ABNORMAL) Comprehensive metabolic panel (01/04/2025 1:07 PM EDT) Sodium 136 136 - 146 meq/L 01/04/2025 1:59 PM EDT [facility] Potassium 4.0 3.5 - 5.1 meq/L 01/04/2025 1:59 PM EDT [facility] Chloride 105 102 - 112 meq/L 01/04/2025 1:59 PM EDT [facility] CO2 27 21 - 32 meq/L 01/04/2025 1:59 PM EDT [facility] Calcium 8.8 8.5 - 10.1 mg/dL 01/04/2025 1:59 PM EDT [facility] Glucose 102(H) 74 - 100 mg/dL 01/04/2025 1:59 PM EDT [facility] BUN 9 7 - 22 mg/dL 01/04/2025 1:59 PM EDT [facility] Creatinine 0.81 0.55 - 1.02 mg/dL 01/04/2025 1:59 PM EDT [facility] BUN/Creatinine 11 8 - 20 01/04/2025 1:59 PM EDT [facility] Albumin 3.5 3.4 - 5.0 g/dL 01/04/2025 1:59 PM EDT [facility] Alkaline Phosphatase 115 27 - 136 U/L 01/04/2025 1:59 PM EDT [facility] ALT 18 12 - 78 U/L 01/04/2025 1:59 PM EDT [facility] AST 15 5 - 37 U/L 01/04/2025 1:59 PM EDT [facility] Total Bilirubin 0.2 0.2 - 1.3 mg/dL 01/04/2025 1:59 PM EDT [facility] Protein, Total 7.1 6.4 - 8.2 gm/dL 01/04/2025 1:59 PM EDT [facility] Anion Gap 8(L) 9 - 20 01/04/2025 1:59 PM EDT [facility] A/G Ratio 1.0(L) 1.1 - 2.5 01/04/2025 1:59 PM EDT [facility] Globulin 3.6 1.5 - 4.5 g/dL 01/04/2025 1:59 PM EDT [facility] Osmolality Calc 270.8 mOsm/kg 1:59 PM EDT [facility] eGFR (mL/min/1.73m2) >60 >=60 mL/min/1.7 3m2 01/04/2025 1:59 PM EDT [facility] Comment:ESTIMATED GFR IS NOT ACCURATE CREATININE CLEARANCE IN PREDICTING GLOMERULAR FILTRATION RATE. ESTIMATED GFR IS NOT APPLICABLE FOR DIALYSIS PATIENTS. Blood Venipuncture / Unknown 01/04/2025 1:07 PM EDT 01/04/2025 1:36 PM EDT us Reno Whalen DPCabrera LAB BLOOD ORDERABLES Final R esult [facility] [address] [id number] [phone] * (ABNORMAL) CBC with automated diff (01/04/2025 1:07 PM EDT) WBC 5.8 3.9 - 10.0 K/ L 01/04/2025 1:40 PM EDT [facility] RBC 4.15 3.93 - 5.22 M/ L 01/04/2025 1:40 PM EDT [facility] Hemoglobin 11.3 11.2 - 15.7 GM/DL 01/04/2025 1:40 PM EDT [facility] Hematocrit 35.1 34.1 - 44.9 % 01/04/2025 1:40 PM EDT [facility] MCV 85 79 - 95 fL 01/04/2025 1:40 PM EDT [facility] MCH 27.2 25.6 - 32.2 pg 01/04/2025 1:40 PM EDT [facility] MCHC 32.2 32.2 - 36.5 GM/DL 01/04/2025 1:40 PM EDT [facility] RDW 14.2 11.6 - 14.4 % 01/04/2025 1:40 PM EDT [facility] Platelets 280 163 - 369 K/CU MM 01/04/2025 1:40 PM EDT [facility] MPV 10.1 9.4 - 12.4 fL 01/04/2025 1:40 PM EDT [facility] % Neutros 56 34 - 71 % 01/04/2025 1:40 PM EDT [facility] % Lymphs 28 19 - 53 % 01/04/2025 1:40 PM EDT [facility] % Monos 7 4 - 13 % 01/04/2025 1:40 PM EDT [facility] % Eos 7.5(H) 1.0 - 7.0 % 01/04/2025 1:40 PM EDT [facility] % Baso 1 0 - 1 % 01/04/2025 1:40 PM EDT [facility] # Neutros 3.24 1.56 - 6.13 K/ L 01/04/2025 1:40 PM EDT [facility] # Lymphs 1.63 1.18 - 3.74 K/ L 01/04/2025 1:40 PM EDT [facility] # Monos 0.40 0.24 - 0.82 K/ L 01/04/2025 1:40 PM EDT [facility] # Eos 0.43 0.04 - 0.54 K/ L 01/04/2025 1:40 PM EDT [facility] # Baso 0.03 0.01 - 0.08 K/ L 01/04/2025 1:40 PM EDT [facility] % Imm Grans 0.30 0.00 - 0.60 % 01/04/2025 1:40 PM EDT [facility] # IG 0.02 0.00 - 0.05 K/uL 01/04/2025 1:40 PM EDT [facility] Blood Venipuncture / Unknown 01/04/2025 1:07 PM EDT 01/04/2025 1:36 PM EDT Narrative [facility] - 01/04/2025 1:40 PM EDT When CBC w/ Auto Diff is ordered the lab will add a Manual Differential as a quality check at no additional charge if: Lymphocytes greater than seventy five percent with normal or increased WBC Monocytes greater than Fifteen percent Basophil greater than four percent Bands >10% or several immature myeloids are seen on scan Blast? Flag noted Atypical Lymph flag noted us Reno Whalen DPM LAB BLOOD ORDERABLES Final R esult Performing Organization Address City/[facility] Co de Phone Number [facility] [address] [phone] * ECG 12 lead (01/04/2025 12:09 PM EDT) VENTRICULAR RATE EKG/MIN 99 BPM GE MUSE ATRIAL RATE (MCT) 99 BPM GE MUSE DC Interval 182 ms GE MUSE QRS-INTERVAL (MSEC) 84 ms GE MUSE QT Interval 332 ms GE MUSE QTC Interval 426 ms GE MUSE P [place] 52 degrees GE MUSE R AXIS (MCT) 71 degrees GE MUSE T Wave [place] 47 degrees GE MUSE [place] Diagnosis Normal sinus rhythm Normal ECG Confirmed by Jaylon MONTANEZ SUZANNE ([id number]) on 01/04/2025 6:03:54 PM GE MUSE 01/04/2025 12:0 9 PM EDT 01/04/2025 6:03 PM EDT us Reno Whalen DPM ECG ORDERABLES Final Result GE MUSE documented in this encounter Visit Diagnoses Diagnosis Preop examination- Primary Unspecified pre-operative examination documented in this encounter Additional Health Concerns Active Problems Noted Date Diagnosed Date Autogenerated Problem 12/20/2024 documented as of this encounter Care Teams Picture Copyist Relationship Specialty Start Date End Date GonzalezBrunae, SNOWMAKER [address] [phone] PCP - General Nurse Practitioner 01/04/25 documented as of this encounter
--- OUTSIDE RECORDS SUMMARY | 2025-01-17 11:26 | XMS_ITS | Encounter Summary ---
Author Organization [employer] ([place], [place], [place], [place], [place]) Address [address] [place] [address] Care Team Providers Care Rental Representative Name Role Phone Radha Gonzalez APRN Primary Care Provider [phone] Reason for Visit * Auth/Cert (Routine) Specialty Diagnoses / Procedures Referred By Contac t Referred To Contact Diagnoses Spontaneous rupture of flexor tendon of left lower leg Left foot pain Acquired external rotation of foot, right Calcaneal spur of left foot SEE PRIMARY DX Procedures UT RPR PRIMARY OPEN/PRQ RUPTURED ACHILLES W/GRAFT UT OSTECTOMY CALCANEUS UT GASTROCNEMIUS RECESSION REPAIR, TENDON, ACHILLES EXCISION, BONE, FOOT RECESSION, MUSCLE, GASTROCNEMIUS Reno Whalen DPM [address] [facility] [place] [address] Phone: tel: fax: Referral ID Status Reason Start Date Expiration Date Visits Re quested Visits Authorized [id number] 12/20/2024 1 1 Encounter Details Date Type Department Care Team (Late st Contact Info) Description 01/17/2025 11:26 AM EST - 01/17/2025 5:45 PM [facility] Hospital Encounter [facility] Surgery Department [address] [place] [address] Reno Whalen DPM [address] [facility] [place] [address] Spontaneous rupture of flexor tendon of left lower leg; Left foot pain; Acquired external rotation of foot, right; Calcaneal spur of left foot Discharge Disposition: Home or Self Care Social History Tobacco Use Types Packs/Day Years Used Date Smoking Tobacco: Never Smokeless Tobacco: Never Alcohol Use Standard Drinks/Week Comments Not Currently [...] Sign Reading Time Taken Comments Blood Pressure 132/60 01/17/2025 5:05 PM EST Pulse 86 01/17/2025 5:05 PM EST Temperature 36.3 C (97.4 F) 01/17/2025 5:05 PM EST Respiratory Rate 16 01/17/2025 5:05 PM EST Oxygen Saturation 98% 01/17/2025 5:05 PM EST Inhaled Oxygen Concentration - - Weight 94.3 kg (208 lb) 01/17/2025 12:50 PM EST Height - - Body Mass Index 36.85 01/04/2025 1:08 PM EDT documented in this encounter Discharge Instructions * Attachments The following attachments cannot be sent through Care Everywhere. * Achilles Tendon Tear Repair Care After (Peruvian) * Calcaneal Fracture Repair Surgery Care After (Peruvian) * General Anesthesia Adult Care After (Peruvian) documented in this encounter Medications at Time [...] as of this encounter H&P Notes * Reno Whalen DPM - 01/17/2025 1:30 PM EST H&P reviewed. The patient was examined and there are no changes to the H&P. NDS INSPECTOR Source Note - Francois Zeng PA-C - 01/17/2025 11:40 AM EST documented in this encounter OR Notes * Brief Op Note - Reno Whalen DPM - 01/17/2025 4:32 PM EST Operative report Patient name: Winifred Sanders Location: [facility] Date of surgery: 01/17/2025 Date of 1980 Surgeon: Dr. Reno Whalen, D.P.M. Social Services Assistant: None Preoperative diagnosis: 1. Left Achilles tendon tear 2. Calcaneal spur left 3. Gastroc equinus left 4. Pain left foot and ankle Postop diagnosis: Same as preop diagnosis Procedure: 1. Tendo Achilles repair left side with graft and anchors 2. Application of posterior splint anterior splint 3. Gastroc recession left 4. Calcaneal spur resection left Pathology: Bone and soft tissue Anesthesia: General With a popliteal and adductor block Hemostasis: Pneumatic thigh tourniquet at 275 millimeters mercury Estimate blood: Minimal Materials: Vicryl, nylon, Mepitel, skin ines, bio tissue graft, Martín drain ANCHOR KNOTLESS 4.5MM CM-9145 - [id number] Implanted 01/17/2025 03/24/2029 ANCHOR KNOTLESS 4.5MM CM-9145 - [id number] Implanted 01/17/2025 01/25/2029 CORD NEOX 3.0X3.0CM RT NX-UR-3030 - [id number] Implanted 01/17/2025 07/19/2026 Graft was used to help augment the repair of the Achilles. Specifically to help the peritenon whichwas added deficit to the Achilles tendon which had a tear. Additionally to help cover the the sutures which are non-- absorbable. This will help to prevent closure issues and infections. The good bulk recreator after the tendon is repaired and removed of any bad scarred tendon as well. 100% of the g raft was used on the patient. None was wasted. Injectables: See anesthesia Complications: None NDS INSPECTOR * Op Note - Reno Whalen DPM - 01/17/2025 4:14 PM EST Operative report Patient name: Winifred Sanders Location: [facility] Date of surgery: 01/17/2025 Date of 1980 Surgeon: Dr. Reno Whalen, D.P.M. Social Services Assistant: None Preoperative diagnosis: 1. Left Achilles tendon tear 2. Calcaneal spur left 3. Gastroc equinus left 4. Pain left foot and ankle Postop diagnosis: Same as preop diagnosis Procedure: 1. Tendo Achilles repair left side with graft and anchors 2. Application of posterior splint anterior splint 3. Gastroc recession left 4. Calcaneal spur resection left Pathology: Bone and soft tissue Anesthesia: General With a popliteal and adductor block Hemostasis: Pneumatic thigh tourniquet at 275 millimeters mercury Estimate blood: Minimal Materials: Vicryl, nylon, Mepitel, skin ines, bio tissue graft, [place] drain ANCHOR KNOTLESS 4.5MM CM-9145 - [id number] Implanted 01/17/2025 03/24/2029 ANCHOR KNOTLESS 4.5MM CM-9145 - [id number] Implanted 01/17/2025 01/25/2029 CORD NEOX 3.0X3.0CM RT NX-UR-3030 - [id number] Implanted 01/17/2025 07/19/2026 Graft was used to help augment the repair of the Achilles. Specifically to help the peritenon whichwas added deficit to the Achilles tendon which had a tear. Additionally to help cover the the sutures which are non-- absorbable. This will help to prevent closure issues and infections. The good bulk recreator after the tendon is repaired and removed of any bad scarred tendon as well. 100% of the g raft was used on the patient. None was wasted. Injectables: See anesthesia Complications: None Indications for this procedure: This is a 44-year-old female with a chief complaint of left Achilles tendon tear. She got this while at work. The site has not gotten any better after weeks of boot and wrapped in nonweightbearing and conservative care. MRI was positive. At this point, the patient isoffered surgical treatment. All risk, benefits, potential complications of the proposed surgery explained the patient and the family great detail. The patient and the family had the opportunity to ask all questions. No guarantees given or implied. Operative technique: The patient was brought into the operating room and placed on the operating table in a prone position. The left lower extremity was prepped and draped you sterile fashion. Patient was well-padded everywhere as required. Timeout was performed. Attention then directed the patientleft gastroc we made incision over the gastroc proximal 15 cm proximal to the medial malleolus. Mir montelongo did a blunt and sharp dissection and identified the gastroc aponeurosis. We then transected it.There is much less contractility at this time. Irrigation then performed. Deep structures were thenreapproximated with Vicryl. Cutaneous fractures were reapproximated with nylon. Mepitel and skin ines were then applied. With the drain. Drain was used due to the deep dissection to get to the aponeurosis on the patient's calf. Additionally, we then made an incision with a 15 blade along the Achilles. We bluntly dissected through the peritenon. We then used Vicryl pop-off's to retract the peritenon to protect it for later reapproximation. We identified the Achilles tendon and transected it centrally. We then took the Achilles tendon off of the calcaneus. We identified the calcaneal spur and resected it. We smoothed the calcaneus down so there were no bony prominences anymore. We then placed anchor stitches proximally and distally. We gathered the tendon and repaired it. Graft was then placed over the tendon. Followed by peritenon repair. We used Vicryl for that. Cutaneous structures were reapproximated with nylon. We also used Mepitel and skin ines for the incision. We followed that with Acticoat, 4 x 4's, Kerlix, Coban and a well-padded anterior splint and posterior splint. We then used an Brendan wrap to adhere the splint and a stockinette. We used the c- arm visualization to help us identify if we got enough bone spur off. The patient tolerated the procedure and anesthesia well with any complications. Tourniquet was deflated at the end of the procedure and good vascular status did return. Patient is to keep the dressing clean, dry, and intact and follow-up in office on Wednesday. Medications have been sent to her pharmacy to be to be used as directed NDS INSPECTOR documented in this encounter Plan of Treatment Not on file documented as of this encounter Goals Goal Patient Goal Type Associated Problems Recent Progress Patient-Stated? Author Autogenerat ed Goal Care Plan Autogenerated Problem No Dorita Medina documented as of this encounter Procedures Procedure Name Priority Date/Time Associated Diagnosis Comments XR FOOT 3 VIEWS LEFT STAT 01/17/2025 4:35 PM EST TISSUE EXAM (CHERY ORNELAS) AP Routine 01/17/2025 3 :02 PM EST Spontaneous rupture of flexor tendon of left lower leg Left foot pain Acquired external rotation of foot, right Calcaneal spur of left foot UT GASTROCNEMIUS RECESSION 01/17/2025 1:47 PM EST Spontaneous rupture of flexor tendon of left lower leg Left foot pain Acquired external rotation of foot, right Calcaneal spur of left foot Case Notes FADY UT OSTECTOMY CALCANEUS 01/17/2025 1:47 PM EST Spontaneous rupture of flexor tendon of left lower leg Left foot pain Acquired external rotation of foot, right Calcaneal spur of left foot Case Notes FADY UT RPR PRIMARY OPEN/PRQ RUPTURED ACHILLES W/GRAFT 01/17/2025 1:47 PM EST Spontaneous rupture of flexor tendon of left lower leg Left foot pain Acquired external rotation of foot, right Calcaneal spur of left foot Case Notes FADY FS_MODEL_IP POCT , URINE Routine 01/17/2025 12:49 PM EST NOVA GLUCOSE POC Routine 01/17/2025 11:4 3 AM EST EKG-SCANNED 01/17/2025 documented in this encounter Results * XR foot 3 views left (01/17/2025 4:35 PM EST) Anatomical Region Laterality Modality Foot, Ankle X-Ray 01/17/2025 7:36 PM EST Impressions 01/17/2025 8:03 PM EST Unremarkable. Images reviewed, interpreted, and dictated by Dr. Steve Hawkins. Transcribed by Erika Arauz. Narrative 01/17/2025 8:03 PM EST THREE-VIEW LEFT FOOT HISTORY: Postop COMPARISON: None. FINDINGS: There is no fracture, dislocation or other abnormality of bone or joint. Soft tissues are unremarkable. Detail is limited from overlying cast or bandage. Procedure Note Bina Hawkins MD - 01/17/2025 THREE-VIEW LEFT FOOT HISTORY: Postop COMPARISON: None. FINDINGS: There is no fracture, dislocation or other abnormality of bone or joint. Soft tissues are unremarkable. Detail is limited from overlying cast or bandage. IMPRESSION: Unremarkable. Images reviewed, interpreted, and dictated by Dr. Steve Hawkins. Transcribed by Skyla Tierra, Scribe. us Reno Whalen DPM IMG DIAGNOSTIC IMAGING ORDER CHRISTY Final Result * Tissue Exam (01/17/2025 3:02 PM EST) Pathologist [facility] AP RESULT See Note: [facility] Comment: PATHOLOGY REPORT DIAGNOSIS: A. SOFT TISSUE, LEFT, ; ACHILLES TENDON AND BONE, EXCISION: Benign fragments of soft tissue and bone with no significant histopathologic abnormalities Negative for osteomyelitis, dysplasia, or malignancy Final Reviewed, Diagnosed and Electronically Signed By: CHIP PIMENTEL MD 2025 12:26PM CLINICAL HISTORY: Spontaneous rupture of flexor tendons, left lower leg MICROSCOPIC DESCRIPTION: Tissue blocks are prepared and slides examined microscopically on all specimens. See diagnosis for details. GROSS DESCRIPTION: A. Received in formalin labeled Achilles tendon entire and bone spur is a 4.2 x 2.9 x 0.5 cm aggregate of menezes white fibrous tissue and cardona-yellow, jagged bone. Central Supply Supervisor portions are wrapped and submitted in block A1 following decalcification. MTS Tissue BONE STRUCTURE / Unknown 01/17/2025 3:02 PM EST us Reno Whalen DPM PATHOLOGY/CYTOLOGY ORDERABLE S Final Result [facility] [address] [place] [address] * POCT , urine (01/17/2025 12:49 PM EST) Pathologist [facility] POC, URINE HCG Negative Negative INTERNAL QC (VALID/INVALID) Valid Kit Lot Number [id number] Expiration Date 02/21/26 01/17/2025 12:4 9 PM EST us Julian Barrera MD FS_MODEL_IP_POINT OF CARE TEST ENTER/EDIT ORDERABLES Final Result * Glucose, Nova Meter (01/17/2025 11:43 AM EST) POC-GLUCOSE 87 70 - 110 mg/dL 01/17/2025 11:49 AM EST [facility] Comment:In the event of poor peripheral blood flow, venous or arterial blood should be used due to the potential of erroneous results. Sales Producer [phone] 01/17/2025 11:49 AM EST [facility] Blood WHOLE BLOOD / Unknown 01/17/2025 11:43 AM EST 01/17/2025 11:49 AM EST Reno Whalen DP POINT OF CARE TEST ORDERABLE S Final Result [facility] [address] [phone] * EKG-SCANNED (01/17/2025) Narrative 01/17/2025 Ordered by an unspecified provider. us Default Scanning Provider SCAN ORDERS Final Result documented in this encounter Visit Diagnoses Diagnosis Spontaneous rupture of flexor tendon of left lower leg Left foot pain Pain in soft tissues of limb Acquired external rotation of foot, right Calcaneal spur of left foot documented in this encounter Administered Medications Inactive Administered Medications - up to 3 most recent administrations Medication Order MAR Action Action Date Dose Rate Site albuterol 2.5 mg /3 mL (0.083 %) nebulizer solution 2.5 mg 2.5 mg Once as needed, nebulization, wheezing, Starting on Wed01/17/25 at 1603, For 1 dose, RESPIRATORY THERAPY TREATMENT , PACU, What is the respiratory therapy Modality? Small volume Nebulization electrolyte-R (NORMOSOL-R) infusion intravenous, Continuous, Starting on Wed01/17/25 at 1200, Pre-op New Bag 01/17/2025 3:03 PM EST 100 mL/hr 100 mL/hr Rate/Dose Change 01/17/2025 1:49 PM EST 100 mL/hr 100 mL/ hr New Bag 01/17/2025 12:40 PM EST 1,000 mLs famotidine (PEPCID) tablet 20 mg 20 mg Once, oral, On Wed01/17/25 at 1200, For 1 dose, Pharmacist to renally dose if CrCl is less than 50 mL/min or on CRRT., Pre-op Given 01/17/2025 12:33 PM EST 20 mg fentaNYL PF (SUBLIMAZE) injection 100 mcg 100 mcg Once, intravenous, On Wed01/17/25 at 1200, For 1 dose, Pre-op Given 01/17/2025 1:07 PM EST 100 mcg fentaNYL PF (SUBLIMAZE) injection 25 mcg 25 mcg Every 5 min PRN, intravenous, mild pain (1-3), max 4 doses, Starting on Wed01/17/25 at 1603, For 4 doses, 25 mcg, intravenous, every 5-10 mins prn pain 1-3, max 4 doses, PACU fentaNYL PF (SUBLIMAZE) injection 50 mcg 50 mcg Every 5 min PRN, intravenous, moderate pain (4-6), max 2 doses, Starting on Wed01/17/25 at 1603, For 2 doses, 50 mcg, intravenous, every 5-10 min prn pain 4-6, max 2 doses, PACU Given 01/17/2025 4:31 PM EST 50 mcg HYDROmorphone (DILAUDID) injection 0.5 mg 0.5 mg Every 5 min PRN, intravenous, severe pain (7-10), max 4 doses, Starting on Wed01/17/25 at 1603, For 4 doses, O.5 mg, intravenous, every 5-10 mins pain 7-10, max 4 doses, PACU midazolam (PF) (VERSED) injection 2 mg 2 mg Once, intravenous, On Wed01/17/25 at 1230, For 1 dose, Look-alike/Sound-alike medication, Pre-op Given 01/17/2025 1:07 PM EST 2 mg ondansetron (ZOFRAN) injection 4 mg 4 mg Once, intravenous, On Wed01/17/25 at 1630, For 1 dose, 1st line for nausea For IV push, give over 2 - 5 minutes., PACU Given 01/17/2025 4:29 PM EST 4 mg oxyCODONE-acetaminophen (PERCOCET) 5-325 mg per tablet 1 tablet 1 tablet Once, oral, On Wed01/17/25 at 1630, For 1 dose, Recommended maximum dose of acetaminophen is 4000 mg from all sources in 24 hours Look-alike/Sound-alike medication, PACU Given 01/17/2025 4:50 PM EST 1 tablet racemic epinephrine 2.25 % nebulizer solution 1 mL 1 mL Once as needed, nebulization, wheezing, For stridor, Starting on Wed01/17/25 at 1603, For 1 dose, Administer via Small Volume Nebulizer RESPIRATORY THERAPY TREATMENT , PACU sodium chloride flush 10 mL 10 mL As needed, intravenous, line care, Starting on Wed01/17/25 at 1144, Every 8 hours and PRN to flush, Pre-op documented in this encounter Active and Recently Administered Medications Times are shown in EST. Scheduled Medication Order 01/15/2025 01/16/2025 01/17/2025 ceFAZolin (ANCEF) IVPB 2 g/50 mL D5W (premix) (COMPLETED) 2 g Once, intravenous, Administer over 30 Minutes, On Wed01/17/25 at 1200, For 1 dose, Administer within 60 minutes of incision or procedure start., Pre-op, Please choose an indication: Surgical Prophylaxis 1233 (Handoff - Prov ider: Tessy Moyer RN)1357 (Given - Provider: Ermelinda Llanos CRNA) famotidine (PEPCID) tablet 20 mg (COMPLETED) 20 mg Once, oral, On Wed01/17/25 at 1200, For 1 dose, Pharmacist to renally dose if CrCl is less than 50 mL/min or on CRRT., Pre-op 1233 (Given - Provid er: Tessy Moyer RN) fentaNYL PF (SUBLIMAZE) injection 100 mcg (COMPLETED) 100 mcg Once, intravenous, On Wed01/17/25 at 1200, For 1 dose, Pre-op 1307 (Given - Provid er: Tessy Moyer RN - Comment: procedural sedation for nerve block) fentaNYL PF (SUBLIMAZE) injection 50 mcg 50 mcg Once, intravenous, On Wed01/17/25 at 1230, For 1 dose, Pre-op 1230 (Due) ipratropium-albuteroL (DUO-NEB) 0.5 mg-3 mg(2.5 mg base)/3 mL nebulizer solution 3 mL 3 mL Once, nebulization, On Wed01/17/25 at 1630, For 1 dose, RESPIRATORY THERAPY TREATMENT Protect from Light, PACU, What is the respiratory therapy Modality? Small volume Nebulization 1630 (Due) meperidine (PF) (DEMEROL) injection 12.5 mg 12.5 mg Once, intravenous, On Wed01/17/25 at 1630, For 1 dose, PACU, Are you ordering this medication for the approved restricted patient population specified above? No 1630 (Due) midazolam (PF) (VERSED) injection 2 mg (COMPLETED) 2 mg Once, intravenous, On Wed01/17/25 at 1230, For 1 dose, Look-alike/Sound-alike medication, Pre-op 1307 (Given - Provid er: Tessy Moyer RN - Comment: procedural sedation for nerve block) ondansetron (ZOFRAN) injection 4 mg (COMPLETED) 4 mg Once, intravenous, On Wed01/17/25 at 1630, For 1 dose, 1st line for nausea For IV push, give over 2 - 5 minutes., PACU 1629 (Given - Provid er: Karlene Montoya RN) oxyCODONE-acetaminophen (PERCOCET) 5-325 mg per tablet 1 tablet (COMPLETED) 1 tablet Once, oral, On Wed01/17/25 at 1630, For 1 dose, Recommended maximum dose of acetaminophen is 4000 mg from all sources in 24 hours Look-alike/Sound-alike medication, PACU 1650 (Given - Provid er: Karlene Montoya RN) ropivacaine PF (NAROPIN) 0.5 % (5 mg/mL) injection 30 mL 30 mL Once, injection, On Wed01/17/25 at 1230, For 1 dose, Administered by anesthesiologist only, Pre-op 1230 (Due) Continuous Medication Order 01/15/2025 01/16/2025 01/17/2025 electrolyte-R (NORMOSOL-R) infusion intravenous, Continuous, Starting on Wed01/17/25 at 1200, Pre-op 1240 (New Bag - Prov ider: Tessy Moyer RN)1349 (Rate/Dose Change - Provider: Ermelinda Llanos CRNA)1503 (New Bag - Provider: Ermelinda Llanos CRNA)1611 (Anesthesia Volume Adjustment - Provider: Ermelinda Llanos CRNA) PRN Medication Order 01/15/2025 01/16/2025 01/17/2025 albuterol 2.5 mg /3 mL (0.083 %) nebulizer solution 2.5 mg 2.5 mg Once as needed, nebulization, wheezing, Starting on Wed01/17/25 at 1603, For 1 dose, RESPIRATORY THERAPY TREATMENT , PACU, What is the respiratory therapy Modality? Small volume Nebulization fentaNYL PF (SUBLIMAZE) injection 25 mcg 25 mcg Every 5 min PRN, intravenous, mild pain (1-3), max 4 doses, Starting on Wed01/17/25 at 1603, For 4 doses, 25 mcg, intravenous, every 5-10 mins prn pain 1-3, max 4 doses, PACU fentaNYL PF (SUBLIMAZE) injection 50 mcg 50 mcg Every 5 min PRN, intravenous, moderate pain (4-6), max 2 doses, Starting on Wed01/17/25 at 1603, For 2 doses, 50 mcg, intravenous, every 5-10 min prn pain 4-6, max 2 doses, PACU 1631 (Given - Provid er: Karlene Montoya RN) HYDROmorphone (DILAUDID) injection 0.5 mg 0.5 mg Every 5 min PRN, intravenous, severe pain (7-10), max 4 doses, Starting on Wed01/17/25 at 1603, For 4 doses, O.5 mg, intravenous, every 5-10 mins pain 7-10, max 4 doses, PACU racemic epinephrine 2.25 % nebulizer solution 1 mL 1 mL Once as needed, nebulization, wheezing, For stridor, Starting on Wed01/17/25 at 1603, For 1 dose, Administer via Small Volume Nebulizer RESPIRATORY THERAPY TREATMENT , PACU sodium chloride (NS) 0.9 % irrigation solution (CANCELED) As needed, Starting on Wed01/17/25 at 1412, Intra-op 1412 (Given - Provid er: Reno Whalen DPM - Comment: Given to sterile field for fire safety) sodium chloride flush 10 mL(Linked Group 1) 10 mL As needed, intravenous, line care, Starting on Wed01/17/25 at 1144, Every 8 hours and PRN to flush, Pre-op Linked Groups Order Group 1: Insert Peripheral IV (CANCELED) STAT, Once, On Wed01/17/25 at 1145, For 1 occurrence, Pre-op And Saline Lock IV (CANCELED) Routine, Once, On Wed01/17/25 at 1145, For 1 occurrence, Pre-op And sodium chloride flush 10 mLJump to med 10 mL As needed, intravenous, line care, Starting on Wed01/17/25 at 1144, Every 8 hours and PRN to flush, Pre-op documented in this encounter Additional Health Concerns Active Problems Noted Date Diagnosed Date Autogenerated Problem 12/20/2024 documented as of this encounter Care Teams Rental Representative Relationship Specialty Start Date End Date Radha Gonzalez, [employer] FIELD SUPERVISOR [address] [address] PCP - General Nurse Practitioner 01/04/25 documented as of this encounter
--- OUTSIDE RECORDS SUMMARY | 2025-01-17 13:25 | XMS_ITS | Encounter Summary ---
Author Organization [employer] ([place], [place], [place], [place], [place]) Address [address] [place] [address] Care Team Providers Care Heel Slugger Name Role Phone Radha Gonazlez APRN Primary Care Provider Reason for Visit * Auth/Cert (Routine) Specialty Diagnoses / Procedures Referred By Contac t Referred To Contact Diagnoses Spontaneous rupture of flexor tendon of left lower leg Left foot pain Acquired external rotation of foot, right Calcaneal spur of left foot SEE PRIMARY DX Procedures VT RPR PRIMARY OPEN/PRQ RUPTURED ACHILLES W/GRAFT VT OSTECTOMY CALCANEUS VT GASTROCNEMIUS RECESSION REPAIR, TENDON, ACHILLES EXCISION, BONE, FOOT RECESSION, MUSCLE, GASTROCNEMIUS Reno Whalen DPM [address] [facility] [place] [address] Phone: tel: fax: Referral ID Status Reason Start Date Expiration Date Visits Re quested Visits Authorized [id number] 12/20/2024 1 1 Encounter Details Date Type Department Care Team (Late st Contact Info) Description 01/17/2025 1:25 PM EST - 01/17/2025 3:53 PM EST Surgery [facility] Surgery Department [address] [place] [address] Reno Whalen DPM [address] [facility] [place] [address] LEFT ACHILLES REPAIR WITH GRAFT, LEFT CALCANEAL SPUR RESECTION, GASTROCNEMIUS RECESSION LEFT Social History Tobacco Use Types Packs/Day Years [...] Sign Reading Time Taken Comments Blood Pressure 115/59 01/17/2025 1:41 PM EST Pulse 82 01/17/2025 1:41 PM EST Temperature 36.6 C (97.9 F) 01/17/2025 12:50 PM EST Respiratory Rate 16 01/17/2025 1:41 PM EST Oxygen Saturation 100% 01/17/2025 1:41 PM EST 2LNC Inhaled Oxygen Concentration - - Weight 94.3 kg (208 lb) 01/17/2025 12:50 PM EST Height - - Body Mass Index 36.85 01/04/2025 1:08 PM EDT documented in this encounter Discharge Instructions * Attachments The following attachments cannot be sent through Care Everywhere. * Achilles Tendon Tear Repair Care After (Angolan) * Calcaneal Fracture Repair Surgery Care After (Angolan) * General Anesthesia Adult Care After (Angolan) documented in this encounter Medications at Time [...] there are no changes to the H&P. NESS ANALYTICS ANALYST Source Note - Francois Zeng PA-C - 01/17/2025 11:40 AM EST documented in this encounter OR Notes * Brief Op Note - Reno Whalen DPM - 01/17/2025 4:32 PM EST Operative report Patient name: Winifred Sanders Location: [facility] Date of surgery: 01/17/2025 Date of 1980 Surgeon: Dr. Reno Whalen, D.P.M. Cleaner Industrial: None Preoperative diagnosis: 1. Left Achilles tendon [...] Martín drain ANCHOR KNOTLESS 4.5MM CM-9145 - [id number] Implanted 01/17/2025 03/24/2029 ANCHOR KNOTLESS 4.5MM CM-9145 - [id number] Implanted 01/17/2025 01/25/2029 CORD NEOX 3.0X3.0CM RT NX-UR-3030 - [id number] Implanted 01/17/2025 07/19/2026 Graft was used to [...] was wasted. Injectables: See anesthesia Complications: None NESS ANALYTICS ANALYST * Op Note - Reno Whalen DPM - 01/17/2025 4:14 PM EST Operative report Patient name: Winifred Sanders Location: [facility] Date of surgery: 01/17/2025 Date of 1980 Surgeon: Dr. Reno Whalen, D.P.M. Cleaner Industrial: None Preoperative diagnosis: 1. Left Achilles tendon [...] Martín drain ANCHOR KNOTLESS 4.5MM CM-9145 - [id number] Implanted 01/17/2025 03/24/2029 ANCHOR KNOTLESS 4.5MM CM-9145 - [id number] Implanted 01/17/2025 01/25/2029 CORD NEOX 3.0X3.0CM RT NX-UR-3030 - [id number] Implanted 01/17/2025 07/19/2026 Graft was used to [...] to be to be used as directed NESS ANALYTICS ANALYST documented in this encounter Plan of Treatment [...] foot, right Calcaneal spur of left foot VT GASTROCNEMIUS RECESSION 01/17/2025 1:47 PM EST Spontaneous rupture of flexor tendon of left lower leg Left foot pain Acquired external rotation of foot, right Calcaneal spur of left foot Case Notes FADY VT OSTECTOMY CALCANEUS 01/17/2025 1:47 PM EST Spontaneous rupture of flexor tendon of left lower leg Left foot pain Acquired external rotation of foot, right Calcaneal spur of left foot Case Notes FADY VT RPR PRIMARY OPEN/PRQ RUPTURED ACHILLES W/GRAFT 01/17/2025 [...] Dr. Steve Hawkins. Transcribed by Erika Arauz. us Reno Whalen DPM IMG DIAGNOSTIC IMAGING ORDER CHRISTY Final Result * Tissue Exam (01/17/2025 3:02 PM EST) Pathologist [facility] AP RESULT See Note: PATHOLOGY AND CYTOLOGY [...] x 2.9 x 0.5 cm aggregate of meenzes white fibrous tissue and cardona-yellow, jagged bone. Cnc Machine Setter portions are wrapped and submitted in block A1 following decalcification. MTS Tissue BONE STRUCTURE / Unknown 01/17/2025 3:02 PM EST Reno Whalen DPM PATHOLOGY/CYTOLOGY ORDERABLE S Final Result [facility]Y [facility] [address] [place] [address], [facility] * POCT , urine (01/17/2025 12:49 PM EST) Pathologist [facility] POC, URINE HCG Negative Negative INTERNAL QC (VALID/INVALID) Valid Kit Lot Number [id number] Expiration Date 02/21/26 01/17/2025 12:4 9 PM EST us Julian Barrera MD FS_MODEL_IP_POINT OF CARE TEST ENTER/EDIT ORDERABLES Final Result * Glucose, Nova Meter (01/17/2025 11:43 AM EST) POC-GLUCOSE 87 70 - 110 mg/dL 01/17/2025 11:49 AM EST [facility] Comment:In the event of poor peripheral blood flow, venous or arterial blood should be used due to the potential of erroneous results. Delivery Mgr [id number] 01/17/2025 11:49 AM EST [facility] Blood WHOLE BLOOD / Unknown 01/17/2025 11:43 AM EST 01/17/2025 11:49 AM EST us Reno Whalen DPM POINT OF CARE TEST ORDERABLE S Final Result [facility] [address] [phone] * EKG-SCANNED (01/17/2025) Narrative 01/17/2025 Ordered by an unspecified provider. us Default Scanning Provider SCAN ORDERS Final Result documented in this encounter Visit Diagnoses Diagnosis Spontaneous rupture of flexor tendon of left lower leg Left foot pain Pain in soft tissues of limb Acquired external rotation of foot, right Calcaneal spur of left foot Spontaneous rupture of flexor tendon of left [...] sodium chloride (NS) 0.9 % irrigation solution As needed, Starting on Wed01/17/25 at 1412, Intra-op Given 01/17/2025 2:12 PM EST 1,000 mLs sodium chloride flush 10 mL 10 mL [...] documented as of this encounter Care Teams Heel Slugger Relationship Specialty Start Date End Date Radha Gonzalez, APPLICATION INFRASTRUCTURE ENGINEER [address] [address] PCP - General Nurse Practitioner 01/04/25 documented as of this encounter
--- OUTSIDE RECORDS SUMMARY | 2025-01-17 13:47 | XMS_ITS | Encounter Summary ---
Author Organization [employer] ([place], [place], [place], [place], [place]) Address [address] [place] [address] Care Team Providers Care Aircraft Machinist Name Role Phone Radha Gonzalez APRN Primary Care Provider Reason for Visit * Auth/Cert (Routine) Specialty Diagnoses / Procedures Referred By Contac t Referred To Contact Diagnoses Spontaneous rupture of flexor tendon of left lower leg Left foot pain Acquired external rotation of foot, right Calcaneal spur of left foot SEE PRIMARY DX Procedures TX RPR PRIMARY OPEN/PRQ RUPTURED ACHILLES W/GRAFT TX OSTECTOMY CALCANEUS TX GASTROCNEMIUS RECESSION REPAIR, TENDON, ACHILLES EXCISION, BONE, FOOT RECESSION, MUSCLE, GASTROCNEMIUS Reno Whalen DPM [address] [place] [address] [address] [place] [address] Phone: tel: fax: Referral ID Status Reason Start Date Expiration Date Visits Re quested Visits Authorized [id number] 12/20/2024 1 1 Encounter Details Date Type Department Care Team (Late st Contact Info) Description 01/17/2025 1:47 PM EST Anesthesia Event [facility] Surgery Department [address] [place] [address] Ermelinda Llanos CRNA [address] [phone] Julian Barrera MD [address] [phone] Anesthesia Record Procedure Summary Procedure Name Responsible Anesthesiologist Anesthesia Start Time Anesthesia Stop Time LEFT ACHILLES REPAIR WITH GRAFT, LEFT CALCANEAL SPUR RESECTION, GASTROCNEMIUS RECESSION LEFT (Left: Leg Lower) Ermelinda Swati Llanos, ENGINEERING SCIENTIST 01/17/25 1347 01/17/25 1613 Events Date Time Event Comment 01/17/2025 1210 1347 An Start Patient identif ied and chart reviewed. 1347 An Start Data Anesthesia mac zarina and monitors checked. 1350 Pre-Induction Eval FDA anest hesia machine pre-use checkout completed. Patient status reassessed prior to start of anesthesia care. 1350 An Induction 1355 An Intubation 1357 Anesthesia Ready 1417 An Tourn Inflated 275 mmHG 1547 An Tourn Deflated 1605 An Extubation 1607 an stop data 1611 Handoff to Receiving I compl eted my handoff to the receiving clinician during which we: 1. Identified the patient. 2. Identified the responsible provider. 3. Reviewed the pertinent medical history. 4. Discussed the surgical course. 5. Reviewed intra-op anesthesia management and issues during anesthesia. 6. Set expectations for post-procedure period. 7. Allowed opportunity for questions and acknowledgement of understanding. 1613 An Stop Meds Name Total dexamethasone (DECADRON) injection 4 mg/ mL 4 mg glycopyrrolate (ROBINUL) injection 0.2 m g lidocaine (XYLOCAINE) injection 2% 60 mg neostigmine (PROSTIGMINE) 1 mg/mL inject ion 2 mg ondansetron (ZOFRAN) injection vial 4 mg propofol (DIPRIVAN) injection 10 mg/mL b olus 200 mg rocuronium (ZEMURON) 100 mg/10 mL inject ion 30 mg BUPivacaine PF (MARCAINE) 0.5 % (5 mg/mL ) injection 10 mL fentaNYL (SUBLIMAZE) injection 150 mcg midazolam (VERSED) injection 2 mg ropivacaine (NAROPIN) (PF) injection 5 m g/mL (0.5%) 20 mL ceFAZolin (ANCEF) IVPB 2 g/50 mL D5W (pr emix) 2 g electrolyte-R (NORMOSOL-R) infusion 240 mL * Agents Name O2 N2O Air SEVOFLURANE * Blood No blood administrations on file. Lines, Drains, and Airways Type Details Placement Removal Wound 01/17/25; 1447; Inci adeline; Leg; Left; CALF: Raeann drain, mepitelHEEL: mepitel with ines 01/17/25 1447 by Justine Ruby RN Open Drain 01/17/25; 1502; 1; Inferior, Left, Posterior; Leg; (1/4 raeann) 01/17/25 1502 by Abbie Llanos Peripheral IV Placement Date: 01/06 05/02; Placement Time: 1239; Size: 20 G; Orientation: Anterior, Right; Location: Wrist; Site Prep: Chlorhexidine ; Insertion attempts: 2; Securement Method: Taped; Removal Date: 01/17/25; Removal Time: 1726; Removal Reason: Therapy Completed 01/17/25 1239 by Tessy Moyer RN 01/17/25 1726 by Kallie Shah RN ETT Placement Date 01/17; Placement Time 1355 (created via procedure documentation); Airway Size 7; Airway Cuffed Yes; Removal Date 01/17/25; Removal Time 1605 01/17/25 1355 by Ermelinda Llanos CRNA 01/17/25 1605 by Ermelinda Llanos CRNA documented in this encounter Social History Tobacco Use Types Packs/Day Years [...] on file documented as of this encounter OR Notes * Anesthesia Postprocedure Evaluation - Ermelinda Llanos CRNA - 01/17/2025 4:12 PM EST Patient: Winifred Sanders Procedure Summary Date: 01/17/25 Room / Location: [facility] OR [facility] OPERATING ROOM Anesthesia Start: 1347 Anesthesia Stop: Procedures: LEFT ACHILLES REPAIR WITH GRAFT, LEFT CALCANEAL SPUR RESECTION, GASTROCNEMIUS RECESSION LEFT (Left:Leg Lower) EXCISION, BONE, FOOT (Left: Foot) RECESSION, MUSCLE, GASTROCNEMIUS (Left: Leg Lower) Diagnosis: Spontaneous rupture of flexor tendon of left lower leg Left foot pain Acquired external rotation of foot, right Calcaneal spur of left foot (SEE PRIMARY DX) Surgeons: Reno Whalen DPM Responsible Provider: Ermelinda Llanos CRNA Anesthesia Type: general ASA Status: 2 Anesthesia Type: general Vitals Value Taken Time BP 102/49 01/17/25 16:11 Temp 98.9 01/17/25 16:12 Pulse 73 01/17/25 16:11 Resp 18 01/17/25 16:12 SpO2 95 % 01/17/25 16:11 Vitals shown include unfiled device data. Wt 94.3 kg (208 lb) BMI 36.85 kg/m?? Anesthesia Post Evaluation Patient participation: complete - patient participated Level of consciousness: awake Pain management: adequate Airway patency: patent Respiratory status: nasal cannula Cardiovascular status: stable Hydration status: stable Color: [place] Activity: Moves 4 extremities Inotropes/Vasopressors: N/A No notable events documented. Ermelinda Llanos CRNA 01/17/2025 4:12 PM EST K HOLDER * Anesthesia Procedure Notes - Ermelinda Llanos CRNA - 01/17/2025 2:16 PM EST Associated Order(s): Intubation Intubation Authorized by: Ermelinda Llanos CRNA Performed by: Ermelinda Llanos CRNA Date/Time: 01/17/2025 1:55 PM Reason: elective Indications and Patient Condition Indications for airway management: anesthesia and airway protection Sedation level: general anesthesia Preoxygenated: yesPatient position: sniffing no Mask difficulty assessment: 2 - vent by mask + OA or adjuvant +/- NMBA no Final Airway Details Final airway type: endotracheal airway Endotracheal tube type: ETT Cuffed: yes Successful intubation technique: direct laryngoscopy Adjuncts used in placement: intubating stylet and cricoid pressure Endotracheal tube insertion site: oral Blade: Amira Blade size: #3 ETT size (mm): 7.0 Cormack-Lehane Classification: grade I - full view of glottis Placement verified by: chest auscultation and capnometry Measured from: teeth Number of attempts at approach: 1 Number of other approaches attempted: 0 K HOLDER K HOLDER * Anesthesia Procedure Notes - Julian Barrera MD - 01/17/2025 1:32 PM EST Associated Order(s): Peripheral Nerve Block Peripheral Nerve Block Authorized by: Julian Barrera MD Performed by: Julian Barrera MD Patient location during procedure: pre-op Start time: 01/17/2025 1:10 PM End time: 01/17/2025 1:24 PM Reason for block: at surgeon's request and post-op pain management Preanesthetic Checklist Completed: patient identified, IV checked, site marked, risks and benefits discussed, surgical consent, monitors and equipment checked, pre-op evaluation and timeout performed Peripheral Block Patient position: supine Prep: ChloraPrep Patient monitoring: heart rate, vice president digital strategist and continuous pulse ox Block type: popliteal Laterality: left Injection technique: single-shot Guidance: ultrasound guided Local infiltration: lidocaine Needle Needle type: short-bevel Needle gauge: 20 G Needle length: 10 cm Needle localization: ultrasound guidance Test dose: negative Medications Administered ropivacaine (NAROPIN) (PF) injection 5 mg/mL (0.5%) - perineural 20 mL - 01/17/2025 1:10:00 PM Assessment Injection assessment: negative aspiration for heme, no paresthesia on injection, incremental injection and local visualized surrounding nerve on ultrasound Paresthesia pain: none Heart rate change: no Slow fractionated injection: yes K HOLDER * Anesthesia Procedure Notes - Julian Barrera MD - 01/17/2025 1:30 PM EST Associated Order(s): Peripheral Nerve Block Peripheral Nerve Block Authorized by: Julian Barrera MD Performed by: Julian Barrera MD Patient location during procedure: pre-op Start time: 01/17/2025 1:06 PM End time: 01/17/2025 1:10 PM Reason for block: at surgeon's request and post-op pain management Preanesthetic Checklist Completed: patient identified, IV checked, site marked, risks and benefits discussed, surgical consent, monitors and equipment checked, pre-op evaluation and timeout performed Peripheral Block Patient position: supine Prep: ChloraPrep Patient monitoring: heart rate, vice president digital strategist and continuous pulse ox Block type: adductor canal Laterality: left Injection technique: single-shot Guidance: ultrasound guided Local infiltration: lidocaine Needle Needle type: short-bevel Needle gauge: 20 G Needle length: 10 cm Needle localization: ultrasound guidance Test dose: negative Medications Administered midazolam (VERSED) injection - intravenous 2 mg - 01/17/2025 1:06:00 PM fentaNYL (SUBLIMAZE) injection - intravenous 100 mcg - 01/17/2025 1:06:00 PM BUPivacaine PF (MARCAINE) 0.5 % (5 mg/mL) injection - perineural 10 mL - 01/17/2025 1:06:00 PM Assessment Injection assessment: negative aspiration for heme, no paresthesia on injection, incremental injection and local visualized surrounding nerve on ultrasound Paresthesia pain: none Heart rate change: no Slow fractionated injection: yes K HOLDER * Anesthesia Preprocedure Evaluation - Julian Barrera MD - 01/17/2025 12:04 PM EST Anesthesia Pre Evaluation Ms. Winifred Sanders is a 44 y.o. female being evaluated for the following: Date/Time: 01/17/25 1325 Procedures: LEFT ACHILLES REPAIR WITH GRAFT, LEFT CALC SPUR RESECTION, GASTROC RECESSION LEFT (Left) EXCISION, BONE, FOOT (Left) RECESSION, MUSCLE, GASTROCNEMIUS (Left) Location: [facility] OR OPERATING ROOM Surgeons: Reno Whalen DPM Past Medical History: Diagnosis Date Anesthesia complication PT WOKE DURING SURGERY Arthritis Asthma Migraines Seasonal allergies Trigeminal neuralgia Obesity Past Surgical History: Procedure Laterality Date RIGHT FOOT SURGERY Right WITH HARDWARE AND MESH TUBAL LIGATION NPO Status P MN Physical Exam Airway Cardiovascular Dental Pulmonary Stridor: .pmh. Abdominal Anesthesia Plan ASA 2 Planned anesthetic: general Induction: intravenous Informed Consent- Anesthetic plan and risks discussed with patient. Plan discussed with ENGINEERING SCIENTIST. K HOLDER K HOLDER documented in this encounter Plan of Treatment Not on file documented as of this encounter Goals Goal Patient Goal Type Associated Problems Recent Progress Patient-Stated? Author Autogenerat ed Goal Care Plan Autogenerated Problem No Dorita Medina documented as of this encounter Procedures Procedure Name Priority Date/Time Associated Diagnosis Comments ANESTHESIA INTUBATION Routine 01/17/2025 1:55 PM EST HC NJX AA&/STRD SCIATIC NERVE Routine 01/17/2025 1:10 PM EST HC PRE SGL BLOCK,FEMORAL W/GEN ANES Routine 01/17/2025 1:06 PM EST documented in this encounter Results * AN SINGLE LUMEN INTUBATION (01/17/2025 1:55 PM EST) Narrative Ermelinda Llanos CRNA - 01/17/2025 1:55 PM EST Ermelinda Llanos CRNA 01/17/2025 2:19 PM Intubation Authorized by: Ermelinda Llanos CRNA Performed by: Ermelinda Llanos CRNA Date/Time: 01/17/2025 1:55 PM Reason: elective Indications and Patient Condition Indications for airway management: anesthesia and airway protection Sedation level: general anesthesia Preoxygenated: yesPatient position: sniffing no Mask difficulty assessment: 2 - vent by mask + OA or adjuvant +/- NMBA no Final Airway Details Final airway type: endotracheal airway Endotracheal tube type: ETT Cuffed: yes Successful intubation technique: direct laryngoscopy Adjuncts used in placement: intubating stylet and cricoid pressure Endotracheal tube insertion site: oral Blade: Amira Blade size: #3 ETT size (mm): 7.0 Cormack-Lehane Classification: grade I - full view of glottis Placement verified by: chest auscultation and capnometry Measured from: teeth Number of attempts at approach: 1 Number of other approaches attempted: 0 us Ermelinda Llanos CRNA ANESTHESIA ORDERABLES Mark rita Result - Final * HC NJX AA&/STRD SCIATIC NERVE (01/17/2025 1:10 PM EST) Julian Mukherjee MD - 01/17/2025 1:10 PM EST Julian Barrera MD 01/17/2025 1:33 PM Peripheral Nerve Block Authorized by: Julian Barrera MD Performed by: Julian Barrera MD Patient location during procedure: pre-op Start time: 01/17/2025 1:10 PM End time: 01/17/2025 1:24 PM Reason for block: at surgeon's request and post-op pain management Preanesthetic Checklist Completed: patient identified, IV checked, site marked, risks and benefits discussed, surgical consent, monitors and equipment checked, pre-op evaluation and timeout performed Peripheral Block Patient position: supine Prep: ChloraPrep Patient monitoring: heart rate, vice president digital strategist and continuous pulse ox Block type: popliteal Laterality: left Injection technique: single-shot Guidance: ultrasound guided Local infiltration: lidocaine Needle Needle type: short-bevel Needle gauge: 20 G Needle length: 10 cm Needle localization: ultrasound guidance Test dose: negative Medications Administered ropivacaine (NAROPIN) (PF) injection 5 mg/mL (0.5%) - perineural 20 mL - 01/17/2025 1:10:00 PM Assessment Injection assessment: negative aspiration for heme, no paresthesia on injection, incremental injection and local visualized surrounding nerve on ultrasound Paresthesia pain: none Heart rate change: no Slow fractionated injection: yes us Julian Barrera MD ANESTHESIA ORDERABLES Fin al Result * HC PRE SGL BLOCK,FEMORAL W/GEN ANES (01/17/2025 1:06 PM EST) Julian Mukherjee MD - 01/17/2025 1:06 PM EST Julian Barrera MD 01/17/2025 1:32 PM Peripheral Nerve Block Authorized by: Julian Barrera MD Performed by: Julian Barrera MD Patient location during procedure: pre-op Start time: 01/17/2025 1:06 PM End time: 01/17/2025 1:10 PM Reason for block: at surgeon's request and post-op pain management Preanesthetic Checklist Completed: patient identified, IV checked, site marked, risks and benefits discussed, surgical consent, monitors and equipment checked, pre-op evaluation and timeout performed Peripheral Block Patient position: supine Prep: ChloraPrep Patient monitoring: heart rate, vice president digital strategist and continuous pulse ox Block type: adductor canal Laterality: left Injection technique: single-shot Guidance: ultrasound guided Local infiltration: lidocaine Needle Needle type: short-bevel Needle gauge: 20 G Needle length: 10 cm Needle localization: ultrasound guidance Test dose: negative Medications Administered midazolam (VERSED) injection - intravenous 2 mg - 01/17/2025 1:06:00 PM fentaNYL (SUBLIMAZE) injection - intravenous 100 mcg - 01/17/2025 1:06:00 PM BUPivacaine PF (MARCAINE) 0.5 % (5 mg/mL) injection - perineural 10 mL - 01/17/2025 1:06:00 PM Assessment Injection assessment: negative aspiration for heme, no paresthesia on injection, incremental injection and local visualized surrounding nerve on ultrasound Paresthesia pain: none Heart rate change: no Slow fractionated injection: yes us Julian Barrera MD ANESTHESIA ORDERABLES Fin al Result documented in this encounter Visit Diagnoses Not on filedocumented in this encounter Administered Medications Inactive Administered Medications - up to 3 most recent administrations Medication Order MAR Action Action Date Dose Rate Site bupivacaine (PF) (MARCAINE, SENSORCAINE) injection 5 mg/mL 0.5% perineural, Starting on Wed01/17/25 at 1306, Anesthesia Intra-op Given 01/17/2025 1:06 PM EST 10 mLs ceFAZolin (ANCEF) IVPB 2 g/50 mL D5W (premix) 2 g Once, intravenous, Administer over 30 Minutes, On Wed01/17/25 at 1200, For 1 dose, Administer within 60 minutes of incision or procedure start., Pre-op, Please choose an indication: Surgical Prophylaxis Given 01/17/2025 1:57 PM EST 2 g dexAMETHasone (DECADRON) injection As needed, intravenous, Starting on Wed01/17/25 at 1350, Anesthesia Intra-op Given 01/17/2025 1:50 PM EST 4 mg electrolyte-R (NORMOSOL-R) infusion intravenous, Continuous, Starting on Wed01/17/25 at 1200, Pre-op New Bag 01/17/2025 3:03 PM EST 100 mL/hr 100 mL/hr Rate/Dose Change 01/17/2025 1:49 PM EST 100 mL/hr 100 mL/ hr New Bag 01/17/2025 12:40 PM EST 1,000 mLs fentaNYL PF (SUBLIMAZE) injection intravenous, Starting on Wed01/17/25 at 1306, Anesthesia Intra-op Given 01/17/2025 2:59 PM EST 50 mcg Given 01/17/2025 1:06 PM EST 100 mcg glycopyrrolate (ROBINUL) injection As needed, intravenous, Starting on Wed01/17/25 at 1550, Anesthesia Intra-op Given 01/17/2025 3:50 PM EST 0.2 mg lidocaine (XYLOCAINE) injection 2% As needed, intravenous, Starting on Wed01/17/25 at 1350, Anesthesia Intra-op Given 01/17/2025 1:50 PM EST 60 mg midazolam (VERSED) injection intravenous, Starting on Wed01/17/25 at 1306, Anesthesia Intra-op Given 01/17/2025 1:06 PM EST 2 mg neostigmine methylsulfate (PROSTIGMINE) injection As needed, intravenous, Starting on Wed01/17/25 at 1550, Anesthesia Intra-op Given 01/17/2025 3:50 PM EST 2 mg ondansetron (ZOFRAN) injection As needed, intravenous, Starting on Wed01/17/25 at 1548, Anesthesia Intra-op Given 01/17/2025 3:48 PM EST 4 mg propofol (DIPRIVAN) injection 10 mg/mL bolus As needed, intravenous, Starting on Wed01/17/25 at 1350, Anesthesia Intra-op Given 01/17/2025 1:50 PM EST 200 mg rocuronium (ZEMURON) injection As needed, intravenous, Starting on Wed01/17/25 at 1350, Anesthesia Intra-op Given 01/17/2025 1:50 PM EST 30 mg ropivacaine PF (NAROPIN) 0.5 % (5 mg/mL) injection perineural, Starting on Wed01/17/25 at 1310, Anesthesia Intra-op Given 01/17/2025 1:10 PM EST 20 mLs documented in this encounter Additional Health Concerns Active Problems Noted Date Diagnosed Date Autogenerated Problem 12/20/2024 documented as of this encounter Care Teams Aircraft Machinist Relationship Specialty Start Date End Date Radha Gonzalez, CERTIFIED FRAUD EXAMINER [address] [place] [address] PCP - General Nurse Practitioner 01/04/25 documented as of this encounter
[2025-01-23 14:41] LABS: Coronavirus 19, PCR Not Detected (NotDetected); Influenza A, PCR Not Detected (NotDetected); Influenza B, PCR Not Detected (NotDetected)
[2025-01-23 15:18] LABS: Hematocrit 33.9 % (37.0-47.0); Hemoglobin 11.1 g/dL (12.2-16.2); Immature Granulocytes % 0.2 %; Mean Corpuscular HGB Conc 32.7 g/dL (31.8-35.4); Mean Corpuscular Hemoglobin 27.0 pg (27.0-31.2); Mean Corpuscular Volume 82.5 fl (81-99); Nucleated Red Blood Cells % 0 %; Platelet Count 344 K/mm3 (142-424); Red Blood Count 4.11 M/mm3 (4.20-5.40); Red Cell Distribution Width-SD 42.1 fL; White Blood Count 4.9 K/mm3 (4.8-10.8)
[2025-01-23 16:17] LABS: Albumin Level 3.9 g/dl (3.5-5.0); Chloride 102 mmol/L (98-107); Potassium 4.5 mmoL/L (3.5-5.1); Sodium 137 mmol/L (136-145)
[2025-01-23 16:19] LABS: Alanine Aminotransferase 14 U/L (12-78); Aspartate Amino Transferase 27 U/L (14-36); Bilirubin,Total 0.2 mg/dl (0.2-1.3); Blood Urea Nitrogen 11 mg/dl (7-17); Creatinine,Serum 0.60 mg/dl (0.52-1.04); Estimated Glomerular Filt Rate 109 ml/min (>60); GFR (African American) 132 ML/MIN (>60)
[2025-01-23 16:20] LABS: Albumin/Globulin Ratio 1.3 (1.1-1.8); Alkaline Phosphatase 107 U/L (38-126); Anion Gap 16.5 mEq/L (5-15); Calcium 9.0 mg/dl (8.4-10.2); Carbon Dioxide 23 mmol/L (22.0-30.0); Globulin 3.0 g/dL (1.3-3.2); Glucose 79 mg/dl (74-100); Magnesium 1.8 mg/dl (1.6-2.3); Total Protein,Serum 6.9 g/dl (6.3-8.2)
[2025-01-23 16:50] LABS: Thyroid Stimulating Hormone 0.81 uIU/mL (0.465-4.68)
--- OUTSIDE RECORDS SUMMARY | 2025-01-24 13:07 | XMS_ITS | Encounter Summary ---
Author Organization [employer] ([place], [place], [place], [place], [place]) Address [address] [place] [address] Care Team Providers Care Jigger Operator Name Role Phone Radha Gonzalez APRN Primary Care Provider [phone] Encounter Details Date Type Department Care Team (Late st Contact Info) Description 07/25/2018 Transcribed Document [facility] Family Medicine [address] [place] [address] ProviderSamia MD [address] [place], [place] [phone] Social History Tobacco Use Types Packs/Day Years Used Date Smoking Tobacco: Never Assessed Comments Unknown Sex and Gender Information Value Date Recorded Sex Assigned at Female 09/04/2021 5:04 PM CDT Legal Sex Female 6:35 PM CDT Gender Identity Female 09/04/2021 5:04 PM CDT Sexual Orientation Not on file documented as of this encounter Miscellaneous Notes * Cerner Conversion Note - Samia Crawford MD - 07/25/2018 1:47 PM CDT ED Assessment [...] Communication Barrier : None Primary Language : [place] Any Spiritual/Cultural Needs or Requests : No [...] at bedside. Pt VSS at this time. Austyn Russell Rn - 07/25/2018 14:28 EDT Electronically signed by [facility] Conversion Electrician Supervisor Cerner at 06/26/2022 6:27 PM CDT documented in this encounter Plan of Treatment Not on file documented as of this encounter Visit Diagnoses Not on filedocumented in this encounter Care Teams Jigger Operator Relationship Specialty Start Date End Date Radha Gonzalez, ASHA [address] [place] [address] PCP - General Nurse Practitioner 01/04/25 documented as of this encounter
--- OUTSIDE RECORDS SUMMARY | 2025-01-24 13:07 | XMS_ITS | Encounter Summary ---
Author Organization [employer] ([place], [place], [place], [place], [place]) Address [address] [place] [address] Care Team Providers Care Compliance Clerk Name Role Phone Radha Gonzalez APRN Primary Care Provider Encounter Details Date Type Department Care Team (Late st Contact Info) Description 07/25/2018 Transcribed Document [facility] [place] Medicine [address] [place] [address] ProviderSamia MD [address] [place], [place] [phone] Social History Tobacco Use Types Packs/Day Years [...] Conversion Note - Samia ProviderMD - 07/25/2018 4:51 PM CDT Electronically signed by [facility] Conversion Project Controls Specialist Nereyda at 06/26/2022 6:20 PM CDT documented in this encounter Plan of Treatment Not on file documented as of this encounter Visit Diagnoses Not on filedocumented in this encounter Care Teams Compliance Clerk Relationship Specialty Start Date End Date Radha Gonzalez APRN [address] [address] PCP - General Nurse Practitioner 01/04/25 documented as of this encounter
--- OUTSIDE RECORDS SUMMARY | 2025-01-24 13:07 | XMS_ITS | Referral Summary ---
Author Organization [employer] ([place], [place], [place], [place], [place]) Address [address] [place] [address] Care Team Providers Care Sandblast Carver Name Role Phone GonzalezRadha roldan ASHA Primary Care Provider [phone] Encounters Date Type Department Care Team Description 01/17/2025 Travel 01/17/2025 1:25 PM EST - 01/17/2025 3:53 PM EST Surgery [facility] Surgery Department [address] [place] [address] Reno Whalen, DPM LEFT ACHILLES REPAIR WITH GRAFT, LEFT CALCANEAL SPUR RESECTION, GASTROCNEMIUS RECESSION LEFT 01/17/2025 1:47 PM EST Anesthesia Event [facility] Surgery Department [address] [place] [address] Ermelinda Llanos CRNA Booker, Philip Craig, MD 01/17/2025 11:26 AM EST - 01/17/2025 5:45 PM EST Hospital Encounter [facility] Surgery Department [address] [place] [address] Reno Whalen, DPM Spontaneous rupture of flexor tendon of left lower leg; Left foot pain; Acquired external rotation of foot, right; Calcaneal spur of left foot Discharge Disposition: Home or Self Care 01/04/2025 Travel 01/04/2025 12:53 PM EDT - 01/04/2025 11:59 PM EDT Hospital Encounter [facility] Preadmission Testing [address] [facility] [address] [place] [address] Radha Gonzalez APRN Preop examination (Primary Dx) Discharge Disposition: Home or Self Care from Last 3 Months Allergies Active Allergy Reactions Criticality Noted Date Comments Peanut Anaphylaxis High 01/04/2025 Medications norgestimate-ethi nyl estradioL (ORTHO-CYCLEN) 0.25-0.035 mg per tablet Take 1 tablet by mouth daily. 5 Active OXcarbazepine (TRILEPTAL) 300 MG tablet Take 1 tablet (300 mg total) by mouth 3 (three) times daily. 5 Active amitriptyline (ELAVIL) 50 MG tablet Take 1 tablet (50 mg total) by mouth nightly. 5 Active Nurtec ODT 75 mg TbDL Take 1 tablet by mouth every other day. 5 Active pantoprazole (PROTONIX) 20 MG tablet Take 1 tablet (20 mg total) by mouth daily. Active azelastine (ASTELIN) 137 mcg (0.1 %) nasal spray Administer 1 spray into each nostril 2 (two) times daily Use in each nostril as directed. Active montelukast (SINGULAIR) 10 mg tablet Take 1 tablet (10 mg total) by mouth nightly. Active levocetirizine (XYZAL) 5 MG tablet Take 1 tablet (5 mg total) by mouth every evening. Active ibuprofen (MOTRIN) 800 MG tablet Take 1 tablet (800 mg total) by mouth 2 (two) times daily. Active EPINEPHrine 0.3 mg/0.3 mL syrg Inject as directed. Active multivitamin per tablet Take 1 tablet by mouth daily. Active acetaminophen (TYLENOL) 500 MG tablet Take 1 tablet (500 mg total) by mouth every 6 (six) hours as needed for pain. Active diphenhydrAMINE (BENADRYL) 25 mg capsule Take 1 capsule (25 mg total) by mouth every 6 (six) hours as needed for itching. Active beclomethasone dipropionate (QVAR INHL) Inhale 2 puffs by mouth 2 (two) times daily. Active albuterol 90 mcg/actuation inhaler Inhale by mouth every 6 (six) hours as needed for wheezing. Active Social History Tobacco Use Types Packs/Day Years Used Date Smoking Tobacco: Never Smokeless Tobacco: Never Tobacco Cessation:Counseling Given: Not Answered Alcohol Use Standard Drinks/Week Comments Not Currently 0 (1 standard drink = 0.6 oz pur e alcohol) Comments No Sex and Gender Information Value Date Recorded Sex Assigned at Female 09/04/2021 5:04 PM CDT Legal Sex Female 6:35 PM CDT Gender Identity Female 09/04/2021 5:04 PM CDT Sexual Orientation Not on file Last Filed Vital Signs Vital Sign Reading Time Taken Comments Blood Pressure 132/60 01/17/2025 5:05 PM EST Pulse 86 01/17/2025 5:05 PM EST Temperature 36.3 C (97.4 F) 01/17/2025 5:05 PM EST Respiratory Rate 16 01/17/2025 5:05 PM EST Oxygen Saturation 98% 01/17/2025 5:05 PM EST Inhaled Oxygen Concentration - - Weight 94.3 kg (208 lb) 01/17/2025 12:50 PM EST Height 160 cm (5' 3 ) 01/04/2025 1:08 PM EDT Body Mass Index 36.85 01/04/2025 1:08 PM EDT Plan of Treatment Not on file Goals Goal Patient Goal Type Associated Problems Recent Progress Patient-Stated? Author Autogenerat ed Goal Care Plan Autogenerated Problem No Dorita Medina Medical Devices Implanted Type Area Doughmaker Device Identifier Shelf Expiration Date Model / Serial / Lot Westlake Knotless 4.5mm -9145 - [id number] Implanted:Qty : 1 on 01/17/2025 by Reno Whalen DPM at [facility] IMPLANTS Left: Leg [employer] 03/24/2029 CM-9145 / / [id number] Westlake Knotless 4.5mm -9145 - [id number] Implanted:Qty : 1 on 01/17/2025 by Reno Whalen DPM at [facility] IMPLANTS Left: Leg [employer] 01/25/2029 CM-9145 / / [id number] Cord Neox 3.0x3.0cm Rt Nx-Ur-3030 - [id number] Implanted:Qty : 1 on 01/17/2025 by Reno Whalen DPM at [facility] IMPLANTS Left: Achilles Tendon BIOTISSUE 07/19/2026 NX-UR-3030 / [id number] / Procedures Procedure Name Priority Date/Time Associated Diagnosis Comments XR FOOT 3 VIEWS LEFT STAT 01/17/2025 4:35 PM EST TISSUE EXAM (CHERY ORNELAS) AP Routine 01/17/2025 3 :02 PM EST Spontaneous rupture of flexor tendon of left lower leg Left foot pain Acquired external rotation of foot, right Calcaneal spur of left foot ANESTHESIA INTUBATION Routine 01/17/2025 1:55 PM EST LA GASTROCNEMIUS RECESSION 01/17/2025 1:47 PM EST Spontaneous rupture of flexor tendon of left lower leg Left foot pain Acquired external rotation of foot, right Calcaneal spur of left foot Case Notes FADY LA OSTECTOMY CALCANEUS 01/17/2025 1:47 PM EST Spontaneous rupture of flexor tendon of left lower leg Left foot pain Acquired external rotation of foot, right Calcaneal spur of left foot Case Notes FAD[facility] LA RPR PRIMARY OPEN/PRQ RUPTURED ACHILLES W/GRAFT 01/17/2025 1:47 PM EST Spontaneous rupture of flexor tendon of left lower leg Left foot pain Acquired external rotation of foot, right Calcaneal spur of left foot Case Notes FADY HC NJX AA&/STRD SCIATIC NERVE Routine 01/17/2025 1:10 PM EST HC PRE SGL BLOCK,FEMORAL W/GEN ANES Routine 01/17/2025 1:06 PM EST FS_MODEL_IP POCT , URINE Routine 01/17/2025 12:49 PM EST NOVA GLUCOSE POC Routine 01/17/2025 11:4 3 AM EST EKG-SCANNED 01/17/2025 COMPREHENSIVE METABOLIC PANEL Routine 01/04/2025 1:07 PM EDT Preop examination CBC W/ AUTO DIFF Routine 01/04/2025 1:07 PM EDT Preop examination FS_MODEL_IP_ECG 12-LEAD Routine 01/04/2025 12:09 PM EDT Preop examination from Last 3 Months Results * XR foot 3 views left [...] Dr. Steve Hawkins. Transcribed by Erika Arauz. Reno Whalen [facility] DIAGNOSTIC IMAGING ORDER CHRISTY Final Result * Tissue Exam (01/17/2025 3:02 PM EST) AP RESULT See Note: PATHOLOGY AND CYTOLOGY [...] white fibrous tissue and cardona-yellow, jagged bone. Rn Social Work portions are wrapped and submitted in block A1 following decalcification. MTS Tissue BONE STRUCTURE / Unknown 01/17/2025 3:02 PM EST Reno Whalen DP PATHOLOGY/CYTOLOGY ORDERABLE S Final Result Performing Organization Address City/State/[facility] Co de Phone Number [facility] [address] [place] [address] * AN SINGLE LUMEN INTUBATION (01/17/2025 1:55 [...] 1 Number of other approaches attempted: 0 Ermelinda Llanos CRNA ANESTHESIA ORDERABLES Mark rita [...] supine Prep: ChloraPrep Patient monitoring: heart rate, surveillance monitor and continuous pulse ox Block type: popliteal [...] rate change: no Slow fractionated injection: yes Julian Barrera MD ANESTHESIA ORDERABLES Fin al [...] supine Prep: ChloraPrep Patient monitoring: heart rate, surveillance monitor and continuous pulse ox Block type: adductor [...] rate change: no Slow fractionated injection: yes Julian Barrera MD ANESTHESIA ORDERABLES Fin al Result * POCT , urine (01/17/2025 12:49 PM EST) [facility] POC, URINE HCG Negative Negative INTERNAL QC (VALID/INVALID) Valid Kit Lot Number [id number] Expiration Date 02/21/26 01/17/2025 12:4 9 PM EST Julian Barrera MD FS_MODEL_IP_POINT OF CARE TEST ENTER/EDIT ORDERABLES Final Result * Glucose, Nova Meter (01/17/2025 11:43 AM EST) [facility] POC-GLUCOSE 87 70 - 110 mg/dL 01/17/2025 11:49 AM EST [facility] Comment:In the event of poor peripheral blood flow, venous or arterial blood should be used due to the potential of erroneous results. Cake Inspector [id number] 01/17/2025 11:49 AM EST [facility] Blood WHOLE BLOOD / Unknown 01/17/2025 11:43 AM EST 01/17/2025 11:49 AM EST us Reno Whalen DPM POINT OF CARE TEST ORDERABLE S Final Result [facility] [address] [phone] * EKG-SCANNED (01/17/2025) Narrative 01/17/2025 Ordered by an unspecified provider. us Default Scanning Provider SCAN ORDERS Final Result * (ABNORMAL) CBC with automated diff (01/04/2025 1:07 PM EDT) WBC 5.8 3.9 - 10.0 K/ L 01/04/2025 1:40 PM EDT [facility] RBC 4.15 3.93 - 5.22 M/ L 01/04/2025 1:40 PM EDT [facility] Hemoglobin 11.3 11.2 - 15.7 GM/DL 01/04/2025 1:40 PM EDT [facility] Hematocrit 35.1 34.1 - 44.9 % 01/04/2025 1:40 PM EDT [facility] MCV 85 79 - 95 fL 01/04/2025 1:40 PM EDT [facility] MCH 27.2 25.6 - 32.2 pg 01/04/2025 1:40 PM EDT [facility] MCHC 32.2 32.2 - 36.5 GM/DL 01/04/2025 1:40 PM EDT [facility] RDW 14.2 11.6 - 14.4 % 01/04/2025 1:40 PM EDT [facility] Platelets 280 163 - 369 K/CU MM 01/04/2025 1:40 PM EDT [facility] MPV 10.1 9.4 - 12.4 fL 01/04/2025 1:40 PM EDT [facility] % Neutros 56 34 - 71 % 01/04/2025 1:40 PM EDT [facility] % Lymphs 28 19 - 53 % 01/04/2025 1:40 PM EDT [facility] % Monos 7 4 - 13 % 01/04/2025 1:40 PM EDT [facility] % Eos 7.5(H) 1.0 - 7.0 % 01/04/2025 1:40 PM EDT [facility] % Baso 1 0 - 1 % 01/04/2025 1:40 PM EDT [facility] # Neutros 3.24 1.56 - 6.13 K/ L 01/04/2025 1:40 PM EDT [facility] # Lymphs 1.63 1.18 - 3.74 K/ L 01/04/2025 1:40 PM EDT [facility] # Monos 0.40 0.24 - 0.82 K/ L 01/04/2025 1:40 PM EDT [facility] # Eos 0.43 0.04 - 0.54 K/ L 01/04/2025 1:40 PM EDT [facility] # Baso 0.03 0.01 - 0.08 K/ L 01/04/2025 1:40 PM EDT [facility] % Imm Grans 0.30 0.00 - 0.60 % 01/04/2025 1:40 PM EDT [facility] # IG 0.02 0.00 - 0.05 K/uL 01/04/2025 1:40 PM EDT [facility] Blood Venipuncture / Unknown 01/04/2025 1:07 PM EDT 01/04/2025 1:36 PM EDT Narrative [facility] - 01/04/2025 1:40 PM EDT [...] DPM LAB BLOOD ORDERABLES Final R esult [facility] [address] [place] [address], [facility] [phone] * (ABNORMAL) Comprehensive metabolic panel (01/04/2025 1:07 PM EDT) Sodium 136 136 - 146 meq/L 01/04/2025 1:59 PM EDT [facility] Potassium 4.0 3.5 - 5.1 meq/L 01/04/2025 1:59 PM EDT [facility] Chloride 105 102 - 112 meq/L 01/04/2025 1:59 PM EDT [facility] CO2 27 21 - 32 meq/L 01/04/2025 1:59 PM EDT [facility] Calcium 8.8 8.5 - 10.1 mg/dL 01/04/2025 1:59 PM EDT [facility] Glucose 102(H) 74 - 100 mg/dL 01/04/2025 1:59 PM EDT [facility] BUN 9 7 - 22 mg/dL 01/04/2025 1:59 PM EDT [facility] Creatinine 0.81 0.55 - 1.02 mg/dL 01/04/2025 1:59 PM EDT [facility] BUN/Creatinine 11 8 - 20 01/04/2025 1:59 PM EDT [facility] Albumin 3.5 3.4 - 5.0 g/dL 01/04/2025 1:59 PM EDT [facility] Alkaline Phosphatase 115 27 - 136 U/L 01/04/2025 1:59 PM EDT [facility] ALT 18 12 - 78 U/L 01/04/2025 1:59 PM EDT [facility] AST 15 5 - 37 U/L 01/04/2025 1:59 PM EDT [facility] Total Bilirubin 0.2 0.2 - 1.3 mg/dL 01/04/2025 1:59 PM EDT [facility] Protein, Total 7.1 6.4 - 8.2 gm/dL 01/04/2025 1:59 PM EDT [facility] Anion Gap 8(L) 9 - 20 01/04/2025 1:59 PM EDT [facility] A/G Ratio 1.0(L) 1.1 - 2.5 01/04/2025 1:59 PM EDT [facility] Globulin 3.6 1.5 - 4.5 g/dL 01/04/2025 1:59 PM EDT [facility] Osmolality Calc 270.8 mOsm/kg 1:59 PM EDT [facility] eGFR (mL/min/1.73m2) >60 >=60 mL/min/1.7 3m2 01/04/2025 1:59 PM EDT [facility] Comment:ESTIMATED GFR IS NOT ACCURATE CREATININE CLEARANCE IN PREDICTING GLOMERULAR FILTRATION RATE. ESTIMATED GFR IS NOT APPLICABLE FOR DIALYSIS PATIENTS. Blood Venipuncture / Unknown 01/04/2025 1:07 PM EDT 01/04/2025 1:36 PM EDT us Reno Whalen DPM LAB BLOOD ORDERABLES Final R esult Performing Organization Address City/[facility] Co de Phone Number [facility] [address] [phone] * ECG 12 lead (01/04/2025 12:09 PM EDT) VENTRICULAR RATE EKG/MIN 99 BPM GE MUSE ATRIAL RATE (MCT) 99 BPM GE MUSE LA Interval 182 ms GE MUSE QRS-INTERVAL (MSEC) 84 ms GE MUSE QT Interval 332 ms GE MUSE QTC Interval 426 ms GE MUSE P [place] 52 degrees GE MUSE R AXIS (MCT) 71 degrees GE MUSE T Wave [place] 47 degrees GE MUSE [place] Diagnosis Normal sinus rhythm Normal ECG Confirmed by Jaylon MONTANEZ SUZANNE ([id number]) on 01/04/2025 6:03:54 PM GE MUSE 01/04/2025 12:0 9 PM EDT 01/04/2025 6:03 PM EDT us Reno CHAVEZ ECG ORDERABLES Final Result Performing Organization Address City/[facility]/ZIP Co de Phone Number GE MUSE from Last 3 Months Additional Health Concerns Active Problems Noted Date Diagnosed Date Autogenerated Problem 12/20/2024 Insurance WORK COMP OTHER WORK COMP OTHER Advance Directives For more information, please contact: [phone] * Full Code (Latest Code Status on File) Date Activated Date Inactivated Comments 01/17/2025 10:44 AM 01/17/2025 6:55 PM Care Teams Sandblast Carver Relationship Specialty Start Date End Date Radha Gonzalez, ASHA [address] [address] PCP - General Nurse Practitioner 01/04/25
--- OUTSIDE RECORDS SUMMARY | 2025-01-24 13:08 | XMS_ITS | Encounter Summary ---
Author Organization [employer] ([place], [place], [place], [place], [place]) Address [address] [place] [address] Care Team Providers Care Sectionizer Name Role Phone Radha Gonzalez APRN Primary Care Provider Encounter Details Date Type Department Care Team (Late st Contact Info) Description 07/25/2018 Transcribed Document [facility] [place] [address] [place] [address] ProviderSamia MD [address] [place], [place] [id number] Social History Tobacco Use Types Packs/Day Years [...] Note - Samia Crawford MD - 07/25/2018 5:10 PM CDT [address] [address] WINIFRED SANDERS :1980 Visit Time:07/25/2018 Your Visit Summary Your Care Team Admitting Physician - ALEX BLACKMAN MD-[facility] Attending Physician - ALEX BLACKMAN MD-EM[facility] Primary Care Physician - JOHANNE ARTIS MD-[facility] Referring Physician - Skip, SELF REFERRED Your Diagnosis Allergic reaction - minor Allergy to peanuts Anxiety reaction Patient Portal Reminder: Be sure to sign up for the [facility] patient portal, which gives you 28/09 access to your medical information ??? including these discharge instructions ??? using your computer, smartphone, or tablet. Just go to [employer] to get started. Questions? Call . You [...] 2 to 3 days Where: [address] [facility] (1) Allergies Peanuts Immunizations This Visit No [...] range between ( 1.0 and 7.0 ) [place] #: 0.35 K/uL -- Normal range between ( 0.24 and 0.82 ) Eos #: 0.04 K/uL -- Normal range between ( 0.04 and 0.54 ) [place] %: 5.3 % -- Normal range between [...] Follow these instructions at home: ??? Take dmao-jpz-wzvqmrc and prescription medicines only as told by [...] 06/19/2013 Document Revised: 01/12/2017 Document Reviewed: 01/12/2017 [employer] Patient Education ?? 2019 [employer]. Food Allergy A food allergy is [...] you are at a restaurant, tell your banquet server that you have an allergy. Ask if [...] 08/12/2010 Document Revised: 07/30/2016 Document Reviewed: 12/04/2014 [employer] Patient Education ?? 2019 [employer]. Asthma, Adult Asthma is a long-term (chronic) [...] pollute the air. These may include household restaurant hostess, wood smoke, smog, or chemical odors. ??? [...] you are not home. Use a vacuum auto cleaner with a HEPA filter if possible. [...] and water are not available, use hand supervisor advertising dispatch clerks. ??? Do not allow anyone to smoke in your home. General instructions ??? Take sorv-gbs-dkbxlbg and prescription medicines only as told by [...] 08/10/2008 Document Revised: 03/29/2017 Document Reviewed: 03/29/2017 [employer] Interactive Patient Education ?? 2019 [employer]. Emergency Awareness and Preventative Care STROKE is [...] Assistance with quitting is available by contacting 9-333-HULP-NOW. This is a free resource providing counseling, [...] was given the opportunity to ask questions. Patient/Automatic Data Processing Planner Name: Patient/Automatic Data Processing Planner Signature: Relationship to Patient: Clinician/Hospital Automatic Data Processing Planner Signature: Please Provide a Telephone Number Where You Can Be Reached: Is it Permissible To Leave a Message? Date: documented in this encounter Plan of Treatment Not on file documented as of this encounter Visit Diagnoses Not on filedocumented in this encounter Care Teams Sectionizer Relationship Specialty Start Date End Date Radha Gonzalez, LINE THERAPIST [address] [address] PCP - General Nurse Practitioner 01/04/25 documented as of this encounter
--- OUTSIDE RECORDS SUMMARY | 2025-01-24 13:08 | XMS_ITS | Encounter Summary ---
Author Organization [employer] ([place], [place], [place], [place], [place]) Address [address] [place] [address] Care Team Providers Care Carpenter Mold Name Role Phone Radha Gonzalez APRN Primary Care Provider Encounter Details Date Type Department Care Team (Latest Contact Info) Description 01/17/2025 Travel Social History Tobacco Use Types Packs/Day Years [...] on file documented as of this encounter Plan of Treatment Not on file documented as of this encounter Goals Goal Patient Goal Type Associated Problems Recent Progress Patient-Stated? Author Autogenerat ed Goal Care Plan Autogenerated Problem No Dorita Medina documented as of this encounter Visit Diagnoses Not on filedocumented in this encounter Additional Health Concerns Active Problems Noted Date Diagnosed Date Autogenerated Problem 12/20/2024 documented as of this encounter Care Teams Carpenter Mold Relationship Specialty Start Date End Date Radha Gonzalez APRN [address] [facility] [address] [place] [address] PCP - General Nurse Practitioner 01/04/25 documented as of this encounter
--- OUTSIDE RECORDS SUMMARY | 2025-01-24 13:08 | XMS_ITS | Encounter Summary ---
Author Organization [employer] ([place], [place], [place], [place], [place]) Address [address] [place] [address] Care Team Providers Care Cable Tester Name Role Phone Radha Gonzalez APRN Primary Care Provider Encounter Details Date Type Department Care Team (Late st Contact Info) Description 07/25/2018 Transcribed Document [facility] [place] [address] [place] [address] ProviderSamia MD [address] [place] [address] Social History Tobacco Use Types [...] Conversion Note - Samia ProviderMD - 07/25/2018 1:47 PM CDT ED Triage Entered On: 07/25/2018 14:02 EDT Performed On: 07/25/2018 13:56 EDT by YUNG DIETZ AUTOMOTIVE PORTER Triage Across the Room Triage Date/Time : 07/25/2018 13:56 EDT Chief Complaint : pt with allergic reaction , was in a room with peanut, did not ingest or touch, gave her epi and took benadryl 25 min guard captain. p/w/d. pt breathing fast with o2 sats 100% YUNG DIETZ RN - 07/25/2018 13:56 EDT DCP GENERIC CODE Tracking Acuity : 3 - Urgent Tracking Group : [facility] YUNG DIETZ RN - 07/25/2018 13:56 [...] 07/25/2018 14:02:01 EDT) Problems(Active) Asthma (SNOMED CT :230300755 ) Name of Problem: Asthma ; Recorder: YUNG DIETZ RN; Confirmation: Confirmed ; Classification: Medical ; Code: [id number] ; Contributor System: Financ[employer]udes ; Last Updated: 07/25/2018 14:00 EDT ; Life Cycle Date: 07/25/2018 ; Life Cycle Status: Active ; Vocabulary: SNOMED CT Migraine (SNOMED CT :23055355 ) Name of Problem: Migraine ; Recorder: YUNG DIETZ RN; Confirmation: Confirmed ; Classification: Medical ; Code: [id number] ; Contributor System: [employer] ; Last Updated: 07/25/2018 14:00 EDT ; Life Cycle Date: 07/25/2018 ; Life Cycle Status: Active ; Vocabulary: SNOMED CT Diagnoses(Active) Allergic reaction - minor Date: 07/25/2018 ; Diagnosis Type: Reason For Visit ; Confirmation: Complaint of ; Clinical Dx: Allergic reaction - minor ; Classification: Medical ; Clinical Service: Emergency medicine ; Code: PNED ; Probability: 0 ; Diagnosis Code: [id number] ED Height and Weight Height Source : Stated Height Entry Format : Carter Height, Feet : 5 ft(Converted to: 152 cm, 60 Inch) Height, Inches : 6 Inch(Converted to: 0 ft 6 Inch, 15.24 cm) Clinical Height : 167.64 cm Weight Source, ED : Standing scale Weight Entry Format : Carter Weight, Pounds : 150 lb Clinical Dosing Weight : 68.18 kg Body Surface Area (BSA) : 1.77 m2 Body Mass Index : 24.3 kg/m2 (HI) [place] Body Weight (IBW) : 58.88 kg YUNG [...] on filedocumented in this encounter Care Teams Cable Tester Relationship Specialty Start Date End Date Radha Gonzalez APRN [address] [address] PCP - General Nurse Practitioner 01/04/25 documented as of this encounter
--- OUTSIDE RECORDS SUMMARY | 2025-01-24 13:09 | XMS_ITS | Encounter Summary ---
Author Organization [employer] ([place], [place], [place], [place], [place]) Address [address] [place] [address] Care Team Providers Care Computer Operations Supervisor Name Role Phone Radha Gonzalez APRN Primary Care Provider Encounter Details Date Type Department Care Team (Late st Contact Info) Description 07/25/2018 Transcribed Document [facility] [place] [address] [place] [address] ProviderSamia MD [address] [place], [place] [phone] Social History Tobacco Use Types Packs/Day Years [...] Samia ProviderMD - 07/25/2018 5:10 PM CDT ED Discharge Entered On: 07/25/2018 17:10 EDT Performed On: 07/25/2018 17:10 EDT by Austyn Russell Torpedo Shooter Process Patient Disposition : Discharge Teaching Evaluation : Verbalizes understanding IV Discontinued : Yes IV Therapy Comment : Cath intact Austyn Russell, Rn - 07/25/2018 17:10 EDT documented in this encounter Plan of Treatment Not on file documented as of this encounter Visit Diagnoses Not on filedocumented in this encounter Care Teams Computer Operations Supervisor Relationship Specialty Start Date End Date Radha Gonzalez, TYRE FITTER [address] [place] [address] PCP - General Nurse Practitioner 01/04/25 documented as of this encounter
--- OUTSIDE RECORDS SUMMARY | 2025-01-24 13:09 | XMS_ITS | Encounter Summary ---
Author Organization [employer] ([place], [place], [place], [place], [place]) Address [address] [place] [address] Care Team Providers Care Disintegrator Operator Name Role Phone Radha Gonzalez APRN Primary Care Provider Encounter Details Date Type Department Care Team (Latest Contact Info) Description 01/04/2025 Travel Social History Tobacco Use Types Packs/Day [...] documented as of this encounter Care Teams Disintegrator Operator Relationship Specialty Start Date End Date Radha Gonzalez APRN [address] [facility] [address] [place] [address] PCP - General Nurse Practitioner 01/04/25 documented as of this encounter
--- OUTSIDE RECORDS SUMMARY | 2025-01-24 13:09 | XMS_ITS | Clinical Summary ---
Author Organization [employer] ([place], [place], [place], [place], [place]) Address [address] [place] [address] Care Team Providers Care Finisher Plate Name Role Phone Radha Gonzalez APRN Primary Care Provider Allergies Active Allergy Reactions Criticality Noted Date [...] tablet (20 mg total) by mouth daily. 5 Active azelastine (ASTELIN) 137 mcg (0.1 %) [...] (six) hours as needed for wheezing. Active Encounters Date Type Department Care Team Description 01/17/2025 1:47 PM EST Anesthesia Event [facility] Surgery Department [address] [place] [address] Ermelinda Llanos, Julian Simmons MD 01/17/2025 1:25 PM EST - 01/17/2025 3:53 PM EST Surgery [facility] Surgery Department [address] [place] [address] Reno Whalen DPM LEFT ACHILLES REPAIR WITH GRAFT, LEFT CALCANEAL SPUR RESECTION, GASTROCNEMIUS RECESSION LEFT 01/17/2025 11:26 AM EST - 01/17/2025 5:45 PM EST Hospital Encounter [facility] Surgery Department [address] [place] [address] Reno Whalen, DPM Spontaneous rupture of flexor tendon of left lower leg; Left foot pain; Acquired external rotation of foot, right; Calcaneal spur of left foot Discharge Disposition: Home or Self Care 01/17/2025 Travel 01/04/2025 12:53 PM EDT - 01/04/2025 11:59 PM EDT Hospital Encounter [facility] Preadmission Testing [address] [facility] [address] [place] [address] Radha Gonzalez APRN Preop examination (Primary Dx) Discharge Disposition: Home or Self Care 01/04/2025 Travel from Last 3 Months Social History Tobacco Use Types Packs/Day Years [...] 01/04/2025 1:08 PM EDT Plan of Treatment Health Maintenance Due Date Last Done Comments Depression Screening (12+) 1994 HIV Screening 1997 Hepatitis C Screening 01/20/2000 DTAP/TDAP/TD VACCINES (1 - Tdap) 2001 Lipid Panel 2002 Pap Smear 2003 Breast Cancer Screening 2022 COVID-19 VACCINE ( - 2023-2 5 season) 2024 Influenza Vaccine (#1) 2024 Tobacco Cessation Counseling and Screening (12+) 01/04/2026 01/04/2025 Pneumococcal Vaccine: 0-49 Years Aged Out No longer eligible based on patient's age to complete this topic Goals Goal Patient Goal Type Associated Problems Recent Progress Patient-Stated? Author Autogenerat ed Goal Care Plan Autogenerated Problem No Dorita Med[employer] Implanted Type Area Instrument Fitter Device Identifier Shelf Expiration Date Model / Serial / Lot Newberry Knotless 4.5mm Cm-[id number] - [id number] Implanted:Qty : 1 on 01/17/2025 by Reno Whalen, SCOTTM at [facility] IMPLANTS Left: Leg [facility] MED 03/24/2029 CM-9145 / / [id number] Newberry Knotless 4.5mm -9145 - [id number] Implanted:Qty : 1 on 01/17/2025 by Reno Whalen, SCOTTM at [facility] IMPLANTS Left: Leg [facility] MED 01/25/2029 CM-9145 / / [id number] Cord Neox 3.0x3.0cm Rt Nx-Ur-3030 - [id number] Implanted:Qty : 1 on 01/17/2025 by Reno Whalen, SCOTTM at [facility] IMPLANTS Left: Achilles Tendon [employer] 07/19/2026 NX-UR-3030 / [id number] / Procedures Procedure Name Priority Date/Time Associated Diagnosis Comments XR FOOT 3 VIEWS LEFT STAT 01/17/2025 4:35 PM EST TISSUE EXAM (CHERY ORNELAS) AP Routine 01/17/2025 3 :02 PM EST Spontaneous rupture of flexor tendon of left lower leg Left foot pain Acquired external rotation of foot, right Calcaneal spur of left foot ANESTHESIA INTUBATION Routine 01/17/2025 1:55 PM EST OR GASTROCNEMIUS RECESSION 01/17/2025 1:47 PM EST Spontaneous rupture of flexor tendon of left lower leg Left foot pain Acquired external rotation of foot, right Calcaneal spur of left foot Case Notes FADY OR OSTECTOMY CALCANEUS 01/17/2025 1:47 PM EST Spontaneous rupture of flexor tendon of left lower leg Left foot pain Acquired external rotation of foot, right Calcaneal spur of left foot Case Notes FADY OR RPR PRIMARY OPEN/PRQ RUPTURED ACHILLES W/GRAFT 01/17/2025 [...] white fibrous tissue and cardona-yellow, jagged bone. Drag Out Worker portions are wrapped and submitted in block A1 following decalcification. 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 Block type: adductor [...] POCT , urine (01/17/2025 12:49 PM EST) POC, URINE HCG Negative Negative INTERNAL QC (VALID/INVALID) Valid Kit Lot Number [id number] Expiration Date 02/21/26 01/17/2025 12:4 9 PM EST us Julian Barrera MD FS_MODEL_IP_POINT OF CARE TEST ENTER/EDIT ORDERABLES Final Result * Glucose, Nova Meter (01/17/2025 11:43 AM EST) Pathologist [facility] POC-GLUCOSE 87 70 - 110 mg/dL 01/17/2025 11:49 AM EST [facility] Comment:In the event of poor peripheral blood flow, venous or arterial blood should be used due to the potential of erroneous results. Powder Mill Operator [id number] 01/17/2025 11:49 AM EST [facility] Blood WHOLE BLOOD / Unknown 01/17/2025 11:43 AM EST 01/17/2025 11:49 AM EST Reno Whalen DP POINT OF CARE TEST ORDERABLE S Final Result Performing Organization Address City/State/[facility] Co de Phone Number [facility] [address] [phone] * EKG-SCANNED (01/17/2025) Narrative 01/17/2025 Ordered by an unspecified provider. us Default Scanning Provider SCAN ORDERS Final Result * (ABNORMAL) CBC with automated diff (01/04/2025 1:07 PM EDT) Pathologist [facility] WBC 5.8 3.9 - 10.0 K/ L 01/04/2025 1:40 PM EDT [facility] RBC 4.15 3.93 - 5.22 M/ L 01/04/2025 1:40 PM EDT [facility] Hemoglobin 11.3 11.2 - 15.7 GM/DL 01/04/2025 1:40 PM EDT [facility] Hematocrit 35.1 34.1 - 44.9 % 01/04/2025 1:40 PM EDT [facility] MCV 85 79 - 95 fL 01/04/2025 1:40 PM EDT [facility] MCH 27.2 25.6 - 32.2 pg 01/04/2025 1:40 PM EDT [facility] MCHC 32.2 32.2 - 36.5 GM/DL 01/04/2025 1:40 PM EDT [facility] RDW 14.2 11.6 - 14.4 % 01/04/2025 1:40 PM EDT [facility] Platelets 280 163 - 369 K/CU MM 01/04/2025 1:40 PM EDT [facility] MPV 10.1 9.4 - 12.4 fL 01/04/2025 1:40 PM EDT [facility] % Neutros 56 34 - 71 % 01/04/2025 1:40 PM EDT [facility] % Lymphs 28 19 - 53 % 01/04/2025 1:40 PM EDT [facility] % Monos 7 4 - 13 % 01/04/2025 1:40 PM EDT [facility] % Eos 7.5(H) 1.0 - 7.0 % 01/04/2025 1:40 PM EDT [facility] % Baso 1 0 - 1 % 01/04/2025 1:40 PM EDT [facility] # Neutros 3.24 1.56 - 6.13 K/ L 01/04/2025 1:40 PM EDT [facility] # Lymphs 1.63 1.18 - 3.74 K/ L 01/04/2025 1:40 PM EDT [facility] # Monos 0.40 0.24 - 0.82 K/ L 01/04/2025 1:40 PM EDT [facility] # Eos 0.43 0.04 - 0.54 K/ L 01/04/2025 1:40 PM EDT [facility] # Baso 0.03 0.01 - 0.08 K/ L 01/04/2025 1:40 PM EDT [facility] % Imm Grans 0.30 0.00 - 0.60 % 01/04/2025 1:40 PM EDT [facility] # IG 0.02 0.00 - 0.05 K/uL 01/04/2025 1:40 PM EDT [facility] Blood Venipuncture / Unknown 01/04/2025 1:07 PM EDT 01/04/2025 1:36 PM EDT Narrative [facility] - 01/04/2025 1:40 PM EDT When [...] Atypical Lymph flag noted us Reno Whalen DP LAB BLOOD ORDERABLES Final R esult [facility] [address] [phone] * (ABNORMAL) Comprehensive metabolic panel (01/04/2025 1:07 PM EDT) Sodium 136 136 - 146 meq/L 01/04/2025 1:59 PM EDT [facility] Potassium 4.0 3.5 - 5.1 meq/L 01/04/2025 1:59 PM EDT [facility] Chloride 105 102 - 112 meq/L 01/04/2025 1:59 PM EDT [facility] CO2 27 21 - 32 meq/L 01/04/2025 1:59 PM EDT [facility] Calcium 8.8 8.5 - 10.1 mg/dL 01/04/2025 1:59 PM EDT [facility] Glucose 102(H) 74 - 100 mg/dL 01/04/2025 1:59 PM EDT [facility] BUN 9 7 - 22 mg/dL 01/04/2025 1:59 PM EDT [facility] Creatinine 0.81 0.55 - 1.02 mg/dL 01/04/2025 1:59 PM EDT [facility] BUN/Creatinine 11 8 - 20 01/04/2025 1:59 PM EDT [facility] Albumin 3.5 3.4 - 5.0 g/dL 01/04/2025 1:59 PM EDT [facility] Alkaline Phosphatase 115 27 - 136 U/L 01/04/2025 1:59 PM EDT [facility] ALT 18 12 - 78 U/L 01/04/2025 1:59 PM EDT [facility] AST 15 5 - 37 U/L 01/04/2025 1:59 PM EDT [facility] Total Bilirubin 0.2 0.2 - 1.3 mg/dL 01/04/2025 1:59 PM EDT [facility] Protein, Total 7.1 6.4 - 8.2 gm/dL 01/04/2025 1:59 PM EDT [facility] Anion Gap 8(L) 9 - 20 01/04/2025 1:59 PM EDT [facility] A/G Ratio 1.0(L) 1.1 - 2.5 01/04/2025 1:59 PM EDT [facility] Globulin 3.6 1.5 - 4.5 g/dL 01/04/2025 1:59 PM EDT [facility] Osmolality Calc 270.8 mOsm/kg 1:59 PM EDT [facility] eGFR (mL/min/1.73m2) >60 >=60 mL/min/1.7 3m2 01/04/2025 1:59 PM EDT [facility] Comment:ESTIMATED GFR IS NOT ACCURATE CREATININE CLEARANCE IN PREDICTING GLOMERULAR FILTRATION RATE. ESTIMATED GFR IS NOT APPLICABLE FOR DIALYSIS PATIENTS. Blood Venipuncture / Unknown 01/04/2025 1:07 PM EDT 01/04/2025 1:36 PM EDT us Reno Whalen DPCabrera LAB BLOOD ORDERABLES Final R esult [facility] [address] [employer] [place], [place] [address] [phone] * ECG 12 lead (01/04/2025 12:09 PM EDT) VENTRICULAR RATE EKG/MIN 99 BPM GE MUSE ATRIAL RATE (MCT) 99 BPM GE MUSE OR Interval 182 ms GE MUSE QRS-INTERVAL (MSEC) 84 ms GE MUSE QT Interval 332 ms GE MUSE QTC Interval 426 ms GE MUSE P [place] 52 degrees GE MUSE R AXIS (MCT) 71 degrees GE MUSE T Wave [place] 47 degrees GE MUSE [place] Diagnosis Normal sinus rhythm Normal ECG Confirmed by Jaylon MONTANEZ SUZANNE ([id number]) on 01/04/2025 6:03:54 PM GE MUSE 01/04/2025 12:0 9 PM EDT 01/04/2025 6:03 PM EDT Reno Whalen DPCabrera ECG ORDERABLES Final Result GE MUSE from Last 3 Months Additional Health Concerns Active Problems Noted Date Diagnosed Date Autogenerated Problem 12/20/2024 Insurance WORK COMP OTHER Member Subscriber Plan / Payer (Ef fective 2024-Present) Name:Winifred Sanders Relation to Subscriber:Self Name:Winifred Sanders Payer ID:[id number] (NAIC) Group ID:Not on file Type:Not on file Address: [facility] [address] [place] [id number] [place] [id number] WORK COMP OTHER Advance Directives For more information, please contact: [phone] * Full Code (Latest Code Status on File) Date Activated Date Inactivated Comments 01/17/2025 10:44 AM 01/17/2025 6:55 PM Care Teams Finisher Plate Relationship Specialty Start Date End Date Radha Gonzalez APRN [phone] [facility] [address] [place] [address] PCP - General Nurse Practitioner 01/04/25
== END 2025-01-23 23:59 | disposition home or self-care (01) ==
LOC: LAB.DROPOF 01-24 12:13
PROVIDERS: PCP Nurse Practitioner Family; Visit Provider Nurse Practitioner Family
DX: J11.1 Influenza due to unidentified influenza virus with other respiratory manifestations (principal); R00.0 Tachycardia, unspecified
CPT/HCPCS: 80053; 83735; 84443; 85025; 87631